=== PATIENT | male | born 1935 | race Caucasian/White ===

== ENCOUNTER 2018-07-30 22:55 | Emergency (ER) | payer MEDICARE, OTHER ==
[~2018-07-30] VITALS: Ht 180.3 cm; Wt 81.6 kg
[~2018-07-30 22:55] MED LIST: ACET325T21 PO; ALBU2.5V5 IH; AMLO5TAB7 PO; BISA10SU2 RC; CA C1TAB28 PO; CALC-98 PO; COLL30OI TP; DOCU-109 PO; FERR325T14 PO; FINA5TAB4 PO; GLIM2TAB PO; INSU100C SQ; INSU100I18 SQ; INSU100V31 SQ; LEVO125T5 PO; MULT-208 PO; POLY17PO29 PO; SITA50TA PO; TAMS0.4C2 PO; WARF-78 PO
[2018-07-31 00:12] LABS: BASO # 0.1 x10^3/uL (0.0-0.2); BASO % 1 % (0-3); EOS # 0.3 x10^3/uL (0.0-0.7); EOS % 4 % (0-3); HEMATOCRIT 29.1 % (39.0-53.0); HEMOGLOBIN 10.1 g/dL (13.0-17.5); LYMPH # 1.8 x10^3/uL (1.0-4.8); LYMPH % 26 % (24-48); MEAN CORPUSCULAR HEMOGLOBIN 31 pg (25-35); MEAN CORPUSCULAR HGB CONC 35 g/dL (31-37); MEAN CORPUSCULAR VOLUME 90 fL (79-100); MONO # 0.6 x10^3/uL (0.0-1.1); MONO % 8 % (0-9); NEUT # 4.1 x10^3uL (1.8-7.7); NEUT % 61 % (31-73); PLATELET COUNT 199 x10^3/uL (140-400); RED BLOOD COUNT 3.23 x10^6/uL (4.30-5.70); RED CELL DISTRIBUTION WIDTH 13.6 % (11.5-14.5); WHITE BLOOD COUNT 6.7 x10^3/uL (4.0-11.0)
--- NOTE | 2018-07-31 00:31 | PHYS DOC ---
Past Medical History Past Medical History: CAD, Diabetes-Type I, Hypothyroid, Prostatitis Additional Past Medical Histor: phabdomyolysis, anemia, fall, ulcer left foot, hypertrophy prostate Past Surgical History: Hip Replacement, Other Additional Past Surgical Histo: PARTIAL LEFT FOOT AMPUTATION Alcohol Use: None Drug Use: None Adult General Chief Complaint Chief Complaint: MECHANICAL FALL HPI HPI Patient is a 83 year old [f__sex] who presents with [] Review of Systems Review of Systems Constitutional: Denies fever or chills [] Eyes: Denies change in visual acuity, redness, or eye pain [] HENT: Denies nasal congestion or sore throat [] Respiratory: Denies cough or shortness of breath [] Cardiovascular: No additional information not addressed in HPI [] GI: Denies abdominal pain, nausea, vomiting, bloody stools or diarrhea [] : Denies dysuria or hematuria [] Musculoskeletal: Denies back pain or joint pain [] Integument: Denies rash or skin lesions [] Neurologic: Denies headache, focal weakness or sensory changes [] Endocrine: Denies polyuria or polydipsia [] All other systems were reviewed and found to be within normal limits, except as documented in this note. Allergies Allergies Allergies Coded Allergies Type Severity Reaction Last Updated Verified No Known Drug Allergies 10/14/15 No Physical Exam Physical Exam Constitutional: Well developed, well nourished, no acute distress, non-toxic appearance. [] HENT: Normocephalic, atraumatic, bilateral external ears normal, oropharynx moist, no oral exudates, nose normal. [] Eyes: PERRLA, EOMI, conjunctiva normal, no discharge. [] Neck: Normal range of motion, no tenderness, supple, no stridor. [] Cardiovascular:Heart rate regular rhythm, no murmur [] Lungs & Thorax: Bilateral breath sounds clear to auscultation [] Abdomen: Bowel sounds normal, soft, no tenderness, no masses, no pulsatile masses. [] Skin: Warm, dry, no erythema, no rash. [] Back: No tenderness, no CVA tenderness. [] Extremities: No tenderness, no cyanosis, no clubbing, ROM intact, no edema. [] Neurologic: Alert and oriented X 3, normal motor function, normal sensory function, no focal deficits noted. [] Psychologic: Affect normal, judgement normal, mood normal. [] Current Patient Data Vital Signs Vital Signs Date Time Temp Pulse Resp B/P (MAP) Pulse Ox O2 Delivery O2 Flow Rate FiO2 07/31/18 01:37 84 99 07/30/18 23:09 97.6 16 185/76 (112) Room Air 97.6 Lab Values Laboratory Tests Test 07/30/18 23:05 07/31/18 01:35 White Blood Count 6.7 x10^3/uL (4.0-11.0) Red Blood Count 3.23 x10^6/uL (4.30-5.70) L Hemoglobin 10.1 g/dL (13.0-17.5) L Hematocrit 29.1 % (39.0-53.0) L Mean Corpuscular Volume 90 fL (79-100) Mean Corpuscular Hemoglobin 31 pg (25-35) Mean Corpuscular Hemoglobin Concent 35 g/dL (31-37) Red Cell Distribution Width 13.6 % (11.5-14.5) Platelet Count 199 x10^3/uL (140-400) Neutrophils (%) (Auto) 61 % (31-73) Lymphocytes (%) (Auto) 26 % (24-48) Monocytes (%) (Auto) 8 % (0-9) Eosinophils (%) (Auto) 4 % (0-3) H Basophils (%) (Auto) 1 % (0-3) Neutrophils # (Auto) 4.1 x10^3uL (1.8-7.7) Lymphocytes # (Auto) 1.8 x10^3/uL (1.0-4.8) Monocytes # (Auto) 0.6 x10^3/uL (0.0-1.1) Eosinophils # (Auto) 0.3 x10^3/uL (0.0-0.7) Basophils # (Auto) 0.1 x10^3/uL (0.0-0.2) Prothrombin Time 15.0 SEC (11.7-14.0) H Prothrombin Time INR 1.2 (0.8-1.1) H PTT 36 SEC (24-38) Sodium Level 140 mmol/L (136-145) Potassium Level 4.6 mmol/L (3.5-5.1) Chloride Level 107 mmol/L (98-107) Carbon Dioxide Level 24 mmol/L (21-32) Anion Gap 9 (6-14) Blood Urea Nitrogen 29 mg/dL (8-26) H Creatinine 1.9 mg/dL (0.7-1.3) H Estimated GFR (Cockcroft-Gault) 33.9 BUN/Creatinine Ratio 15 (6-20) Glucose Level 263 mg/dL (70-99) H Calcium Level 8.4 mg/dL (8.5-10.1) L Magnesium Level 1.6 mg/dL (1.8-2.4) L Total Bilirubin 0.2 mg/dL (0.2-1.0) Aspartate Amino Transferase (AST) 17 U/L (15-37) Alanine Aminotransferase (ALT) 25 U/L (16-63) Alkaline Phosphatase 108 U/L (46-116) Creatine Kinase 107 U/L (39-308) Creatine Kinase MB (Mass) 1.4 ng/mL (0.0-3.6) Creatine Kinase MB Relative Index 1.3 % (0-4) Troponin I Quantitative < 0.017 ng/mL (0.000-0.055) Total Protein 6.6 g/dL (6.4-8.2) Albumin 2.8 g/dL (3.4-5.0) L Albumin/Globulin Ratio 0.7 (1.0-1.7) L Urine Collection Type Unknown Urine Color Yellow Urine Clarity Clear Urine pH 6.0 Urine Specific [place] 1.010 Urine Protein Negative mg/dL (NEG-TRACE) Urine Glucose (UA) 100 mg/dL (NEG) Urine Ketones (Stick) Negative mg/dL (NEG) Urine Blood Negative (NEG) Urine Nitrite Negative (NEG) Urine Bilirubin Negative (NEG) Urine Urobilinogen Dipstick 0.2 mg/dL (0.2 mg/dL) Urine Leukocyte Esterase Negative (NEG) Urine RBC Occ /HPF (0-2) Urine WBC Occ /HPF (0-4) Urine Squamous Epithelial Cells Few /LPF Urine Bacteria Few /HPF (0-FEW) Laboratory Tests 07/30/18 23:05 Laboratory Tests 07/30/18 23:05 EKG EKG @0018 NSR at 83bpm, NO ST elevation, Radiology/Procedures Radiology/Procedures [] Course & Med Decision Making Course & Med Decision Making Pertinent Labs and Imaging studies reviewed. (See chart for details) [] Dragon Disclaimer Dragon Disclaimer This electronic medical record was generated, in whole or in part, using a voice recognition dictation system. Departure Departure Impression: Primary Impression: Fall Additional Impressions: Contusion of hip, left Knee pain Disposition: 01 HOME, SELF-CARE Condition: STABLE Referrals: SHELLIE WILLIS MD (PCP) ALVAREZ GARCIA MD Patient Instructions: Arthritis, Nonspecific, [id number], Contusion, Easy-to- Read, Fall Prevention and Home Safety, [id number] Problem Qualifiers Primary Impression: Fall Encounter type: initial encounter Qualified Codes: W19.XXXA - Unspecified fall, initial encounter Additional Impressions: Contusion of hip, left Encounter type: initial encounter Qualified Codes: S70.02XA - Contusion of left hip, initial encounter Knee pain Chronicity: acute Laterality: left Qualified Codes: M25.562 - Pain in left knee SHANTHI WHITE DO Jul 31, 2018 00:31
[2018-07-31 00:32] LABS: CALCIUM 8.4 mg/dL (8.5-10.1); CREATININE 1.9 mg/dL (0.7-1.3); GFR 33.9; POTASSIUM 4.6 mmol/L (3.5-5.1)
[2018-07-31 00:37] LABS: ALBUMIN 2.8 g/dL (3.4-5.0); ALBUMIN/GLOBULIN RATIO 0.7 (1.0-1.7); MAGNESIUM 1.6 mg/dL (1.8-2.4); TOTAL BILIRUBIN 0.2 mg/dL (0.2-1.0); TOTAL PROTEIN 6.6 g/dL (6.4-8.2)
--- NOTE | 2018-07-31 01:42 | RAD ---
CT Head W/O Contrast: History: HEAD/NECK PAIN AFTER FALL X TONIGHT Comparison: none Axial images were obtained without contrast. There is moderate diffuse atrophy. There is no mass effect, extraaxial fluid collections or hydrocephalus. There is no gross bleed. Moderate diffuse periventricular and subcortical white matter hypoattenuation is seen. There is no focal loss of craig-white matter distinction to suggest acute ischemia, i.e. stroke. Impression: No acute findings. End impression CT C-Spine without contrast: Clinical History: HEAD/NECK PAIN AFTER FALL X TONIGHT Technique: Axial helical images of the cervical spine were obtained without contrast, axial coronal and sagittal reconstruction was performed. Findings: There is no loss of vertebral body stature. There is no prevertebral soft tissue swelling. The vertebral bodies are well aligned. The C1-C2 relationship is normal. The visualized osseous structures appear normal. Evaluation of the central canal is limited without contrast. There is multiple posterior disc bulges resulting in flattening of the thecal sac. There does not appear to be gross flattening of the cervical cord. There is marked narrowing of multiple neuroforamen. Impression: No acute findings. Clinical correlation suggested. PQRS Compliance Statement: One or more of the following individualized dose reduction techniques were utilized for this examination: 1. Automated exposure control 2. Adjustment of the mA and/or kV according to patient size 3. Use of iterative reconstruction technique Electronically signed by: Marcell Alfred III, MD (07/31/2018 1:39 AM) [facility]
[2018-07-31 01:45] LABS: BILIRUBIN,URINE NEGATIVE (NEG); CLARITY,URINE CLEAR; COLOR,URINE YELLOW; NITRITE,URINE NEGATIVE (NEG); PROTEIN,URINE NEGATIVE (NEG-TRACE); UROBILINOGEN,URINE 0.2 mg/dL (0.2 mg/dL)
--- NOTE | 2018-07-31 01:46 | RAD ---
Pelvis and two-view left hip HISTORY: Pain after fall AP view pelvis AP and frog-leg view left hip There is a left hip total arthroplasty. The visualized osseous structures appear normal. The femoral and acetabular components are aligned and well seated. There is ossification medial to the left hip. IMPRESSION: No acute findings. End impression 3 views left knee: AP lateral and oblique views of the left knee were obtained There is mild degenerative changes of all 3 compartments with marginal spurring. There is no interruption of cortex to suggest a fracture. IMPRESSION: No acute findings. Electronically signed by: Marcell Alfred III, MD (07/31/2018 1:42 AM) [facility]
--- NOTE | 2018-07-31 01:56 | EKG ---
[facility] [address] [place] [address] Test Date: 2018-07-31 Test Time: 00:18:49 Pat Name: SATINDER DELACRUZ Department: Room: Gender: M [employer] Administrator: : 1935 Requested By: SHANTHI WHITE Order Number: [id number] Reading MD: Bernardo Cuenca MD Measurements Intervals [place] Rate: 83 P: 0 CA: 242 QRS: -16 QRSD: 74 T: 30 QT: 348 QTc: 414 Interpretive Statements SINUS RHYTHM PROLONGED CA INTERVAL Electronically Signed On 08-01-2018 11:43:28 CDT by Bernardo Cuenca MD
[2018-07-31 01:57] LABS: BACTERIA,URINE FEW /HPF (0-FEW); RBC,URINE OCC /HPF (0-2); SQUAMOUS EPITHELIAL CELL,UR FEW /LPF; WBC,URINE OCC /HPF (0-4)
[2018-07-31 02:37] VITALS: BP 172/75
== END 2018-07-31 03:01 | disposition home or self-care (01) ==
LOC: ER 22:55
DX: S70.02XA Contusion of left hip, initial encounter (principal); M25.562 Pain in left knee; E10.9 Type 1 diabetes mellitus without complications; E03.9 Hypothyroidism, unspecified; I25.10 Atherosclerotic heart disease of native coronary artery without angina pectoris; Z96.642 Presence of left artificial hip joint; W01.0XXA Fall on same level from slipping, tripping and stumbling without subsequent striking against object, initial encounter; Y93.01 Activity, walking, marching and hiking; Y92.098 Other place in other non-institutional residence as the place of occurrence of the external cause; Y99.8 Other external cause status
CPT/HCPCS: 36415; 70450; 72125; 73502; 73562; 80053; 81001; 82553; 83735; 84484; 85025; 85610; 85730; 93005; 99285; P9612

== ENCOUNTER 2018-12-19 16:28 | Inpatient (IN) | payer MEDICARE, OTHER ==
[~2018-12-19] VITALS: Ht 182.9 cm; Wt 81.6 kg
[~2018-12-19 16:28] MED LIST changes: +AMLO5TAB10 PO; -AMLO5TAB7 PO
--- NOTE | 2018-12-19 16:58 | PHYS DOC ---
Past Medical History Past Medical History: CAD, Diabetes-Type I, Hypothyroid, Prostatitis Additional Past Medical Histor: phabdomyolysis, anemia, fall, ulcer left foot, hypertrophy prostate Past Surgical History: Hip Replacement, Other Additional Past Surgical Histo: PARTIAL LEFT FOOT AMPUTATION Alcohol Use: None Drug Use: None Adult General Chief Complaint Chief Complaint: ABNORMAL LABS HPI HPI Patient is an 83-year-old male who presents to the emergency department for evaluation. He arrives from his nursing facility for reportedly abnormal labs, and his potassium was reportedly 5.4. He has no complaints at this time. Denies any pain, or shortness of breath. He is oriented to person and time, but not to place. He denies any nausea, vomiting, abdominal pain, or urinary symptoms. There are no alleviating or exacerbating factors to his symptoms otherwise. Review of Systems Review of Systems Constitutional: Denies fever or chills [] Eyes: Denies change in visual acuity, redness, or eye pain [] HENT: Denies nasal congestion or sore throat [] Respiratory: Denies cough or shortness of breath [] Cardiovascular:The patient denies any shortness of breath, chest pain, palpitations, or orthopnea [] GI: Denies abdominal pain, nausea, vomiting, bloody stools or diarrhea [] : Denies dysuria or hematuria [] Musculoskeletal: Denies back pain or joint pain [] Integument: Denies rash or skin lesions [] Neurologic: Denies headache, focal weakness or sensory changes [] Endocrine: Denies polyuria or polydipsia [] All other systems were reviewed and found to be within normal limits, except as documented in this note. Current Medications Current Medications Current Medications Medications (Trade) Dose Ordered Sig/Karol Start Time Stop Time Status Last Admin Dose Admin Sodium Chloride 1,000 ml @ 125 mls/hr 1X ONCE 12/19/18 20:00 12/20/18 03:59 Allergies Allergies Allergies Coded Allergies Type Severity Reaction Last Updated Verified No Known Drug Allergies 10/14/15 No Physical Exam Physical Exam PHYSICAL EXAM: CONSTITUTIONAL: Well developed, well nourished HEAD: normocephalic, atraumatic EENT: PERRL, EOMI. Conjunctivae normal color, sclerae non-icteric; moist mucous membranes. NECK: Supple, non-tender; no meningismus. LUNGS: Lungs CTA, breathing even and unlabored. Normal air movement. HEART: Regular rate and rhythm, no murmur CHEST: No deformity; non-tender ABDOMEN: The abdomen is soft, there is mild diffuse tenderness to palpation of the abdomen, without focal tenderness, rebound, or guarding, normal bowel sounds are present. EXTREM: Normal ROM; no deformity, no calf tenderness. Normal pulses palpable in all extremities. There is no pedal edema. SKIN: No rash; no diaphoresis NEURO: Alert; normal speech and cognition; CN's grossly intact; strength grossly intact without focal deficit. BACK: No CVA TTP. Current Patient Data Vital Signs Vital Signs Date Time Temp Pulse Resp B/P (MAP) Pulse Ox O2 Delivery O2 Flow Rate FiO2 12/19/18 19:02 90 17 117/57 (77) 98 Room Air 12/19/18 16:28 97.8 97.8 Lab Values Laboratory Tests Test 12/19/18 18:10 White Blood Count 7.0 x10^3/uL (4.0-11.0) Red Blood Count 3.45 x10^6/uL (4.30-5.70) L Hemoglobin 10.1 g/dL (13.0-17.5) L Hematocrit 31.5 % (39.0-53.0) L Mean Corpuscular Volume 91 fL (79-100) Mean Corpuscular Hemoglobin 29 pg (25-35) Mean Corpuscular Hemoglobin Concent 32 g/dL (31-37) Red Cell Distribution Width 13.3 % (11.5-14.5) Platelet Count 234 x10^3/uL (140-400) Neutrophils (%) (Auto) 63 % (31-73) Lymphocytes (%) (Auto) 25 % (24-48) Monocytes (%) (Auto) 9 % (0-9) Eosinophils (%) (Auto) 2 % (0-3) Basophils (%) (Auto) 1 % (0-3) Neutrophils # (Auto) 4.4 x10^3uL (1.8-7.7) Lymphocytes # (Auto) 1.8 x10^3/uL (1.0-4.8) Monocytes # (Auto) 0.6 x10^3/uL (0.0-1.1) Eosinophils # (Auto) 0.1 x10^3/uL (0.0-0.7) Basophils # (Auto) 0.0 x10^3/uL (0.0-0.2) Prothrombin Time 18.0 SEC (11.7-14.0) H Prothrombin Time INR 1.5 (0.8-1.1) H Sodium Level 139 mmol/L (136-145) Potassium Level 5.9 mmol/L (3.5-5.1) H Chloride Level 109 mmol/L (98-107) H Carbon Dioxide Level 19 mmol/L (21-32) L Anion Gap 11 (6-14) Blood Urea Nitrogen 46 mg/dL (8-26) H Creatinine 2.3 mg/dL (0.7-1.3) H Estimated GFR (Cockcroft-Gault) 27.2 BUN/Creatinine Ratio 20 (6-20) Glucose Level 199 mg/dL (70-99) H Calcium Level 8.9 mg/dL (8.5-10.1) Total Bilirubin 0.2 mg/dL (0.2-1.0) Aspartate Amino Transferase (AST) 14 U/L (15-37) L Alanine Aminotransferase (ALT) 18 U/L (16-63) Alkaline Phosphatase 100 U/L (46-116) Troponin I Quantitative < 0.017 ng/mL (0.000-0.055) NQ-Dxv-Q-Type Natriuretic Peptide 248 pg/mL (0-449) Total Protein 7.1 g/dL (6.4-8.2) Albumin 2.9 g/dL (3.4-5.0) L Albumin/Globulin Ratio 0.7 (1.0-1.7) L Laboratory Tests 12/19/18 18:10 Laboratory Tests 12/19/18 18:10 EKG EKG [Normal sinus rhythm at a rate of 94 beats for minute, left axis deviation, normal intervals. No acute ischemic ST/T changes.] Radiology/Procedures Radiology/Procedures [] Course & Med Decision Making Course & Med Decision Making Pertinent Labs and Imaging studies reviewed. (See chart for details) [8:05 PM: The patient's condition remains stable. I spoke with the patient's PCP, who accepted the patient to the hospital for further evaluation and treatment.] Dragon Disclaimer Dragon Disclaimer This electronic medical record was generated, in whole or in part, using a voice recognition dictation system. Departure Departure Impression: Primary Impression: Acute renal failure Additional Impressions: Dehydration Hyperkalemia Disposition: 09 ADMITTED INPATIENT Admitting Physician: Shellie Willis Condition: STABLE Referrals: SHELLIE WILLIS MD (PCP) Problem Qualifiers SATINDER WEST MD Dec 19, 2018 16:58
[2018-12-19 18:24] LABS: BASO % 1 % (0-3); EOS # 0.1 x10^3/uL (0.0-0.7); EOS % 2 % (0-3); HEMATOCRIT 31.5 % (39.0-53.0); HEMOGLOBIN 10.1 g/dL (13.0-17.5); LYMPH # 1.8 x10^3/uL (1.0-4.8); LYMPH % 25 % (24-48); MEAN CORPUSCULAR HEMOGLOBIN 29 pg (25-35); MEAN CORPUSCULAR HGB CONC 32 g/dL (31-37); MEAN CORPUSCULAR VOLUME 91 fL (79-100); MONO # 0.6 x10^3/uL (0.0-1.1); MONO % 9 % (0-9); NEUT # 4.4 x10^3uL (1.8-7.7); NEUT % 63 % (31-73); PLATELET COUNT 234 x10^3/uL (140-400); RED BLOOD COUNT 3.45 x10^6/uL (4.30-5.70); RED CELL DISTRIBUTION WIDTH 13.3 % (11.5-14.5)
[2018-12-19 18:31] LABS: CALCIUM 8.9 mg/dL (8.5-10.1); CREATININE 2.3 mg/dL (0.7-1.3); GFR 27.2; POTASSIUM 5.9 mmol/L (3.5-5.1)
[2018-12-19 18:37] LABS: ALBUMIN 2.9 g/dL (3.4-5.0); ALBUMIN/GLOBULIN RATIO 0.7 (1.0-1.7); TOTAL BILIRUBIN 0.2 mg/dL (0.2-1.0); TOTAL PROTEIN 7.1 g/dL (6.4-8.2)
[2018-12-19] MEDS ORDERED: IV NORMAL SALINE 1000ML BAG 1,000 ML IV ONE (20:00)
[2018-12-19] MEDS ORDERED: IV NORMAL SALINE 500ML BAG 500 ML IV ONE (20:00)
--- NOTE | 2018-12-19 21:52 | NUR ---
The patient, SATINDER DELACRUZ, 83 y/o, M admitted by SHELLIE WILLIS MD, was given written information regarding hospital policies, unit procedures and contact persons. Valuables were checked and left with him.
[2018-12-19 22:00] VITALS: BP 137/67
[2018-12-20] MEDS ORDERED: INSU100I27 SQ (00:43)
[2018-12-20] MEDS ORDERED: LEVO137T3 PO (00:52)
[2018-12-20] MEDS ORDERED: MENT118G TP (01:03)
[2018-12-20] MEDS ORDERED: GABA-585 PO (01:03)
[2018-12-20] MEDS ORDERED: FLUT9.9S NS (01:03)
[2018-12-20] MEDS ORDERED: LINA5TAB PO (01:03)
[2018-12-20] MEDS ORDERED: CETI10TA22 PO (01:03)
[2018-12-20] MEDS ORDERED: RIVA15TA PO (01:03)
[2018-12-20] MEDS ORDERED: LISI10TA2 PO (01:03)
[2018-12-20] MEDS ORDERED: CHOL10003 PO (01:03)
[2018-12-20] MEDS ORDERED: DEXTROSE 50% 25 GM / 50ML DISP.SYRIN. IV PRN (01:15)
[2018-12-20] MEDS ORDERED: NYSTATIN TOPICAL POWDER 15GM BOTTLE. TP ONE (02:00)
[2018-12-20 03:00] VITALS: BP 150/60
[2018-12-20 06:05] LABS: BASO % 1 % (0-3); EOS # 0.1 x10^3/uL (0.0-0.7); EOS % 2 % (0-3); HEMATOCRIT 30.4 % (39.0-53.0); HEMOGLOBIN 9.6 g/dL (13.0-17.5); LYMPH # 1.2 x10^3/uL (1.0-4.8); LYMPH % 18 % (24-48); MEAN CORPUSCULAR HEMOGLOBIN 29 pg (25-35); MEAN CORPUSCULAR HGB CONC 32 g/dL (31-37); MEAN CORPUSCULAR VOLUME 92 fL (79-100); MONO # 0.6 x10^3/uL (0.0-1.1); MONO % 9 % (0-9); NEUT # 4.7 x10^3uL (1.8-7.7); NEUT % 70 % (31-73); PLATELET COUNT 211 x10^3/uL (140-400); RED BLOOD COUNT 3.32 x10^6/uL (4.30-5.70); RED CELL DISTRIBUTION WIDTH 13.3 % (11.5-14.5); WHITE BLOOD COUNT 6.6 x10^3/uL (4.0-11.0)
[2018-12-20 07:00] VITALS: BP 148/50
--- NOTE | 2018-12-20 07:34 | EKG ---
[facility] [address] [place] [address] Test Date: 2018-12-19 Test Time: 17:09:59 Pat Name: SATINDER DELACRUZ Department: Room: 516 1 Gender: M [employer] Tender: : 1935 Requested By: SATINDER WEST Order Number: [id number] Reading MD: Bernardo Cuenca MD Measurements Intervals [place] Rate: 94 P: -6 VA: 218 QRS: -18 QRSD: 70 T: 5 QT: 318 QTc: 398 Interpretive Statements SINUS RHYTHM PROLONGED VA INTERVAL LEFTWARD AXIS QRS(T) CONTOUR ABNORMALITY CONSISTENT WITH INFERIOR INFARCT PROBABLY OLD ABNORMAL ECG Electronically Signed On 12-23-2018 16:01:38 CDT by Bernardo Cuenca MD
[2018-12-20 07:50] LABS: CALCIUM 8.7 mg/dL (8.5-10.1); CREATININE 1.6 mg/dL (0.7-1.3); GFR 41.4; POTASSIUM 4.9 mmol/L (3.5-5.1)
--- NOTE | 2018-12-20 07:57 | NUR ---
Chart review done and spoke w/ RN. Pt from [place]. RN indicated pt was normally up w/ RW and weak at this time. Would benefit from PT/OT Eval and Treat. Addendum: 12/20/18 at 0758 by JOSE BONILLA OT Amended: Links added.
[2018-12-20] MEDS ORDERED: ALBUTEROL SULFATE 2.5 MG/3 ML NEBU. NEB PRN (09:00)
[2018-12-20] MEDS ORDERED: ACETAMINOPHEN 325 MG TABLET. PO PRN (09:00)
[2018-12-20] MEDS ORDERED: NON FORMULARY ITEM (Menthol (Biofreeze) 118 ML) TP PRN (09:00)
--- NOTE | 2018-12-20 09:04 | HP ---
ADMIT DATE: 12/19/2018 CHIEF COMPLAINT AND HISTORY OF PRESENT ILLNESS: This 83-year-old, [facility] resident, is sent to the Emergency Department for evaluation because of abnormal labs. The patient had not been acting or eating quite right for a while, necessitating the labs. He had acute renal failure as well as hyperkalemia, was sent to the Emergency Room where this was confirmed and the patient was admitted. PAST MEDICAL HISTORY: Remarkable for coronary artery disease, diabetes, hypothyroidism, prostatitis, BPH, history of rhabdomyolysis, anemia, prior ulcer of the left foot. PAST SURGICAL HISTORY: He has had a prior hip replacement and partial left foot amputation. MEDICATIONS: Brought with the patient, listed on the computer and have been addressed. ALLERGIES: He has no known drug allergies. SOCIAL HISTORY: He is a long term resident, nonsmoker, nondrinker, does not use drugs. FAMILY HISTORY: Noncontributory. REVIEW OF SYSTEMS: Remarkable just for generally not feeling well and really does not like the hospital bed. PHYSICAL EXAMINATION: GENERAL: He is a well-developed, well-nourished white male, in no acute distress. VITAL SIGNS: Stable. He is afebrile. HEAD, EYES, EARS, NOSE AND THROAT: Unremarkable. NECK: Supple without adenopathy or thyromegaly. CHEST: Clear to auscultation and percussion. HEART: Regular rate and rhythm without S3, S4, or murmur. ABDOMEN: Soft, nontender, without hepatosplenomegaly or masses. EXTREMITIES: Without cyanosis or clubbing, significant edema. NEUROLOGIC: He is intact without focal deficits. LABORATORY DATA: On admission revealed a hemoglobin of 10.1. Initial BUN and creatinine are 46 and 2.3, with a potassium of 5.9. By the following morning of my dictation, his potassium is down to 4.9, BUN and creatinine have decreased at 37 and 1.6. IMPRESSION: 1. Acute renal failure with hyperkalemia, likely related to dehydration. 2. Other problems listed above. PLAN: The patient has been admitted. Renal will be asked for any suggestions and the patient will be monitored, managed and treated appropriately. SHELLIE WILLIS MD DR: NILDA/radha JOB#: [id number] / [id number]
[2018-12-20] MEDS: GABAPENTIN 100 MG CAPSULE. PO SCH ×3 (09:32→21:15)
[2018-12-20] MEDS: CHOLECALCIFEROL (VITAMIN D3) 1,000 UNIT TABLET PO SCH (09:32)
[2018-12-20] MEDS: MULTIVITAMIN with MINERAL TABLET. PO SCH (09:32)
[2018-12-20] MEDS: NYSTATIN TOPICAL POWDER 15GM BOTTLE. TP SCH ×2 (09:32→21:15)
[2018-12-20] MEDS: FLUTICASONE 50MCG/NASAL SPRAY 16GM BOTTLE. NS SCH (09:32)
[2018-12-20] MEDS: LEVOTHYROXINE 137 MCG TABLET PO SCH (09:32)
[2018-12-20] MEDS: FERROUS SULFATE 325 MG TABLET. PO SCH (09:32)
[2018-12-20] MEDS: VITAMIN B COMPLEX TABLET. PO SCH (09:32)
[2018-12-20] MEDS: CALCIUM CARB/VIT D3 500/200 TABLET. PO SCH ×2 (09:33→17:14)
[2018-12-20] MEDS: POLYETHYLENE GLYCOL 3350 17 GM PACKET. PO SCH (09:33)
[2018-12-20] MEDS: amLODIPine BESYLATE 5 MG TABLET PO SCH (09:33)
[2018-12-20] MEDS: LINAGLIPTIN 5 MG TABLET PO SCH (09:33)
[2018-12-20] MEDS: CETIRIZINE HCL 10 MG TABLET. PO SCH (09:33)
[2018-12-20] MEDS: INSULIN GLARGINE 300 UNITS/3 ML INSULN.PEN. SQ SCH ×2 (09:40→21:23)
[2018-12-20] MEDS: DOCUSATE SODIUM 100 MG CAPSULE. PO SCH ×2 (09:45→21:15)
--- NOTE | 2018-12-20 09:52 | NUR ---
Pt refused 1000 docusate sodium, did not want to take anymore pills. Admin Miralax for.
--- NOTE | 2018-12-20 10:09 | PDOC2 ---
CONSULT Date of Consult Date of Consult DATE: 12/20/18 TIME: 09:56 Reason for Consult Reason for Consult: GOVIND, Hyperkalemia Source Source: Chart review, Patient History of Present Illness Reason for Visit: Pt is 83-year-old, [facility] resident, is sent to the Emergency Department for evaluation because of abnormal labs. The patient had not been acting or eating quite right for a while, necessitating the labs. He had acute renal failure as well as hyperkalemia, was sent to the Emergency Room where this was confirmed and the patient was admitted. Currently denies any CP, SOB. No N/V/D. No Urinary complaints . Just feeling weak Current Problem List Problem List Problems Medical Problems: (1) Acute renal failure Status: Acute (2) Dehydration Status: Acute (3) Hyperkalemia Status: Acute Current Medications Current Medications Current Medications Sodium Chloride 500 ml @ 500 mls/hr 1X ONCE IV Last administered on at 20:33; Start 12/19/18 at 20:00; Stop 12/19/18 at 20:59; Status DC Sodium Chloride 1,000 ml @ 125 mls/hr 1X ONCE IV Last administered on at 20:34; Start 12/19/18 at 20:00; Stop 12/20/18 at 03:59; Status DC Dextrose (Dextrose 50%-Water Syringe) 12.5 gm PRN Q15MIN PRN IV SEE COMMENTS; Start 12/20/18 at 01:15 Nystatin (Nystop) 1 cameron BID TP Last administered on 12/20/18at 09:32; Start at 09:00 Nystatin (Nystop) 1 cameron 1X ONCE TP Last administered on 12/20/18at 01:57; Start 12/20/18 at 02:00; Stop 12/20/18 at 02:01; Status DC Acetaminophen (Tylenol) 325 mg PRN Q4HRS PRN PO MODERATE PAIN; Start 12/20/18 at 09:00 Albuterol Sulfate (Ventolin Neb Soln) 2.5 mg PRN Q6HRS PRN NEB SHORTNESS OF BREATH; Start 12/20/18 at 09:00 Amlodipine Besylate (Norvasc) 5 mg DAILY PO Last administered on 12/20/18at 09: 33; Start 12/20/18 at 10:00 Cetirizine HCl (ZyrTEC) 10 mg DAILY PO Last administered on 12/20/18 09:33; Start 12/20/18 at 10:00 Vitamin D (Vitamin D3) 1,000 unit DAILY PO Last administered on 12/20/18 09:32 ; Start 12/20/18 at 10:00 Docusate Sodium (Colace) 100 mg BID PO ; Start 12/20/18 at 10:00 Ferrous Sulfate (Feosol) 325 mg DAILY PO Last administered on 12/20/18 09:32; Start 12/20/18 at 10:00 Finasteride (Proscar) 5 mg HS PO ; Start 12/20/18 at 21:00 Gabapentin (Neurontin) 100 mg TID PO Last administered on 12/20/18 09:32; Start 12/20/18 at 10:00 Levothyroxine Sodium (Synthroid) 137 mcg DAILY07 PO Last administered on 09:32; Start 12/20/18 at 10:00 Linagliptin (Tradjenta) 5 mg DAILY PO Last administered on 12/20/18 09:33; Start 12/20/18 at 10:00 Rivaroxaban (Xarelto) 15 mg DAILYWSUP PO ; Start 12/20/18 at 17:00 Vitamin B Complex (Surinder B) 1 tab DAILY PO Last administered on 12/20/18 09:32 ; Start 12/20/18 at 10:00 Calcium/Vitamin D (Oscal D 500mg/ 200uts) 1 tab BIDWMEALS PO Last administered on 12/20/18 09:33; Start 12/20/18 at 10:00 Fluticasone Propionate (Flonase) 2 spray DAILY NS Last administered on 09:32; Start 12/20/18 at 10:00 Insulin Glargine (Lantus) 8 units QHS SQ ; Start 12/20/18 at 21:00 Insulin Glargine (Lantus) 25 units DAILY SQ Last administered on 12/20/18 09: 40; Start 12/20/18 at 10:00 Non-Formulary Medication (Menthol (Biofreeze)) 118 ml QIDPRN PRN TP PAIN; Start 12/20/18 at 09:00; Status UNV Multivitamins (Thera M Plus) 1 tab DAILY PO Last administered on 12/20/18at 09: 32; Start 12/20/18 at 10:00 Polyethylene Glycol (miraLAX PACKET) 17 gm DAILY PO Last administered on at 09:33; Start 12/20/18 at 10:00 Active Scripts Active Reported Gabapentin (Gabapentin) 100 Mg Capsule 100 Mg PO TID Flonase Allergy Relief (Fluticasone Propionate) 9.9 Ml [place].susp 2 Sprays NS DAILY Biofreeze (Menthol) 118 Ml Gel..ml. 118 Ml TP QIDPRN PRN Tradjenta (Linagliptin) 5 Mg Tablet 5 Mg PO DAILY Lisinopril 10 Mg Tablet 1 Tab PO DAILY Zyrtec (Cetirizine Hcl) 10 Mg Tablet 1 Tab PO DAILY Xarelto (Rivaroxaban) 15 Mg Tablet 15 Mg PO DAILY Vitamin D3 (Cholecalciferol (Vitamin D3)) 1,000 Unit Tablet 1 Tab PO DAILY Levothyroxine Sodium 137 Mcg Tablet 1 Tab PO DAILY Levemir Flextouch (Insulin Detemir) 100 Unit/1 Ml Insuln.pen 25 Unit SQ AM Multi-Day Vitamins (Multivitamin) 1 Each Tablet 1 Tab PO DAILY Miralax (Polyethylene Glycol 3350) 17 Gm Powd.pack 1 Packet PO DAILY Levemir Flexpen (Insulin Detemir) 100 Unit/1 Ml Insuln.pen 8 Unit SQ HS Albuterol Sulfate Neb Soln (Albuterol Sulfate) 2.5 Mg/3 Ml Vial.neb 2.5 Mg IH Q6HRS PRN Acetaminophen 325 Mg Tablet 325 Mg PO Q4HRS PRN Finasteride 5 Mg Tablet 5 Mg PO HS Colace (Docusate Sodium) 100 Mg Capsule 100 Mg PO BID Calcium + Vitamin D Tablet (Calcium Carbonate/Vitamin D3) 1 Each Tablet 500,200 Each PO BID Ferrous Sulfate 325 Mg Tablet 325 Mg PO DAILY Amlodipine Besylate 5 Mg Tablet 5 Mg PO DAILY Vitamin D3 1,000 Unit Tablet (Ca Cmb No.1/Vit D3/B-6/Fa/B12) 1 Each Tablet 1 Each PO DAILY Allergies Allergies: Coded Allergies: No Known Drug Allergies (Unverified , 10/14/15) ROS Review of System As per HPI Physical Exam Physical Exam GENERAL: NAD HEEN: Unremarkable, OM moist NECK: Supple CHEST: Clear to auscultation, Non labored breathing HEART: Regular rate and rhythm without S3, S4, or murmur. ABDOMEN: Soft, nontender, EXTREMITIES: Without cyanosis or clubbing, significant edema. NEUROLOGIC: Grossly Normal - No CVA or SP tenderness, No Hubbard Skin No Rash Vital Signs Vital Signs Date Time Temp Pulse Resp B/P (MAP) Pulse Ox O2 Delivery O2 Flow Rate FiO2 12/20/18 09:33 75 148/50 12/20/18 08:00 Room Air 12/20/18 07:00 98.0 16 100 98.0 Assessment & Plan GOVIND- Suspect Dehydration due to Poor PO intake Creat peaked at 2.3 , Improving down to 1.6 Recd IV NS, continue if Poor PO intake Monitor Strict I/O, daily weight (standing) repeat labs in am Hyperkalemia- K Normal this am Holding lisinopril Hypernatremia- Mild Sec to Dehydration CKD stage 3- Suspect Diab and HTN Nephrosclerosis Baseline Cr based on [facility] records 1.3-1.6 since 2012 DM- Primary managing HTN- On amlodipine and Lisinopril at Home 'Hold Lisinopril Labs Labs Laboratory Tests Test 12/19/18 18:10 12/19/18 22:16 12/20/18 05:50 12/20/18 08:18 White Blood Count 7.0 x10^3/uL (4.0-11.0) 6.6 x10^3/uL (4.0-11.0) Red Blood Count 3.45 x10^6/uL (4.30-5.70) 3.32 x10^6/uL (4.30-5.70) Hemoglobin 10.1 g/dL (13.0-17.5) 9.6 g/dL (13.0-17.5) Hematocrit 31.5 % (39.0-53.0) 30.4 % (39.0-53.0) Mean Corpuscular Volume 91 fL (79-100) 92 fL (79-100) Mean Corpuscular Hemoglobin 29 pg (25-35) 29 pg (25-35) Mean Corpuscular Hemoglobin Concent 32 g/dL (31-37) 32 g/dL (31-37) Red Cell Distribution Width 13.3 % (11.5-14.5) 13.3 % (11.5-14.5) Platelet Count 234 x10^3/uL (140-400) 211 x10^3/uL (140-400) Neutrophils (%) (Auto) 63 % (31-73) 70 % (31-73) Lymphocytes (%) (Auto) 25 % (24-48) 18 % (24-48) Monocytes (%) (Auto) 9 % (0-9) 9 % (0-9) Eosinophils (%) (Auto) 2 % (0-3) 2 % (0-3) Basophils (%) (Auto) 1 % (0-3) 1 % (0-3) Neutrophils # (Auto) 4.4 x10^3uL (1.8-7.7) 4.7 x10^3uL (1.8-7.7) Lymphocytes # (Auto) 1.8 x10^3/uL (1.0-4.8) 1.2 x10^3/uL (1.0-4.8) Monocytes # (Auto) 0.6 x10^3/uL (0.0-1.1) 0.6 x10^3/uL (0.0-1.1) Eosinophils # (Auto) 0.1 x10^3/uL (0.0-0.7) 0.1 x10^3/uL (0.0-0.7) Basophils # (Auto) 0.0 x10^3/uL (0.0-0.2) 0.0 x10^3/uL (0.0-0.2) Prothrombin Time 18.0 SEC (11.7-14.0) Prothromb Time International Ratio 1.5 (0.8-1.1) Sodium Level 139 mmol/L (136-145) 146 mmol/L (136-145) Potassium Level 5.9 mmol/L (3.5-5.1) 4.9 mmol/L (3.5-5.1) Chloride Level 109 mmol/L (98-107) 113 mmol/L (98-107) Carbon Dioxide Level 19 mmol/L (21-32) 21 mmol/L (21-32) Anion Gap 11 (6-14) 12 (6-14) Blood Urea Nitrogen 46 mg/dL (8-26) 37 mg/dL (8-26) Creatinine 2.3 mg/dL (0.7-1.3) 1.6 mg/dL (0.7-1.3) Estimated GFR (Cockcroft-Gault) 27.2 41.4 BUN/Creatinine Ratio 20 (6-20) Glucose Level 199 mg/dL (70-99) 72 mg/dL (70-99) Calcium Level 8.9 mg/dL (8.5-10.1) 8.7 mg/dL (8.5-10.1) Total Bilirubin 0.2 mg/dL (0.2-1.0) Aspartate Amino Transf (AST/SGOT) 14 U/L (15-37) Alanine Aminotransferase (ALT/SGPT) 18 U/L (16-63) Alkaline Phosphatase 100 U/L (46-116) Troponin I Quantitative < 0.017 ng/mL (0.000-0.055) EX-Mzm-W-Type Natriuretic Peptide 248 pg/mL (0-449) Total Protein 7.1 g/dL (6.4-8.2) Albumin 2.9 g/dL (3.4-5.0) Albumin/Globulin Ratio 0.7 (1.0-1.7) Glucose (Fingerstick) 87 mg/dL (70-99) 74 mg/dL (70-99) Laboratory Tests Test 12/19/18 18:10 12/19/18 22:16 12/20/18 05:50 12/20/18 08:18 White Blood Count 7.0 x10^3/uL (4.0-11.0) 6.6 x10^3/uL (4.0-11.0) Red Blood Count 3.45 x10^6/uL (4.30-5.70) 3.32 x10^6/uL (4.30-5.70) Hemoglobin 10.1 g/dL (13.0-17.5) 9.6 g/dL (13.0-17.5) Hematocrit 31.5 % (39.0-53.0) 30.4 % (39.0-53.0) Mean Corpuscular Volume 91 fL (79-100) 92 fL (79-100) Mean Corpuscular Hemoglobin 29 pg (25-35) 29 pg (25-35) Mean Corpuscular Hemoglobin Concent 32 g/dL (31-37) 32 g/dL (31-37) Red Cell Distribution Width 13.3 % (11.5-14.5) 13.3 % (11.5-14.5) Platelet Count 234 x10^3/uL (140-400) 211 x10^3/uL (140-400) Neutrophils (%) (Auto) 63 % (31-73) 70 % (31-73) Lymphocytes (%) (Auto) 25 % (24-48) 18 % (24-48) Monocytes (%) (Auto) 9 % (0-9) 9 % (0-9) Eosinophils (%) (Auto) 2 % (0-3) 2 % (0-3) Basophils (%) (Auto) 1 % (0-3) 1 % (0-3) Neutrophils # (Auto) 4.4 x10^3uL (1.8-7.7) 4.7 x10^3uL (1.8-7.7) Lymphocytes # (Auto) 1.8 x10^3/uL (1.0-4.8) 1.2 x10^3/uL (1.0-4.8) Monocytes # (Auto) 0.6 x10^3/uL (0.0-1.1) 0.6 x10^3/uL (0.0-1.1) Eosinophils # (Auto) 0.1 x10^3/uL (0.0-0.7) 0.1 x10^3/uL (0.0-0.7) Basophils # (Auto) 0.0 x10^3/uL (0.0-0.2) 0.0 x10^3/uL (0.0-0.2) Prothrombin Time 18.0 SEC (11.7-14.0) Prothromb Time International Ratio 1.5 (0.8-1.1) Sodium Level 139 mmol/L (136-145) 146 mmol/L (136-145) Potassium Level 5.9 mmol/L (3.5-5.1) 4.9 mmol/L (3.5-5.1) Chloride Level 109 mmol/L (98-107) 113 mmol/L (98-107) Carbon Dioxide Level 19 mmol/L (21-32) 21 mmol/L (21-32) Anion Gap 11 (6-14) 12 (6-14) Blood Urea Nitrogen 46 mg/dL (8-26) 37 mg/dL (8-26) Creatinine 2.3 mg/dL (0.7-1.3) 1.6 mg/dL (0.7-1.3) Estimated GFR (Cockcroft-Gault) 27.2 41.4 BUN/Creatinine Ratio 20 (6-20) Glucose Level 199 mg/dL (70-99) 72 mg/dL (70-99) Calcium Level 8.9 mg/dL (8.5-10.1) 8.7 mg/dL (8.5-10.1) Total Bilirubin 0.2 mg/dL (0.2-1.0) Aspartate Amino Transf (AST/SGOT) 14 U/L (15-37) Alanine Aminotransferase (ALT/SGPT) 18 U/L (16-63) Alkaline Phosphatase 100 U/L (46-116) Troponin I Quantitative < 0.017 ng/mL (0.000-0.055) MT-Yve-D-Type Natriuretic Peptide 248 pg/mL (0-449) Total Protein 7.1 g/dL (6.4-8.2) Albumin 2.9 g/dL (3.4-5.0) Albumin/Globulin Ratio 0.7 (1.0-1.7) Glucose (Fingerstick) 87 mg/dL (70-99) 74 mg/dL (70-99) Review All relevant outside records, renal labs, imaging studies, telemetry/EKG's were reviewed. RUMA BADILLO MD Dec 20, 2018 10:09
[2018-12-20 11:14] VITALS: BP 154/71
[2018-12-20 14:36] VITALS: BP 113/46
--- NOTE | 2018-12-20 15:43 | NUR ---
SW responding to a referral regarding pt is resident from [facility]. SW confirmed with Aimme at [facility] pt is LTC resident at facility and plan of return upon dc. Will continue to follow.
[2018-12-20] MEDS: RIVAROXABAN 15 MG TABLET. PO SCH (17:14)
[2018-12-20 19:00] VITALS: BP 116/43
[2018-12-20] MEDS: FINASTERIDE 5 MG TABLET. PO SCH (21:15)
[2018-12-20 23:00] VITALS: BP 152/65
[2018-12-21 03:00] VITALS: BP 127/77
[2018-12-21] MEDS: LEVOTHYROXINE 137 MCG TABLET PO SCH (05:20)
[2018-12-21 07:00] VITALS: BP 139/64
[2018-12-21 08:14] LABS: CALCIUM 8.7 mg/dL (8.5-10.1); CREATININE 1.5 mg/dL (0.7-1.3); GFR 44.6; POTASSIUM 4.7 mmol/L (3.5-5.1)
[2018-12-21] MEDS: CALCIUM CARB/VIT D3 500/200 TABLET. PO SCH ×2 (09:19→17:17)
[2018-12-21] MEDS: DOCUSATE SODIUM 100 MG CAPSULE. PO SCH ×2 (09:19→22:46)
[2018-12-21] MEDS: FLUTICASONE 50MCG/NASAL SPRAY 16GM BOTTLE. NS SCH (09:19)
[2018-12-21] MEDS: CHOLECALCIFEROL (VITAMIN D3) 1,000 UNIT TABLET PO SCH (09:20)
[2018-12-21] MEDS: FERROUS SULFATE 325 MG TABLET. PO SCH (09:20)
[2018-12-21] MEDS: CETIRIZINE HCL 10 MG TABLET. PO SCH (09:20)
[2018-12-21] MEDS: NYSTATIN TOPICAL POWDER 15GM BOTTLE. TP SCH ×2 (09:21→22:47)
[2018-12-21] MEDS: INSULIN GLARGINE 300 UNITS/3 ML INSULN.PEN. SQ SCH ×2 (09:21→22:57)
[2018-12-21] MEDS: GABAPENTIN 100 MG CAPSULE. PO SCH ×3 (09:22→22:46)
[2018-12-21] MEDS: POLYETHYLENE GLYCOL 3350 17 GM PACKET. PO SCH (09:22)
[2018-12-21] MEDS: VITAMIN B COMPLEX TABLET. PO SCH (09:22)
[2018-12-21] MEDS: amLODIPine BESYLATE 5 MG TABLET PO SCH (09:23)
[2018-12-21] MEDS: MULTIVITAMIN with MINERAL TABLET. PO SCH (09:23)
[2018-12-21] MEDS: LINAGLIPTIN 5 MG TABLET PO SCH (09:23)
--- NOTE | 2018-12-21 10:55 | PN ---
DATE: 12/21/2018 PATIENT LOCATION: Room 506. SUBJECTIVE: The patient is awake, alert. Denies any complaints. OBJECTIVE: VITAL SIGNS: Stable. He is afebrile. He is awake and alert. CHEST: Clear. HEART: Regular. ABDOMEN: Benign. LABORATORY DATA: Sugars have been decent. Creatinine has decreased down to 1.5 this morning. Sodium is still elevated at 146 and potassium is 4.7. Renal input is appreciated. IMPRESSION: 1. Acute renal failure, improving. 2. Hyperkalemia, resolved. 3. Dehydration with elevated sodium, suggesting still a little bit dry. 4. Diabetes. PLAN: Continue present care. I expect discharge as early as tomorrow depending on Renal final plans and thoughts. SHELLIE WILLIS MD DR: NILDA/radha JOB#: [id number] / [id number]
[2018-12-21 11:00] VITALS: BP 139/45
--- NOTE | 2018-12-21 11:45 | PDOC ---
SUBJECTIVE ROS Stable, No complaints OBJECTIVE Vital Signs Vital Signs Date Time Temp Pulse Resp B/P (MAP) Pulse Ox O2 Delivery O2 Flow Rate FiO2 12/21/18 09:23 82 139/64 12/21/18 07:00 98.3 18 96 Room Air 98.3 I & 0 Intake and Output 12/21/18 07:00 Intake Total 120 ml Balance 120 ml Intake Oral 120 ml # Voids 9 # Bowel Movements 2 PHYSICAL EXAM Physical Exam GENERAL: NAD HEEN: Unremarkable, OM moist NECK: Supple CHEST: Clear to auscultation, Non labored breathing HEART: Regular rate and rhythm without S3, S4, or murmur. ABDOMEN: Soft, nontender, EXTREMITIES: Without cyanosis or clubbing, significant edema. NEUROLOGIC: Grossly Normal - No CVA or SP tenderness, No Hubbard Skin No Rash DIAGNOSIS/ASSESSMENT Assessment & Plan GOVIND- Dehydration due to Poor PO intake Creat peaked at 2.3 , Improved with IVF down to 1.5 Monitor , labs in am Hyperkalemia- K Normal this am Holding lisinopril Hypernatremia- Mild Sec to Dehydration, Encourage water intake CKD stage 3- Suspect Diab and HTN Nephrosclerosis Baseline Cr based on [facility] records 1.3-1.6 since 2012 DM- Primary managing HTN- On amlodipine and Lisinopril at Home 'Hold Lisinopril COMMENT/RELEVANT DATA Meds Current Medications Medications (Trade) Dose Ordered Sig/Karol Start Time Stop Time Status Last Admin Dose Admin Acetaminophen (Tylenol) 325 mg PRN Q4HRS PRN 12/20/18 09:00 Albuterol Sulfate (Ventolin Neb Soln) 2.5 mg PRN Q6HRS PRN 12/20/18 09:00 Amlodipine Besylate (Norvasc) 5 mg DAILY 12/20/18 10:00 12/21/18 09:23 5 MG Calcium/Vitamin D (Oscal D 500mg/ 200uts) 1 tab BIDWMEALS 12/20/18 10:00 12/21/18 09:19 1 TAB Cetirizine HCl (ZyrTEC) 10 mg DAILY 12/20/18 10:00 12/21/18 09:20 10 MG Dextrose (Dextrose 50%-Water Syringe) 12.5 gm PRN Q15MIN PRN 12/20/18 01:15 Docusate Sodium (Colace) 100 mg BID 12/20/18 10:00 12/20/18 21:15 100 MG Ferrous Sulfate (Feosol) 325 mg DAILY 12/20/18 10:00 12/21/18 09:20 325 MG Finasteride (Proscar) 5 mg HS 12/20/18 21:00 12/20/18 21:15 5 MG Fluticasone Propionate (Flonase) 2 spray DAILY 12/20/18 10:00 12/21/18 09:19 2 SPRAY Gabapentin (Neurontin) 100 mg TID 12/20/18 10:00 12/21/18 09:22 100 MG Insulin Glargine (Lantus) 25 units DAILY 12/20/18 10:00 12/20/18 09:40 25 UNITS Levothyroxine Sodium (Synthroid) 137 mcg DAILY07 12/20/18 10:00 12/21/18 05:20 137 MCG Linagliptin (Tradjenta) 5 mg DAILY 12/20/18 10:00 12/21/18 09:23 5 MG Multivitamins (Thera M Plus) 1 tab DAILY 12/20/18 10:00 12/21/18 09:23 1 TAB Non-Formulary Medication (Menthol (Biofreeze)) 118 ml QIDPRN PRN 12/20/18 09:00 UNV Nystatin (Nystop) 1 cameron 1X ONCE 12/20/18 02:00 12/20/18 02:01 DC 12/20/18 01:57 1 CAMERON Polyethylene Glycol (miraLAX PACKET) 17 gm DAILY 12/20/18 10:00 12/20/18 09:33 17 GM Rivaroxaban (Xarelto) 15 mg DAILYWSUP 12/20/18 17:00 12/20/18 17:14 15 MG Sodium Chloride 1,000 ml @ 125 mls/hr 1X ONCE 12/19/18 20:00 12/20/18 03:59 DC 12/19/18 20:34 125 MLS/HR Vitamin B Complex (Surinder B) 1 tab DAILY 12/20/18 10:00 12/21/18 09:22 1 TAB Vitamin D (Vitamin D3) 1,000 unit DAILY 12/20/18 10:00 12/21/18 09:20 1,000 UNIT Lab Laboratory Tests Test 12/20/18 16:45 12/20/18 20:08 12/21/18 06:20 12/21/18 07:24 Glucose (Fingerstick) 110 mg/dL (70-99) 144 mg/dL (70-99) 70 mg/dL (70-99) Sodium Level 146 mmol/L (136-145) Potassium Level 4.7 mmol/L (3.5-5.1) Chloride Level 111 mmol/L (98-107) Carbon Dioxide Level 23 mmol/L (21-32) Anion Gap 12 (6-14) Blood Urea Nitrogen 29 mg/dL (8-26) Creatinine 1.5 mg/dL (0.7-1.3) Estimated GFR (Cockcroft-Gault) 44.6 Glucose Level 70 mg/dL (70-99) Calcium Level 8.7 mg/dL (8.5-10.1) Results All relevant outside records, renal labs, imaging studies, telemetry/EKG's were reviewed. RUMA BADILLO MD Dec 21, 2018 11:45
[2018-12-21 15:00] VITALS: BP 130/95
--- NOTE | 2018-12-21 15:56 | NUR ---
Wound care: Patient seen per wound care consult. See wound assessment. Dressing removed and wound cleansed and assessed. Patient has DFU to right great toe. Recommendations for honey-alginate (left in room for next dressing change) to wound bed covered with Aquacel foam dressing. Dressing applied. Complete head to toe assessment completed and no other wounds noted. Patient has reddness/yeast/moisture to bilateral groin areas. Recommendations for Nystatin powder. Nystatin applied. Patient repositioned in bed and using wedge turned to left side. Dressing change instructions left in room. Call light in reach and bed lowered. Will follow patient regarding wound care.
[2018-12-21] MEDS: ANTI-COAG MONITOR BY PHARMACY. MC PRN (16:14)
[2018-12-21] MEDS: RIVAROXABAN 15 MG TABLET. PO SCH (17:17)
[2018-12-21 19:00] VITALS: BP 131/54
[2018-12-21] MEDS: FINASTERIDE 5 MG TABLET. PO SCH (22:46)
[2018-12-21 23:00] VITALS: BP 125/40
[2018-12-22 02:59] VITALS: BP 138/42
[2018-12-22] MEDS: LEVOTHYROXINE 137 MCG TABLET PO SCH (06:46)
[2018-12-22 07:15] VITALS: BP 153/59
[2018-12-22] MEDS: CALCIUM CARB/VIT D3 500/200 TABLET. PO SCH ×2 (08:21→16:29)
[2018-12-22] MEDS: FLUTICASONE 50MCG/NASAL SPRAY 16GM BOTTLE. NS SCH (08:22)
[2018-12-22] MEDS: DOCUSATE SODIUM 100 MG CAPSULE. PO SCH (08:23)
[2018-12-22] MEDS: VITAMIN B COMPLEX TABLET. PO SCH (08:24)
[2018-12-22] MEDS: FERROUS SULFATE 325 MG TABLET. PO SCH (08:24)
[2018-12-22] MEDS: POLYETHYLENE GLYCOL 3350 17 GM PACKET. PO SCH (08:25)
[2018-12-22] MEDS: GABAPENTIN 100 MG CAPSULE. PO SCH ×2 (08:25→13:42)
[2018-12-22] MEDS: amLODIPine BESYLATE 5 MG TABLET PO SCH (08:27)
[2018-12-22] MEDS: MULTIVITAMIN with MINERAL TABLET. PO SCH (08:28)
[2018-12-22] MEDS: LINAGLIPTIN 5 MG TABLET PO SCH (08:29)
[2018-12-22] MEDS: CHOLECALCIFEROL (VITAMIN D3) 1,000 UNIT TABLET PO SCH (08:30)
[2018-12-22] MEDS: CETIRIZINE HCL 10 MG TABLET. PO SCH (08:30)
[2018-12-22] MEDS: INSULIN GLARGINE 300 UNITS/3 ML INSULN.PEN. SQ SCH (08:32)
[2018-12-22] MEDS: NYSTATIN TOPICAL POWDER 15GM BOTTLE. TP SCH (08:34)
--- NOTE | 2018-12-22 08:56 | RAD ---
Indication: Great toe ulcer. Redness and warmth. TECHNIQUE: 3 views of the right foot COMPARISON: None FINDINGS: Hallux valgus deformity is seen. Diffuse osteopenia. No acute fractures. Focal osteopenia is seen in the distal phalanx of the great toe. Overlying soft tissue ulcer is seen. Vascular calcifications suggesting peripheral arterial disease. No soft tissue gas. IMPRESSION: Ulcer in the medial aspect of the distal great toe with focal osteopenia in the distal phalanx of the great toe. While this may be secondary to diffuse demineralization of the bones underlying osteomyelitis is not ruled out. No apparent cortical erosions are seen to suggest radiographic signs of advanced osteomyelitis. Further evaluation with MRI of the foot with IV contrast or triple phase bone scan may be of additional benefit. Electronically signed by: Toro Oakley DO (12/22/2018 8:53 AM) [facility]
--- NOTE | 2018-12-22 09:01 | PDOC ---
PROGRESS NOTES Subjective Subjective SEEN IN FOLLOW UP OF DEHYDRATION AND HYPERNATREMIA Objective Objective Vital Signs Date Time Temp Pulse Resp B/P (MAP) Pulse Ox O2 Delivery O2 Flow Rate FiO2 12/22/18 08:27 71 153/59 12/22/18 07:15 97.3 18 98 Room Air 97.3 Intake and Output 12/22/18 06:59 Intake Total 685 ml Balance 685 ml Intake Oral 685 ml # Voids 3 Physical Exam Abdomen: Normal bowel sounds, Soft, No tenderness, No hepatosplenomegaly, No masses Extremities: No clubbing, No cyanosis, No edema, Normal pulses, No tenderness/ swelling General: Cooperative Lungs: Clear to auscultation, Normal air movement Diagnosis RENAL FAILURE: Acute, Other (DEHYDRATION WITH HYPERNATREMIA) Assessment Assessment Problems Medical Problems: (1) Acute renal failure Status: Acute (2) Dehydration Status: Acute (3) Hyperkalemia Status: Acute Plan Plan of Care RENAL FUNCTION IS IMPROVING. NEED TO CONT TO ENCOURAGE INCREASED FREE WATER. Comment Review of Relevant I have reviewed the following items nesha (where applicable) has been applied. Labs Laboratory Tests Test 12/20/18 10:28 12/20/18 16:45 12/20/18 20:08 12/21/18 06:20 Glucose (Fingerstick) 137 mg/dL (70-99) 110 mg/dL (70-99) 144 mg/dL (70-99) Sodium Level 146 mmol/L (136-145) Potassium Level 4.7 mmol/L (3.5-5.1) Chloride Level 111 mmol/L (98-107) Carbon Dioxide Level 23 mmol/L (21-32) Anion Gap 12 (6-14) Blood Urea Nitrogen 29 mg/dL (8-26) Creatinine 1.5 mg/dL (0.7-1.3) Estimated GFR (Cockcroft-Gault) 44.6 Glucose Level 70 mg/dL (70-99) Calcium Level 8.7 mg/dL (8.5-10.1) Test 12/21/18 07:24 12/21/18 11:56 12/21/18 16:41 12/21/18 20:38 Glucose (Fingerstick) 70 mg/dL (70-99) 143 mg/dL (70-99) 203 mg/dL (70-99) 236 mg/dL (70-99) Test 12/22/18 07:06 Glucose (Fingerstick) 172 mg/dL (70-99) Laboratory Tests Test 12/21/18 11:56 12/21/18 16:41 12/21/18 20:38 12/22/18 07:06 Glucose (Fingerstick) 143 mg/dL (70-99) 203 mg/dL (70-99) 236 mg/dL (70-99) 172 mg/dL (70-99) Medications Current Medications Sodium Chloride 500 ml @ 500 mls/hr 1X ONCE IV Last administered on 20:33; Start 12/19/18 at 20:00; Stop 12/19/18 at 20:59; Status DC Sodium Chloride 1,000 ml @ 125 mls/hr 1X ONCE IV Last administered on 20:34; Start 12/19/18 at 20:00; Stop 12/20/18 at 03:59; Status DC Dextrose (Dextrose 50%-Water Syringe) 12.5 gm PRN Q15MIN PRN IV SEE COMMENTS; Start 12/20/18 at 01:15 Nystatin (Nystop) 1 cameron BID TP Last administered on 12/22/18 08:34; Start at 09:00 Nystatin (Nystop) 1 cameron 1X ONCE TP Last administered on 12/20/18 01:57; Start 12/20/18 at 02:00; Stop 12/20/18 at 02:01; Status DC Acetaminophen (Tylenol) 325 mg PRN Q4HRS PRN PO MODERATE PAIN; Start 12/20/18 at 09:00 Albuterol Sulfate (Ventolin Neb Soln) 2.5 mg PRN Q6HRS PRN NEB SHORTNESS OF BREATH; Start 12/20/18 at 09:00 Amlodipine Besylate (Norvasc) 5 mg DAILY PO Last administered on 12/22/18 08: 27; Start 12/20/18 at 10:00 Cetirizine HCl (ZyrTEC) 10 mg DAILY PO Last administered on 12/22/18 08:30; Start 12/20/18 at 10:00 Vitamin D (Vitamin D3) 1,000 unit DAILY PO Last administered on 12/22/18 08:30 ; Start 12/20/18 at 10:00 Docusate Sodium (Colace) 100 mg BID PO Last administered on 12/22/18 08:23; Start 12/20/18 at 10:00 Ferrous Sulfate (Feosol) 325 mg DAILY PO Last administered on 12/22/18 08:24; Start 12/20/18 at 10:00 Finasteride (Proscar) 5 mg HS PO Last administered on 12/21/18 22:46; Start at 21:00 Gabapentin (Neurontin) 100 mg TID PO Last administered on 12/22/18 08:25; Start 12/20/18 at 10:00 Levothyroxine Sodium (Synthroid) 137 mcg DAILY07 PO Last administered on 06:46; Start 12/20/18 at 10:00 Linagliptin (Tradjenta) 5 mg DAILY PO Last administered on 12/22/18 08:29; Start 12/20/18 at 10:00 Rivaroxaban (Xarelto) 15 mg DAILYWSUP PO Last administered on 12/21/18 17:17; Start 12/20/18 at 17:00 Vitamin B Complex (Surinder B) 1 tab DAILY PO Last administered on 12/22/18 08:24 ; Start 12/20/18 at 10:00 Calcium/Vitamin D (Oscal D 500mg/ 200uts) 1 tab BIDWMEALS PO Last administered on 12/22/18 08:21; Start 12/20/18 at 10:00 Fluticasone Propionate (Flonase) 2 spray DAILY NS Last administered on 08:22; Start 12/20/18 at 10:00 Insulin Glargine (Lantus) 8 units QHS SQ Last administered on 12/21/18 22:57; Start 12/20/18 at 21:00 Insulin Glargine (Lantus) 25 units DAILY SQ Last administered on 12/22/18 08: 32; Start 12/20/18 at 10:00 Non-Formulary Medication (Menthol (Biofreeze)) 118 ml QIDPRN PRN TP PAIN; Start 12/20/18 at 09:00; Status UNV Multivitamins (Thera M Plus) 1 tab DAILY PO Last administered on 3/21/19at 08: 28; Start 12/20/18 at 10:00 Polyethylene Glycol (miraLAX PACKET) 17 gm DAILY PO Last administered on at 08:25; Start 12/20/18 at 10:00 Info (Anti-Coagulation Monitoring By Pharmacy) 1 each PRN DAILY PRN MC SEE COMMENTS Last administered on 12/21/18at 16:14; Start 12/21/18 at 12:15 Active Scripts Active Reported Gabapentin (Gabapentin) 100 Mg Capsule 100 Mg PO TID Flonase Allergy Relief (Fluticasone Propionate) 9.9 Ml [place].susp 2 Sprays NS DAILY Biofreeze (Menthol) 118 Ml Gel..ml. 118 Ml TP QIDPRN PRN Tradjenta (Linagliptin) 5 Mg Tablet 5 Mg PO DAILY Lisinopril 10 Mg Tablet 1 Tab PO DAILY Zyrtec (Cetirizine Hcl) 10 Mg Tablet 1 Tab PO DAILY Xarelto (Rivaroxaban) 15 Mg Tablet 15 Mg PO DAILY Vitamin D3 (Cholecalciferol (Vitamin D3)) 1,000 Unit Tablet 1 Tab PO DAILY Levothyroxine Sodium 137 Mcg Tablet 1 Tab PO DAILY Levemir Flextouch (Insulin Detemir) 100 Unit/1 Ml Insuln.pen 25 Unit SQ AM Multi-Day Vitamins (Multivitamin) 1 Each Tablet 1 Tab PO DAILY Miralax (Polyethylene Glycol 3350) 17 Gm Powd.pack 1 Packet PO DAILY Levemir Flexpen (Insulin Detemir) 100 Unit/1 Ml Insuln.pen 8 Unit SQ HS Albuterol Sulfate Neb Soln (Albuterol Sulfate) 2.5 Mg/3 Ml Vial.neb 2.5 Mg IH Q6HRS PRN Acetaminophen 325 Mg Tablet 325 Mg PO Q4HRS PRN Finasteride 5 Mg Tablet 5 Mg PO HS Colace (Docusate Sodium) 100 Mg Capsule 100 Mg PO BID Calcium + Vitamin D Tablet (Calcium Carbonate/Vitamin D3) 1 Each Tablet 500,200 Each PO BID Ferrous Sulfate 325 Mg Tablet 325 Mg PO DAILY Amlodipine Besylate 5 Mg Tablet 5 Mg PO DAILY Vitamin D3 1,000 Unit Tablet (Ca Cmb No.1/Vit D3/B-6/Fa/B12) 1 Each Tablet 1 Each PO DAILY Vitals/I & O Vital Sign - Last 24 Hours 3/20/19 12/21/18 12/21/18 12/21/18 09:23 11:00 15:00 19:00 Temp 98.4 99.1 99.1 98.4 99.1 99.1 Pulse 82 83 79 84 Resp 18 18 20 B/P (MAP) 139/64 139/45 (76) 130/95 (107) 131/54 (79) Pulse Ox 99 97 95 O2 Delivery Room Air Room Air Room Air 12/21/18 12/21/18 12/22/18 12/22/18 20:00 23:00 02:59 07:15 Temp 97.9 98.3 97.3 97.9 98.3 97.3 Pulse 70 68 71 Resp 16 16 18 B/P (MAP) 125/40 (68) 138/42 (74) 153/59 (90) Pulse Ox 97 98 98 O2 Delivery Room Air Room Air Room Air Room Air 12/22/18 08:27 Pulse 71 B/P (MAP) 153/59 Intake and Output 12/21/18 12/21/18 12/22/18 14:59 22:59 06:59 Intake Total 325 ml 120 ml 240 ml Balance 325 ml 120 ml 240 ml SHANTHI SOTELO MD Dec 22, 2018 09:01
[2018-12-22 11:21] VITALS: BP 142/56
--- NOTE | 2018-12-22 13:40 | NUR ---
JHONATAN following. [facility] faxed updated clinicals to [facility]. Will continue to follow.
[2018-12-22] MEDS ORDERED: CEPH-264 PO (14:55)
[2018-12-22 14:58] VITALS: BP 139/60
--- NOTE | 2018-12-22 15:44 | NUR ---
JHONATAN following pt. JHONATAN phoned and faxed orders to [facility]. Pt will transport via facility arranged w/c van between [id number]. JHONATAN left a voice mail to pt's DPOA about plan. Packet on chart. MARIO DOUGLAS.
[2018-12-22] MEDS: RIVAROXABAN 15 MG TABLET. PO SCH (16:29)
[2018-12-22] MEDS: ANTI-COAG MONITOR BY PHARMACY. MC PRN (16:49)
--- NOTE | 2018-12-22 17:47 | PN ---
DATE: 12/22/2018 ROOM: 506. SUBJECTIVE: The patient is awake, alert, getting ready to eat breakfast. Denies any major complaints. OBJECTIVE: VITAL SIGNS: Stable. He is afebrile. Sugars have been decent. CHEST: Clear. HEART: Regular. ABDOMEN: Benign. EXTREMITIES: Right great toe has denuded skin medially and is red, consistent with some possible infection. We will get culture of the same. An x-ray has been obtained and is pending results at this point in time. IMPRESSION: 1. Acute renal failure, improving. 2. Hyperkalemia, resolved. 3. Dehydration, improved. 4. Diabetes. 5. Foot ulcer. PLAN: Culture and sensitivity. Plain films. Wound care help appreciated. Likely discharge in the morning if remains stable and can await cultures as an outpatient. SHELLIE WILLIS MD DR: NILDA/radha JOB#: [id number] / [id number]
--- NOTE | 2018-12-22 18:16 | NUR ---
Report called to receiving nurse Ny. Pt dismissed to [facility] per w/c van at 1615 with all belongings.Transfer orders sent with salesperson driver.
--- NOTE | 2018-12-22 23:22 | DS ---
DATE OF DISCHARGE: 12/22/2018 PRIMARY DIAGNOSIS: Dehydration. ADDITIONAL DIAGNOSES: Acute renal failure, hyperkalemia, diabetes, coronary artery disease, hypothyroidism, anemia of chronic disease, right toe ulcer and redness. CHIEF COMPLAINT AND HISTORY OF PRESENT ILLNESS: This 83-year-old [facility] patient was not acting quite right and eating and drinking very poorly for a couple of days, necessitating labs, where he was found to be dehydrated with acute renal failure and hyperkalemia, sent to the Emergency Room where he was admitted with the same. SUMMARY OF STAY: The patient was admitted, initially hydrated. There were no obvious signs of infection. He seemed to improve with IV fluids. After that point, he seemed to eat and drink well. His BUN and creatinine, which on admission were elevated at 46 and 2.3, decreased to 29 and 1.5, hyperkalemia at 5.9, corrected and came down the rest of the stay. His sodium did remain when the last couple times checked a little bit high in the 146 range, consistent with the dehydration. He was noted to have what appeared to be a slight abrasion on the medial side of his right great toe. The toe was somewhat reddened. He had plain films done of the toe showing an ulcer in the medial aspect of the distal great toe with focal osteopenia on the distal phalanx of the great toe while it was felt possibly to be secondary to decreased mineralization. Osteomyelitis was not ruled and an MRI was suggested. It was not able to be done in the hospital, will have to be rescheduled as an outpatient. The Wound Care saw him in consultation and recommended antibiotics at the time of discharge and will bring him back for MRI to rule out osteomyelitis as an outpatient, which will need to be scheduled. He was otherwise stable, felt he could be dismissed on the day of discharge and was accomplished. DISPOSITION: The patient is discharged back to the [facility]pc on ADA diet. ACTIVITY: As tolerated. Resume his regular [facility] meds plus Keflex 500 t.i.d. for the next 10 days. SHELLIE WILLIS MD DR: NILDA/radha JOB#: [id number] / [id number]
== END 2018-12-22 18:15 | disposition home or self-care (01) | DRG 682 ==
LOC: ER 16:28 → 5 NORTH 20:10
PROVIDERS: ADMIT Family Medicine; ATTEND Family Medicine
DX: N17.1 Acute kidney failure with acute cortical necrosis (principal); R65.11 Systemic inflammatory response syndrome (SIRS) of non-infectious origin with acute organ dysfunction; E87.0 Hyperosmolality and hypernatremia; E44.0 Moderate protein-calorie malnutrition; E86.0 Dehydration; E87.5 Hyperkalemia; N18.3 Chronic kidney disease, stage 3 (moderate); E10.22 Type 1 diabetes mellitus with diabetic chronic kidney disease; E10.621 Type 1 diabetes mellitus with foot ulcer; L97.509 Non-pressure chronic ulcer of other part of unspecified foot with unspecified severity; D63.8 Anemia in other chronic diseases classified elsewhere; I25.10 Atherosclerotic heart disease of native coronary artery without angina pectoris; E03.9 Hypothyroidism, unspecified; N40.0 Benign prostatic hyperplasia without lower urinary tract symptoms; Z96.649 Presence of unspecified artificial hip joint; Z89.432 Acquired absence of left foot; Z79.4 Long term (current) use of insulin; I12.9 Hypertensive chronic kidney disease with stage 1 through stage 4 chronic kidney disease, or unspecified chronic kidney disease
CPT/HCPCS: 36415; 73630; 80048; 80053; 82962; 83880; 84484; 85025; 85610; 87071; 87075; 87186; 87641; 93005; 96360; J1815; J7030; J7040; 99285-25

== ENCOUNTER 2019-06-21 11:17 | Emergency (ER) | payer MEDICARE, OTHER ==
[~2019-06-21] VITALS: Ht 190.5 cm; Wt 81.6 kg
[~2019-06-21 11:17] MED LIST changes: -BISA10SU2 RC; +BISA10SU4 RC; +CEPH-264 PO; +CETI10TA22 PO; +CHOL10003 PO; +FLUT9.9S NS; +GABA-585 PO; +INSU100I27 SQ; +LEVO137T3 PO; +LINA5TAB PO; +LISI10TA2 PO; +MENT118G TP; +RIVA15TA PO
--- NOTE | 2019-06-21 11:32 | PHYS DOC ---
Past Medical History Past Medical History: Anemia, CAD, Diabetes-Type II, GERD, Hypothyroid, Prostatitis, Renal Disease Additional Past Medical Histor: phabdomyolysis, anemia, fall, ulcer left foot, hypertrophy prostate, PVD Past Surgical History: Hip Replacement, Other Additional Past Surgical Histo: PARTIAL LEFT FOOT AMPUTATION Alcohol Use: None Drug Use: None Adult General Chief Complaint Chief Complaint: MECHANICAL FALL HPI HPI Patient is a 84 year old male resident of detention with history of frequent falls brought in by EMS because of a fall and laceration of the scalp. Patient had an unwitnessed fall in the bathroom of his room and was put on wheelchair by detention staff. Patient had laceration of his head and did not remember his fall. Patient is alert and oriented �2 and denies any pain. Patient had blood sugar of 401 reported by EMS. Review of Systems Review of Systems Constitutional: Denies fever or chills [] Eyes: Denies change in visual acuity, redness, or eye pain [] HENT: Denies nasal congestion or sore throat [] Respiratory: Denies cough or shortness of breath [] Cardiovascular: No additional information not addressed in HPI [] GI: Denies abdominal pain, nausea, vomiting, bloody stools or diarrhea [] : Denies dysuria or hematuria [] Musculoskeletal: Denies back pain or joint pain [] Integument: Denies rash or skin lesions [] Neurologic: Denies headache, focal weakness or sensory changes [] Endocrine: Denies polyuria or polydipsia [] All other systems were reviewed and found to be within normal limits, except as documented in this note. Current Medications Current Medications Current Medications Medications (Trade) Dose Ordered Sig/Karol Start Time Stop Time Status Last Admin Dose Admin Diphtheria/ Tetanus/Acell Pertussis (Boostrix) 0.5 ml ONCE ONCE 06/21/19 13:00 06/21/19 13:01 DC 06/21/19 13:23 0.5 ML Insulin Human Regular (HumuLIN R VIAL) 6 unit 1X ONCE 06/21/19 12:30 06/21/19 12:31 DC 06/21/19 13:23 6 UNIT Allergies Allergies Allergies Coded Allergies Type Severity Reaction Last Updated Verified No Known Drug Allergies 10/14/15 No Physical Exam Physical Exam Constitutional: Well nourished, mild distress, non-toxic appearance. [] HENT: Normocephalic, 2 cm laceration of occipital scalp Eyes: PERRLA, EOMI, conjunctiva normal, no discharge. [] Neck: Normal range of motion, no tenderness, supple, no stridor. [] Cardiovascular:Heart rate regular rhythm, no murmur [] Lungs & Thorax: Bilateral breath sounds clear to auscultation [] Abdomen: Bowel sounds normal, soft, no tenderness, no masses, no pulsatile masses. [] Skin: Warm, dry, no erythema, no rash. [] Back: No tenderness, no CVA tenderness. [] Extremities: No tenderness, no cyanosis, no clubbing, ROM intact, no edema. [] Neurologic: Alert and oriented X 2, no focal deficits noted. [] Psychologic: Affect normal, unable to obtain Current Patient Data Vital Signs Vital Signs Date Time Temp Pulse Resp B/P (MAP) Pulse Ox O2 Delivery O2 Flow Rate FiO2 06/21/19 11:17 98.2 71 16 188/83 (118) 96 Room Air 98.2 Lab Values Laboratory Tests Test 06/21/19 11:33 06/21/19 12:15 Glucose (Fingerstick) 312 mg/dL (70-99) H White Blood Count 7.0 x10^3/uL (4.0-11.0) Red Blood Count 3.33 x10^6/uL (4.30-5.70) L Hemoglobin 9.3 g/dL (13.0-17.5) L Hematocrit 28.7 % (39.0-53.0) L Mean Corpuscular Volume 86 fL (79-100) Mean Corpuscular Hemoglobin 28 pg (25-35) Mean Corpuscular Hemoglobin Concent 32 g/dL (31-37) Red Cell Distribution Width 14.8 % (11.5-14.5) H Platelet Count 202 x10^3/uL (140-400) Neutrophils (%) (Auto) 72 % (31-73) Lymphocytes (%) (Auto) 15 % (24-48) L Monocytes (%) (Auto) 11 % (0-9) H Eosinophils (%) (Auto) 1 % (0-3) Basophils (%) (Auto) 1 % (0-3) Neutrophils # (Auto) 5.0 x10^3/uL (1.8-7.7) Lymphocytes # (Auto) 1.1 x10^3/uL (1.0-4.8) Monocytes # (Auto) 0.8 x10^3/uL (0.0-1.1) Eosinophils # (Auto) 0.1 x10^3/uL (0.0-0.7) Basophils # (Auto) 0.0 x10^3/uL (0.0-0.2) Sodium Level 140 mmol/L (136-145) Potassium Level 5.2 mmol/L (3.5-5.1) H Chloride Level 106 mmol/L (98-107) Carbon Dioxide Level 28 mmol/L (21-32) Anion Gap 6 (6-14) Blood Urea Nitrogen 41 mg/dL (8-26) H Creatinine 1.9 mg/dL (0.7-1.3) H Estimated GFR (Cockcroft-Gault) 33.9 BUN/Creatinine Ratio 22 (6-20) H Glucose Level 340 mg/dL (70-99) H Calcium Level 8.5 mg/dL (8.5-10.1) Magnesium Level 1.8 mg/dL (1.8-2.4) Total Bilirubin 0.2 mg/dL (0.2-1.0) Aspartate Amino Transferase (AST) 12 U/L (15-37) L Alanine Aminotransferase (ALT) 9 U/L (16-63) L Alkaline Phosphatase 80 U/L (46-116) Creatine Kinase 71 U/L (39-308) Troponin I Quantitative < 0.017 ng/mL (0.000-0.055) TC-Wpf-W-Type Natriuretic Peptide 448 pg/mL (0-449) Total Protein 6.8 g/dL (6.4-8.2) Albumin 2.3 g/dL (3.4-5.0) L Albumin/Globulin Ratio 0.5 (1.0-1.7) L Laboratory Tests 06/21/19 12:15 Laboratory Tests 06/21/19 12:15 Radiology/Procedures Radiology/Procedures [][facility] [address] [place], [place] [id number] IMAGING REPORT Signed PATIENT: SATINDER DELACRUZ Nida ACCOUNT: [id number] : 1935 LOCATION: ER AGE: 84 SEX: M EXAM STATUS: PRE ER ORD. PHYSICIAN: RAIMUNDO AYALA MD REASON: fall - PROCEDURE: PORTABLE CHEST 1V PORTABLE CHEST 1V History: Fall. Pain. Comparison: October 13, 2013 Findings: No consolidation or pleural effusion. Normal heart size. No pneumothorax. Peripherally calcified lesions within the left upper quadrant, unchanged compared to prior. Bilateral glenohumeral DJD. Impression: 1. No acute cardiopulmonary process. Electronically signed by: Neeraj Handley DO (06/21/2019 12:34 PM) [id number] DICTATED and SIGNED BY: NEERAJ HANDLEY DO DATE: 06/21/19 1234 [facility] [address] [place] [address] IMAGING REPORT Signed PATIENT: SATINDER DELACRUZ ACCOUNT: [id number] : 1935 LOCATION: ER AGE: 84 SEX: M EXAM STATUS: PRE ER ORD. PHYSICIAN: RAIMUNDO AYALA MD REASON: fall PROCEDURE: CT HEAD AND CERVICAL SPINE WO CT head and cervical spine without contrast History: Fall Technique: Noncontrast CT imaging was performed of the head and cervical spine. Multiplanar reconstruction images are submitted. Exposure: One or more of the following individualized dose reduction techniques were utilized for this examination: 1. Automated exposure control 2. Adjustment of the mA and/or kV according to patient size 3. Use of iterative reconstruction technique. Head CT Comparison: 07/31/2018 Findings: There is no evidence of acute intracranial hemorrhage. There is [id number] generalized supratentorial atrophy, ventricular size proportionate to the sulcal spaces. There is again fairly severe ill-defined low-density of the supratentorial parenchyma bilaterally. There is no new intra-axial mass effect or midline shift. No acute calvarial abnormality is identified. Visualized paranasal sinuses and mastoid air cells are aerated. Impression: 1. There is no evidence of acute intracranial hemorrhage. 2. There is generalized supratentorial atrophy. Multifocal low-density of the supratentorial parenchyma is probably due to to chronic microvascular ischemic disease. Cervical spine CT Comparison: July 31, 2018 Findings: No acute cervical spine fracture is identified. 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 Vertebral body stature and AP alignment are within normal limits. Atlanto-axial distance is within normal limits. There is appropriate alignment of lateral masses of C1 relative to C2. Occipital condylar-C1 relationship is maintained. There is again advanced degenerative disc disease C4-5 through C6-7. There are large anterolateral osteophytes greatest C2-C5 6 with variable fusion. There is multilevel cervical spondylosis greatest C4-5 to C6-7 and to lesser degree at C3-C4. Central canal is likely narrowed to about 8 to 9 mm at C6-7 and C5-6 and to lesser degree at C4-C5. There is multilevel facet and uncovertebral degenerative change contributing to multilevel cervical neural foramina compromise, more significant narrowing bilaterally at C5-6 and C6-7, to lesser degree at C4-C5. There is some fusion of the left C2-3 facet articulation. There is atherosclerotic calcification of the carotid arteries in the neck bilaterally. There is mild cervical dextroscoliosis. Impression: 1. 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 2. There is multilevel cervical degenerative disc disease and spondylosis, likely mild spinal stenosis greatest C5-6 and C6-7. 3. There is multilevel facet and uncovertebral degenerative change contributing to multilevel cervical neural foramina compromise. Electronically signed by: Shellie Aguirre MD (06/21/2019 12:27 PM) [facility] DICTATED and SIGNED BY: SHELLIE AGUIRRE MD DATE: 06/21/19 1227 [facility] [address] [place] [address] IMAGING REPORT Signed PATIENT: SATINDER DELACRUZ ACCOUNT: [id number] : 1935 LOCATION: ER AGE: 84 SEX: M EXAM STATUS: PRE ER ORD. PHYSICIAN: RAIMUNDO AYALA MD REASON: fall PROCEDURE: PELVIS PELVIS History: Trauma. Pain. Technique: AP view the pelvis. Comparison: July 23, 2018. Findings: Left hip arthroplasty. Unchanged alignment. Unchanged heterotopic ossification projecting medial to the left hip. Normal AP alignment of the hips. No fracture. Extensive vascular calcifications. Mild right hip degenerative changes. Lower lumbar spondylosis. Impression: 1. No acute osseous abnormality. 2. Left hip arthroplasty. 3. Mild right hip DJD. Electronically signed by: Neeraj Handley DO (06/21/2019 12:37 PM) [id number] DICTATED and SIGNED BY: NEERAJ HANDLEY DO DATE: 06/21/19 1237 Course & Med Decision Making Course & Med Decision Making Pertinent Labs and Imaging studies reviewed. (See chart for details) Evaluation of patient in ER showed 84-year-old male patient with a fall at detention brought in because of a fall and scalp laceration. Laceration was repaired with Dermabond because it was in hairless part of head. Patient had blood sugar of 340 and treated with insulin with improvement of blood sugar to 226. Plan discharge patient home to detention with instruction for prevention of fall. Dragon Disclaimer Dragon Disclaimer This electronic medical record was generated, in whole or in part, using a voice recognition dictation system. Departure Departure Impression: Primary Impression: Fall at detention Additional Impressions: Scalp laceration Hyperglycemia Chronic renal insufficiency Dementia Disposition: 01 HOME, SELF-CARE (to detention at 1400) Condition: IMPROVED Referrals: SHELLIE WILLIS MD (PCP) Patient Instructions: Fall Prevention and Home Safety, Hyperglycemia, Tissue Adhesive Wound Care Additional Instructions: keep wound clean and dry Follow-up with your primary care physician in 3-5 days Return to ER if not getting better Laceration Repair Lac Repair Indication: Scalp laceration Procedure: The patient was placed in the appropriate position and 2 cm linear laceration of occipital scalp was repaired with Dermabond. Total repaired wound length: 2 cm Other Items: None The patient tolerated the procedure well . Complications: None. Problem Qualifiers Primary Impression: Fall at detention Encounter type: initial encounter Qualified Codes: W19.XXXA - Unspecified fall, initial encounter; Y92.129 - Unspecified place in detention as the place of occurrence of the external cause Additional Impressions: Scalp laceration Encounter type: subsequent encounter Qualified Codes: S01.01XD - Laceration without foreign body of scalp, subsequent encounter Chronic renal insufficiency Chronic kidney disease stage: unspecified stage Qualified Codes: N18.9 - Chronic kidney disease, unspecified Dementia Dementia type: associated with other underlying disease Dementia behavioral disturbance: without behavioral disturbance Qualified Codes: F02.80 - Dementia in other diseases classified elsewhere without behavioral disturbance RAIMUNDO AYALA MD Jun 21, 2019 11:32
[2019-06-21 12:29] LABS: BASO % 1 % (0-3); EOS # 0.1 x10^3/uL (0.0-0.7); EOS % 1 % (0-3); HEMATOCRIT 28.7 % (39.0-53.0); HEMOGLOBIN 9.3 g/dL (13.0-17.5); LYMPH # 1.1 x10^3/uL (1.0-4.8); LYMPH % 15 % (24-48); MEAN CORPUSCULAR HEMOGLOBIN 28 pg (25-35); MEAN CORPUSCULAR HGB CONC 32 g/dL (31-37); MEAN CORPUSCULAR VOLUME 86 fL (79-100); MONO # 0.8 x10^3/uL (0.0-1.1); MONO % 11 % (0-9); NEUT % 72 % (31-73); PLATELET COUNT 202 x10^3/uL (140-400); RED BLOOD COUNT 3.33 x10^6/uL (4.30-5.70); RED CELL DISTRIBUTION WIDTH 14.8 % (11.5-14.5)
[2019-06-21] MEDS ORDERED: INSULIN REGULAR 100 UNIT/ML 3ML VIAL. IV ONE (12:30)
--- NOTE | 2019-06-21 12:30 | RAD ---
CT head and cervical spine without contrast History: Fall Technique: Noncontrast CT imaging was performed of the head and cervical spine. Multiplanar reconstruction images are submitted. Exposure: One or more of the following individualized dose reduction techniques were utilized for this examination: 1. Automated exposure control 2. Adjustment of the mA and/or kV according to patient size 3. Use of iterative reconstruction technique. Head CT Comparison: 07/31/2018 Findings: There is no evidence of acute intracranial hemorrhage. There is [id number] generalized supratentorial atrophy, ventricular size proportionate to the sulcal spaces. There is again fairly severe ill-defined low-density of the supratentorial parenchyma bilaterally. There is no new intra-axial mass effect or midline shift. No acute calvarial abnormality is identified. Visualized paranasal sinuses and mastoid air cells are aerated. Impression: 1. There is no evidence of acute intracranial hemorrhage. 2. There is generalized supratentorial atrophy. Multifocal low-density of the supratentorial parenchyma is probably due to to chronic microvascular ischemic disease. Cervical spine CT Comparison: July 31, 2018 Findings: No acute cervical spine fracture is identified. 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 Vertebral body stature and AP alignment are within normal limits. Atlanto-axial distance is within normal limits. There is appropriate alignment of lateral masses of C1 relative to C2. Occipital condylar-C1 relationship is maintained. There is again advanced degenerative disc disease C4-5 through C6-7. There are large anterolateral osteophytes greatest C2-C5 6 with variable fusion. There is multilevel cervical spondylosis greatest C4-5 to C6-7 and to lesser degree at C3-C4. Central canal is likely narrowed to about 8 to 9 mm at C6-7 and C5-6 and to lesser degree at C4-C5. There is multilevel facet and uncovertebral degenerative change contributing to multilevel cervical neural foramina compromise, more significant narrowing bilaterally at C5-6 and C6-7, to lesser degree at C4-C5. There is some fusion of the left C2-3 facet articulation. There is atherosclerotic calcification of the carotid arteries in the neck bilaterally. There is mild cervical dextroscoliosis. Impression: 1. 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 2. There is multilevel cervical degenerative disc disease and spondylosis, likely mild spinal stenosis greatest C5-6 and C6-7. 3. There is multilevel facet and uncovertebral degenerative change contributing to multilevel cervical neural foramina compromise. Electronically signed by: Robert Aguirre MD (06/21/2019 12:27 PM) [id number]
--- NOTE | 2019-06-21 12:37 | RAD ---
PORTABLE CHEST 1V History: Fall. Pain. Comparison: October 13, 2013 Findings: No consolidation or pleural effusion. Normal heart size. No pneumothorax. Peripherally calcified lesions within the left upper quadrant, unchanged compared to prior. Bilateral glenohumeral DJD. Impression: 1. No acute cardiopulmonary process. Electronically signed by: Neeraj Handley DO (06/21/2019 12:34 PM) [id number]
--- NOTE | 2019-06-21 12:40 | RAD ---
PELVIS History: Trauma. Pain. Technique: AP view the pelvis. Comparison: July 23, 2018. Findings: Left hip arthroplasty. Unchanged alignment. Unchanged heterotopic ossification projecting medial to the left hip. Normal AP alignment of the hips. No fracture. Extensive vascular calcifications. Mild right hip degenerative changes. Lower lumbar spondylosis. Impression: 1. No acute osseous abnormality. 2. Left hip arthroplasty. 3. Mild right hip DJD. Electronically signed by: Neeraj Handley DO (06/21/2019 12:37 PM) [id number]
[2019-06-21 12:42] LABS: CALCIUM 8.5 mg/dL (8.5-10.1); CREATININE 1.9 mg/dL (0.7-1.3); GFR 33.9; POTASSIUM 5.2 mmol/L (3.5-5.1)
[2019-06-21 12:49] LABS: ALBUMIN 2.3 g/dL (3.4-5.0); ALBUMIN/GLOBULIN RATIO 0.5 (1.0-1.7); MAGNESIUM 1.8 mg/dL (1.8-2.4); TOTAL BILIRUBIN 0.2 mg/dL (0.2-1.0); TOTAL PROTEIN 6.8 g/dL (6.4-8.2)
[2019-06-21] MEDS ORDERED: DIPHTH,PERTUSS(ACELL),TET TOX 0.5 ML DISP.SYRIN. VAX IM ONE (13:00)
[2019-06-21 14:24] VITALS: BP 141/65
== END 2019-06-21 14:49 | disposition home or self-care (01) ==
LOC: ER 11:17
DX: S01.01XA Laceration without foreign body of scalp, initial encounter (principal); I25.10 Atherosclerotic heart disease of native coronary artery without angina pectoris; K21.9 Gastro-esophageal reflux disease without esophagitis; E03.9 Hypothyroidism, unspecified; E11.65 Type 2 diabetes mellitus with hyperglycemia; E11.22 Type 2 diabetes mellitus with diabetic chronic kidney disease; N18.9 Chronic kidney disease, unspecified; Z96.649 Presence of unspecified artificial hip joint; Z89.432 Acquired absence of left foot; W18.39XA Other fall on same level, initial encounter; Y93.89 Activity, other specified; Y92.121 Bathroom in nursing home as the place of occurrence of the external cause; Y99.8 Other external cause status
CPT/HCPCS: 12001; 36415; 70450; 71045; 72125; 72170; 80053; 82550; 82962; 83735; 83880; 84484; 85025; 90471; 90715; 96374; 99285; J1815

== ENCOUNTER 2019-07-05 19:04 | Inpatient (IN) | payer MEDICARE, OTHER ==
[~2019-07-05] VITALS: Ht 182.9 cm; Wt 87.1 kg
--- NOTE | 2019-07-05 19:46 | PHYS DOC ---
Past Medical History Past Medical History: Anemia, CAD, Diabetes-Type II, GERD, Hypothyroid, Prostatitis, Renal Disease Additional Past Medical Histor: phabdomyolysis, anemia, fall, ulcer left foot, hypertrophy prostate, PVD Past Surgical History: Hip Replacement, Other Additional Past Surgical Histo: PARTIAL LEFT FOOT AMPUTATION Alcohol Use: None Drug Use: None Adult General Chief Complaint Chief Complaint: BEDSORES HPI HPI 84-year-old male from nursing facility presents to the emergency department for ulcer evaluation. Patient apparently lives at [facility], wound care call today with concerns for left heel ulceration with cellulitis, as well as right foot ulcerations. Patient is supposed to be admitted to Dr. Brooks. He has a status post left transmetatarsal amputation, left heel ulceration 5 x 5 cm with necrotic tissue, left groin with yeast and ulceration, right foot with lateral aspect 2 x 2 centimeter ulceration and a 1 x 1 cm ulceration to the lateral m alleolus. Patient points of pain to his feet. Patient denies any chest pain, shortness breath, nausea, vomiting, headache, visual change, abdominal pain. Nothing makes his pain worse or better. Review of Systems Review of Systems Constitutional: Denies fever or chills [] Respiratory: Denies cough or shortness of breath [] Cardiovascular: No additional information not addressed in HPI [] GI: Denies abdominal pain, nausea, vomiting, bloody stools or diarrhea [] Musculoskeletal: pain to bilateral lower ext Neurologic: Denies headache, focal weakness or sensory changes [] All other systems were reviewed and found to be within normal limits, except as documented in this note. Current Medications Current Medications Current Medications Medications (Trade) Dose Ordered Sig/[facility] Start Time Stop Time Status Last Admin Dose Admin Cefepime HCl (Maxipime) 2 gm 1X ONCE 07/05/19 20:00 07/05/19 20:01 DC 07/05/19 20:01 2 GM Vancomycin HCl (Vanco Per Pharmacy) 1 each 1X ONCE 07/05/19 20:00 07/05/19 20:15 DC Vancomycin HCl 1.5 gm/Sodium Chloride 500 ml @ 250 mls/hr 1X ONCE 07/05/19 20:30 07/05/19 22:29 07/05/19 20:31 250 MLS/HR Allergies Allergies Allergies Coded Allergies Type Severity Reaction Last Updated Verified No Known Drug Allergies 1/11/16 No Physical Exam Physical Exam Constitutional: Well developed, well nourished, no acute distress, non-toxic appearance. [] HENT: Normocephalic, atraumatic, bilateral external ears normal, oropharynx moist, no oral exudates, nose normal. [] Eyes: PERRLA, EOMI, conjunctiva normal, no discharge. [] Cardiovascular:Heart rate regular rhythm, no murmur [] Lungs & Thorax: Bilateral breath sounds clear to auscultation [] Abdomen: Bowel sounds normal, soft, no tenderness, no masses, no pulsatile masses. [] Skin: Warm, dry, no erythema, no rash. [] Extremities: Ulceration left heel 5cm by 5 cm, left groin with yeast and ulcer, right foot with 1 x 1 cm lateral malleolus ulcer as well as right lateral 5th metatarsal 2 x 2 cm ulceration. cellulitic changes to left foot [] Neurologic: Alert and oriented X 3, no focal deficits noted. [] Psychologic: Affect normal, judgement normal, mood normal. [] Current Patient Data Vital Signs Vital Signs Date Time Temp Pulse Resp B/P (MAP) Pulse Ox O2 Delivery O2 Flow Rate FiO2 07/05/19 19:36 98.8 88 18 172/75 (107) 97 Room Air 98.8 Lab Values Laboratory Tests Test 07/05/19 19:22 White Blood Count 8.0 x10^3/uL (4.0-11.0) Red Blood Count 3.30 x10^6/uL (4.30-5.70) L Hemoglobin 9.3 g/dL (13.0-17.5) L Hematocrit 28.3 % (39.0-53.0) L Mean Corpuscular Volume 86 fL (79-100) Mean Corpuscular Hemoglobin 28 pg (25-35) Mean Corpuscular Hemoglobin Concent 33 g/dL (31-37) Red Cell Distribution Width 14.3 % (11.5-14.5) Platelet Count 339 x10^3/uL (140-400) Neutrophils (%) (Auto) 66 % (31-73) Lymphocytes (%) (Auto) 19 % (24-48) L Monocytes (%) (Auto) 11 % (0-9) H Eosinophils (%) (Auto) 4 % (0-3) H Basophils (%) (Auto) 1 % (0-3) Neutrophils # (Auto) 5.3 x10^3/uL (1.8-7.7) Lymphocytes # (Auto) 1.5 x10^3/uL (1.0-4.8) Monocytes # (Auto) 0.9 x10^3/uL (0.0-1.1) Eosinophils # (Auto) 0.3 x10^3/uL (0.0-0.7) Basophils # (Auto) 0.0 x10^3/uL (0.0-0.2) Urine Collection Type U cath Urine Color Yellow Urine Clarity Cloudy Urine pH 5.5 Urine Specific [place] 1.015 Urine Protein 100 mg/dL (NEG-TRACE) Urine Glucose (UA) Negative mg/dL (NEG) Urine Ketones (Stick) Negative mg/dL (NEG) Urine Blood Small (NEG) Urine Nitrite Negative (NEG) Urine Bilirubin Negative (NEG) Urine Urobilinogen Dipstick 0.2 mg/dL (0.2 mg/dL) Urine Leukocyte Esterase Large (NEG) Urine RBC 20-40 /HPF (0-2) Urine WBC Tntc /HPF (0-4) Urine Squamous Epithelial Cells Occ /LPF Urine Bacteria Many /HPF (0-FEW) Sodium Level 140 mmol/L (136-145) Potassium Level 4.8 mmol/L (3.5-5.1) Chloride Level 104 mmol/L (98-107) Carbon Dioxide Level 27 mmol/L (21-32) Anion Gap 9 (6-14) Blood Urea Nitrogen 37 mg/dL (8-26) H Creatinine 2.0 mg/dL (0.7-1.3) H Estimated GFR (Cockcroft-Gault) 31.9 BUN/Creatinine Ratio 19 (6-20) Glucose Level 215 mg/dL (70-99) H Lactic Acid Level 1.8 mmol/L (0.4-2.0) Calcium Level 8.7 mg/dL (8.5-10.1) Total Bilirubin 0.2 mg/dL (0.2-1.0) Aspartate Amino Transferase (AST) 45 U/L (15-37) H Alanine Aminotransferase (ALT) 19 U/L (16-63) Alkaline Phosphatase 78 U/L (46-116) Total Protein 7.1 g/dL (6.4-8.2) Albumin 2.0 g/dL (3.4-5.0) L Albumin/Globulin Ratio 0.4 (1.0-1.7) L Procalcitonin < 0.10 ng/mL (0.00-0.10) Laboratory Tests 07/05/19 19:22 Laboratory Tests 07/05/19 19:22 EKG EKG [] Radiology/Procedures Radiology/Procedures [] Course & Med Decision Making Course & Med Decision Making Pertinent Labs and Imaging studies reviewed. (See chart for details) []84-year-old male from nursing facility presents to the emergency department for ulcer evaluation. Patient apparently lives at [facility], wound care call today with concerns for left heel ulceration with cellulitis, as well as right foot ulcerations. Patient is supposed to be admitted to Dr. Brooks. He has a status post left transmetatarsal amputation, left heel ulceration 5 x 5 cm with necrotic tissue, left groin with yeast and ulceration, right foot with lateral aspect 2 x 2 centimeter ulceration and a 1 x 1 cm ulceration to the lateral malleolus. Patient points of pain to his feet. Patient denies any chest pain, shortness breath, nausea, vomiting, headache, visual change, abdominal pain. Nothing makes his pain worse or better. Labs and imaging reviewed. Creat 2.0, chronic kidney disease noted. Lactic acid 1.8, pro-calcitonin less than 0.10. 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 We'll plan doses of vancomycin, meropenem 1 g IV every 12 hours with cultures of left heel. MRI for tomorrow as well as vascular consultation. Case discussed with Dr. Brooks. Deven Disclaimer Deven Disclaimer This electronic medical record was generated, in whole or in part, using a voice recognition dictation system. Departure Departure Impression: Primary Impression: Diabetic foot ulcer Additional Impression: Cellulitis in diabetic foot Disposition: ADMITTED INPATIENT Admitting Physician: Rome Brooks Condition: STABLE Referrals: SHELLIE WILLIS MD (PCP) Problem Qualifiers Primary Impression: Diabetic foot ulcer Diabetic foot ulcer location: heel Diabetes mellitus type: type 2 Laterality: left Non-pressure ulcer stage: with fat layer exposed Qualified Codes: E11.621 - Type 2 diabetes mellitus with foot ulcer; L97.422 - Non-pressure chronic ulcer of left heel and midfoot with fat layer exposed MONIQUE RIVERA MD Jul 05, 2019 19:46
[2019-07-05 19:59] LABS: BASO % 1 % (0-3); EOS # 0.3 x10^3/uL (0.0-0.7); EOS % 4 % (0-3); HEMATOCRIT 28.3 % (39.0-53.0); HEMOGLOBIN 9.3 g/dL (13.0-17.5); LYMPH # 1.5 x10^3/uL (1.0-4.8); LYMPH % 19 % (24-48); MEAN CORPUSCULAR HEMOGLOBIN 28 pg (25-35); MEAN CORPUSCULAR HGB CONC 33 g/dL (31-37); MEAN CORPUSCULAR VOLUME 86 fL (79-100); MONO # 0.9 x10^3/uL (0.0-1.1); MONO % 11 % (0-9); NEUT # 5.3 x10^3/uL (1.8-7.7); NEUT % 66 % (31-73); PLATELET COUNT 339 x10^3/uL (140-400); RED CELL DISTRIBUTION WIDTH 14.3 % (11.5-14.5)
[2019-07-05 20:00] LABS: BILIRUBIN,URINE NEGATIVE (NEG); CLARITY,URINE CLOUDY; COLOR,URINE YELLOW; NITRITE,URINE NEGATIVE (NEG); PH,URINE 5.5; PROTEIN,URINE 100 mg/dL (NEG-TRACE); UROBILINOGEN,URINE 0.2 mg/dL (0.2 mg/dL)
[2019-07-05] MEDS ORDERED: CEFEPIME HCL IV Push 2 GM VIAL. IVP ONE ×2 (20:00)
[2019-07-05] MEDS ORDERED: VANCOMYCIN PER PHARMACY MC ONE (20:00)
[2019-07-05 20:09] LABS: CALCIUM 8.7 mg/dL (8.5-10.1); GFR 31.9; POTASSIUM 4.8 mmol/L (3.5-5.1)
[2019-07-05 20:10] LABS: BACTERIA,URINE MANY /HPF (0-FEW); RBC,URINE 20-40 /HPF (0-2); SQUAMOUS EPITHELIAL CELL,UR OCC /LPF; WBC,URINE TNTC /HPF (0-4)
[2019-07-05 20:15] LABS: ALBUMIN/GLOBULIN RATIO 0.4 (1.0-1.7); TOTAL BILIRUBIN 0.2 mg/dL (0.2-1.0); TOTAL PROTEIN 7.1 g/dL (6.4-8.2)
--- NOTE | 2019-07-05 20:22 | RAD ---
PORTABLE CHEST 1V Clinical History: Sepsis Technique: AP view of the chest was obtained at 07/05/2019 7:46 PM. Comparison: June 21, 2019. Findings: The cardiomediastinal silhouette is normal. The pulmonary vasculature is normal. A few linear opacities in left lung base are likely discoid atelectasis. Impression: No evidence of an acute cardiopulmonary process. Electronically signed by: Marcell Alfred III, MD (07/05/2019 8:19 PM) [id number]
[2019-07-05] MEDS ORDERED: VANCOMYCIN 1.5 GM in IV NORMAL SALINE 500ML BAG 500 ML IV ONE (20:30)
[2019-07-05] MEDS ORDERED: ONDANSETRON PF 4 MG/2 ML VIAL. IV PRN (21:15)
[2019-07-05] MEDS: VANCOMYCIN PER PHARMACY MC PRN ×2 (22:19→22:26)
--- NOTE | 2019-07-05 22:23 | NUR ---
Pharmacy Vancomycin Dosing Note S:Consulted to monitor and dose vancomycin started 07/05/19. O:SATINDER DELACRUZ is a 84 year old M with Cellulitis DIABETIC FOOT ULCER . Height: 6 feet, 0 inches Weight: 81.069323 kg [place] Body Weight: 77.60 Adjusted Body Weight: 79.20 Dosing Weight: Actual Other Antibiotics: MEROPENEM 1GM IV Q12H LABS: Last BUN: 37 Last Creatinine: 2.0 Creatinine Clearance: 30 mL/min Last WBC: 8.0 Last Procalcitonin: <0.10 Tmax (past 24 hours): Microbiology: I/O: Drug Levels: Last level: on at Last dose given at Vancomycin Dosing: Loading Dose: 1500 mg x1 07/05/192030 Dosing Weight: Actual Target Trough: 10-20 A: Based on: Actual Wt and CrCl P: 1. 07/06/192029 Vancomycin 1250 mg IV q24h 2. Follow up level on 07/07/19 at 2000 3. Pharmacy will continue to monitor, follow and adjust therapy as needed. SUMA SONG RPH, 07/05/192222 Signed: 07/05/19 at 2225 by SUMA SONG RPH PHA
[2019-07-05 23:00] VITALS: BP 168/76
[2019-07-06] MEDS ORDERED: NON FORMULARY ITEM (Menthol (Biofreeze) 118 ML) TP PRN (00:15)
[2019-07-06] MEDS ORDERED: ALBUTEROL SULFATE 2.5 MG/3 ML NEBU. NEB PRN (00:15)
--- NOTE | 2019-07-06 00:30 | NUR ---
ADMIT NOTE The patient, SATINDER DELACRUZ, 84 y/o, M admitted by SATINDER KAT MD, was given written information regarding hospital policies, unit procedures and contact persons. Report received from MISAEL Lugo and patient arrived via gurney. Patient is A&O to self, afebrile, and VSS upon admission. Patient orientated to room, admit packet reviewed, plan of care discussed, and admission assessment complete. Patient's wounds photographed, CHG bath done, and NOZIN swab complete. Patient in bed and call light within reach, will continue to monitor.
[2019-07-06] MEDS ORDERED: DIVA125C2 PO (00:43)
[2019-07-06] MEDS ORDERED: CITA20TA6 PO (00:43)
[2019-07-06] MEDS ORDERED: NYST15PO9 TP (00:43)
[2019-07-06] MEDS ORDERED: LACT1CAP21 PO (00:43)
[2019-07-06] MEDS ORDERED: MIRT15TA3 PO (00:43)
[2019-07-06] MEDS ORDERED: RISP0.5T24 PO (00:43)
[2019-07-06] MEDS ORDERED: NITR0.4T22 SL (00:43)
[2019-07-06] MEDS ORDERED: CYAN10002 IM (00:43)
[2019-07-06] MEDS ORDERED: INSU100V13 SQ (00:43)
[2019-07-06] MEDS ORDERED: ACET325T9 PO ×2 (00:43)
[2019-07-06] MEDS ORDERED: ACETAMINOPHEN 325 MG TABLET. PO PRN ×2 (01:15→04:00)
[2019-07-06] MEDS ORDERED: NITROGLYCERIN SUBLINGUAL 0.4 MG BOTTLE OF 25. SL PRN (01:15)
[2019-07-06] MEDS ORDERED: GABA-585 PO (01:29)
[2019-07-06] MEDS ORDERED: MENT118G TP (01:29)
[2019-07-06] MEDS ORDERED: FLUT16SP NS (01:29)
[2019-07-06] MEDS ORDERED: CHOL10003 PO (01:29)
[2019-07-06] MEDS ORDERED: CETI10TA16 PO (01:29)
[2019-07-06] MEDS ORDERED: ALBU2.5V5 NEB (01:29)
[2019-07-06] MEDS ORDERED: LEVO137T3 PO (01:29)
[2019-07-06] MEDS ORDERED: DOCU100C28 PO (01:29)
[2019-07-06] MEDS ORDERED: FINA5TAB4 PO (01:29)
[2019-07-06] MEDS ORDERED: FERR325T14 PO (01:29)
[2019-07-06] MEDS ORDERED: CALC-98 PO (01:29)
[2019-07-06] MEDS ORDERED: LINA5TAB PO (01:29)
[2019-07-06] MEDS ORDERED: MULT1TAB52 PO (01:29)
[2019-07-06 03:39] VITALS: BP 150/58
[2019-07-06] MEDS ORDERED: GABAPENTIN 100 MG CAPSULE. PO PRN (04:00)
[2019-07-06] MEDS: ALBUTEROL SULFATE 2.5 MG/3 ML NEBU. NEB SCH ×3 (06:00→18:00)
[2019-07-06] MEDS ORDERED: NON FORMULARY ITEM (Menthol (Biofreeze) 118 ML) TP SCH (06:00)
[2019-07-06] MEDS: LEVOTHYROXINE 137 MCG TABLET PO SCH (06:22)
[2019-07-06 07:00] VITALS: BP 135/50
[2019-07-06 07:10] LABS: BASO % 1 % (0-3); EOS # 0.2 x10^3/uL (0.0-0.7); EOS % 3 % (0-3); HEMATOCRIT 25.1 % (39.0-53.0); HEMOGLOBIN 8.3 g/dL (13.0-17.5); LYMPH % 16 % (24-48); MEAN CORPUSCULAR HEMOGLOBIN 28 pg (25-35); MEAN CORPUSCULAR HGB CONC 33 g/dL (31-37); MEAN CORPUSCULAR VOLUME 85 fL (79-100); MONO # 0.8 x10^3/uL (0.0-1.1); MONO % 13 % (0-9); NEUT # 4.5 x10^3/uL (1.8-7.7); NEUT % 68 % (31-73); PLATELET COUNT 277 x10^3/uL (140-400); RED BLOOD COUNT 2.95 x10^6/uL (4.30-5.70); RED CELL DISTRIBUTION WIDTH 14.4 % (11.5-14.5); WHITE BLOOD COUNT 6.6 x10^3/uL (4.0-11.0)
[2019-07-06] MEDS: CALCIUM CARB/VIT D3 500/200 TABLET. PO SCH ×3 (08:00→16:50)
[2019-07-06] MEDS ORDERED: INSULIN DETEMIR 22 UNIT SQ SCH (08:00)
[2019-07-06] MEDS ORDERED: INSULIN GLARGINE SYRINGE. SQ SCH (08:00)
[2019-07-06] MEDS ORDERED: C.DIFF MED SCREEN BY RX. MC ONE (08:15)
[2019-07-06] MEDS ORDERED: INFLUENZA VAX SCREEN BY RX. MC ONE (08:15)
[2019-07-06 08:19] LABS: ALBUMIN 1.7 g/dL (3.4-5.0); ALBUMIN/GLOBULIN RATIO 0.4 (1.0-1.7); CALCIUM 8.3 mg/dL (8.5-10.1); CREATININE 1.7 mg/dL (0.7-1.3); GFR 38.5; POTASSIUM 4.8 mmol/L (3.5-5.1); TOTAL BILIRUBIN 0.2 mg/dL (0.2-1.0); TOTAL PROTEIN 6.1 g/dL (6.4-8.2)
[2019-07-06] MEDS: MEROPENEM 1 GM in IV NORMAL SALINE 100ML 100 ML IV SCH ×2 (08:44→21:11)
--- NOTE | 2019-07-06 08:46 | PDOC ---
Provider Note Provider Note [id number] SATINDER KAT MD Jul 06, 2019 08:46
[2019-07-06] MEDS: DOCUSATE SODIUM 100 MG CAPSULE. PO SCH ×3 (08:58→21:10)
[2019-07-06] MEDS: MULTIVITAMIN with MINERAL TABLET. PO SCH (08:59)
[2019-07-06] MEDS: DIVALPROEX SPRINKLES 125 MG CAPSULE. PO SCH ×3 (08:59→21:09)
[2019-07-06] MEDS: FERROUS SULFATE 325 MG TABLET. PO SCH (08:59)
[2019-07-06] MEDS: LACTOBACILLUS RHAMNOSUS GG 1 CAPSULE. PO SCH ×3 (08:59→21:10)
[2019-07-06] MEDS ORDERED: FERROUS SULFATE 325 MG TABLET. PO SCH (09:00)
[2019-07-06] MEDS ORDERED: LEVOTHYROXINE 137 MCG TABLET PO SCH (09:00)
[2019-07-06] MEDS ORDERED: CHOLECALCIFEROL (VITAMIN D3) 1,000 UNIT TABLET PO SCH ×2 (09:00)
[2019-07-06] MEDS ORDERED: NON FORMULARY ITEM (Multivitamin (Multi-Day Vitamins) 1 TAB) PO SCH (09:00)
[2019-07-06] MEDS ORDERED: LINAGLIPTIN 5 MG TABLET PO SCH (09:00)
[2019-07-06] MEDS ORDERED: DOCUSATE SODIUM 100 MG CAPSULE. PO SCH (09:00)
[2019-07-06] MEDS ORDERED: NON FORMULARY ITEM (Fluticasone Propionate (Flonase Allergy Relief) 2 SPRAYS) NS SCH (09:00)
[2019-07-06] MEDS ORDERED: CETIRIZINE HCL 10 MG TABLET. PO SCH ×2 (09:00)
[2019-07-06] MEDS: LINAGLIPTIN 5 MG TABLET PO SCH (09:00)
[2019-07-06] MEDS ORDERED: GABAPENTIN 100 MG CAPSULE. PO SCH (09:00)
[2019-07-06] MEDS: IV DEXTROSE 5 %-0.45 % NACL 1,000 ML IV SCH ×2 (09:00→21:11)
[2019-07-06] MEDS ORDERED: FLU VAX QS 2019-20 (36MOS+)/PF 0.5 ML SYRINGE. VAX IM ONE (09:00)
--- NOTE | 2019-07-06 09:00 | HP ---
ADMIT DATE: 07/05/2019 CHIEF COMPLAINT AND HISTORY OF PRESENT ILLNESS: An 84-year-old patient of Dr. Currie who lives at [place] has been seen in Wound Care at [place] for some period of time for ongoing wounds in both feet. He is not able to provide good history at this time as he is sleepy and does not hear well. No old records are available for review. Apparently, the wounds have been progressively worsening with evidence of cellulitis despite oral Keflex and he is admitted with IV meds, pending cultures and appropriate consultations. He denies pain in his feet as he is a diabetic likely with longstanding neuropathy. PAST MEDICAL HISTORY: Unknown at this time. MEDICATIONS: Listed per the chart. ALLERGIES: No allergies are known. PAST SURGICAL HISTORY: He has had an obvious left transmetatarsal amputation of the foot, otherwise no other known surgeries. SOCIAL HISTORY: He states he is single and has no family. He lives in [place]. Nondrinker, nonsmoker. FAMILY HISTORY: Unremarkable. REVIEW OF SYSTEMS: No other complaints. OBJECTIVE: ENT: Moderate pallor, otherwise all within normal limits. NECK: No masses, nodes or bruits. LUNGS: Clear. CARDIOVASCULAR: Regular rate. Grade 2 systolic murmur is heard. ABDOMEN: Soft, obese, benign and nontender. EXTREMITIES: He has a large red infected ulcer of the left heel with partial foot amputation is healed as well. He has large ulcers in the lateral right foot with necrotic tissue exposed and decreased pedal pulses bilaterally. Knees are flexed and nearly immobile. Upper extremities unremarkable. NEUROLOGIC: He has poor feeling below the knees bilaterally. He is very hard of hearing. No other focal neurologic findings were noted. Mental status is unclear at this time. ASSESSMENT: Advanced open wounds of both lower extremities with cellulitis likely secondary to diabetes and secondary to diabetic neuropathy. Level of diabetic control unknown and his very low albumin is consistent with very poor underlying health as well. PLAN: All labs were ordered. We will use Zyvox and meropenem, pending culture and ID input. SATINDER KAT MD DR: SIL/radha JOB#: [id number] / [id number]
[2019-07-06] MEDS: LINEZOLID 600 MG TABLET PO SCH ×2 (09:02→21:10)
[2019-07-06] MEDS: NYSTATIN TOPICAL POWDER 15GM BOTTLE. TP SCH ×2 (09:04→21:08)
[2019-07-06 11:00] VITALS: BP 200/86
--- NOTE | 2019-07-06 11:05 | PDOC2 ---
CONSULT Date of Consult Date of Consult DATE: 07/06/19 TIME: 10:46 Reason for Consult Reason for Consult: Bilateral heel wounds Identification/Chief Complaint Chief Complaint BL foot wounds Source Source: Patient History of Present Illness Reason for Visit: Pleasant 84 year old male with history of diabetes who presents with bilateral foot wounds and cellulitis. Pt is poor historian, difficult to obtain history. he is unsure how long he has had his wounds. He has a previously done and well healed left TMA. Left heel wound. Right foot and ankle wounds. Pt denies fever, chills, nausea, vomiting or diarrhea. He denies history of peripheral or cardiac stents. He reports he does ambulate some times. He is unsure who makes medical decisions for him. Denies smoking history. Cr1.7 - unsure baseline WBC 6.6 Past Medical History Past Medical History Unable to obtain from patient, poor historian - other than diabetic Past Surgical History Past Surgical History Unable to obtain from patient Family History Family History Unable to obtain from patient Current Problem List Problem List Problems Medical Problems: (1) Cellulitis in diabetic foot Status: Acute (2) Diabetic foot ulcer Status: Acute Current Medications Current Medications Current Medications Cefepime HCl (Maxipime) 2 gm 1X ONCE IVP ; Start 07/05/19 at 20:00; Stop 07/05/19 at 20:01; Status Cancel Vancomycin HCl (Vanco Per Pharmacy) 1 each 1X ONCE MC ; Start 07/05/19 at 20:00; Stop 07/06/19 at 08:43; Status DC Cefepime HCl (Maxipime) 2 gm 1X ONCE IVP Last administered on 07/05/19at 20:01; Start 07/05/19 at 20:00; Stop 07/05/19 at 20:01; Status DC Vancomycin HCl 1.5 gm/Sodium Chloride 500 ml @ 250 mls/hr 1X ONCE IV Last administered on 07/05/19at 20:31; Start 07/05/19 at 20:30; Stop 07/05/19 at 22:29; Status DC Vancomycin HCl (Vanco Per Pharmacy) 1 each PRN DAILY PRN MC SEE COMMENTS Last administered on 07/05/19at 22:26; Start 07/05/19 at 20:30; Stop 07/06/19 at 0 8:43; Status DC Meropenem 1 gm/ Sodium Chloride 100 ml @ 200 mls/hr Q12HR IV Last administered on 07/06/19at 08:44; Start 07/06/19 at 09:00 Ondansetron HCl (Zofran) 4 mg PRN Q8HRS PRN IV NAUSEA/VOMITING; Start 07/05/19 at 21:15; Stop 07/06/19 at 21:14 Vancomycin HCl 1.25 gm/Sodium Chloride 250 ml @ 167 mls/hr Q24H IV ; Start 07/06/19 at 20:30; Stop 07/06/19 at 08:38; Status DC Vancomycin HCl (Vancomycin Trough Level) 1 each 1X ONCE MC ; Start 07/07/19 at 20:00; Stop 07/06/19 at 08:43; Status DC Albuterol Sulfate (Ventolin Neb Soln) 2.5 mg Q6HRS PRN NEB SHORTNESS OF BREATH; Start 07/06/19 at 00:15; Status UNV Cetirizine HCl (ZyrTEC) 10 mg DAILY PO ; Start 07/06/19 at 09:00; Status UNV Vitamin D (Vitamin D3) 1,000 unit DAILY PO ; Start 07/06/19 at 09:00; Status UNV Docusate Sodium (Colace) 100 mg BID PO ; Start 07/06/19 at 09:00; Status UNV Ferrous Sulfate (Feosol) 325 mg DAILY PO ; Start 07/06/19 at 09:00; Status UNV Finasteride (Proscar) 5 mg HS PO ; Start 07/06/19 at 21:00; Status UNV Gabapentin (Neurontin) 100 mg TID PO ; Start 07/06/19 at 09:00; Status UNV Levothyroxine Sodium (Synthroid) 137 mcg DAILY PO ; Start 07/06/19 at 09:00; Status UNV Linagliptin (Tradjenta) 5 mg DAILY PO ; Start 07/06/19 at 09:00; Status UNV Non-Formulary Medication (Fluticasone Propionate (Flonase Allergy Relief)) 2 sprays DAILY NS ; Start 07/06/19 at 09:00; Status UNV Non-Formulary Medication (Menthol (Biofreeze)) 118 ml QIDPRN PRN TP PAIN; Start 07/06/19 at 00:15; Status UNV Non-Formulary Medication (Multivitamin (Multi-Day Vitamins)) 1 tab DAILY PO ; Start 07/06/19 at 09:00; Status UNV Acetaminophen (Tylenol) 325 mg PRN Q4HRS PRN PO FEVER; Start 07/06/19 at 01:15 Acetaminophen (Tylenol) 650 mg PRN Q4HRS PRN PO MILD PAIN 1-3; Start 07/06/19 at 04:00 Citalopram Hydrobromide (CeleXA) 20 mg HS PO ; Start 07/06/19 at 21:00 Cyanocobalamin (Vitamin B-12) 1,000 mcg QFR IM ; Start 07/07/19 at 16:00 Divalproex Sodium (Depakote Sprinkles) 375 mg BID PO Last administered on 07/06/19at 08:59; Start 07/06/19 at 09:00 Mirtazapine (Remeron) 15 mg QHS PO ; Start 07/06/19 at 21:00 Nitroglycerin (Nitrostat) 0.4 mg PRN Q5MIN PRN SL CHEST PAIN; Start 07/06/19 at 01:15 Nystatin (Nystop) 1 geoff BID TP Last administered on 07/06/19at 09:04; Start 07/06/19 at 09:00 Non-Formulary Medication (Insulin Detemir (Levemir)) 22 unit DAILYWBKFT SQ ; Start 07/06/19 at 08:00; Status UNV Lactobacillus Rhamnosus (Culturelle) 1 cap BID PO Last administered on 07/06/19at 08:59; Start 07/06/19 at 09:00 Risperidone (RisperDAL) 0.5 mg QHS PO ; Start 07/06/19 at 21:00 Insulin Glargine (Lantus Syringe) 22 unit DAILYWBKFT SQ Last administered on 07/06/19at 09:14; Start 07/06/19 at 08:00 Albuterol Sulfate (Ventolin Neb Soln) 2.5 mg Q6HRS NEB ; Start 07/06/19 at 06:00 Cetirizine HCl (ZyrTEC) 10 mg DAILY PO ; Start 07/06/19 at 09:00; Stop 07/06/19 at 08:43; Status DC Vitamin D (Vitamin D3) 1,000 unit DAILY PO Last administered on 07/06/19 08:59; Start 07/06/19 at 09:00 Docusate Sodium (Colace) 100 mg BID PO Last administered on 07/06/19at 08:58; Start 07/06/19 at 09:00 Ferrous Sulfate (Feosol) 325 mg DAILY PO Last administered on 07/06/19at 08:59; Start 07/06/19 at 09:00 Finasteride (Proscar) 5 mg QHS PO ; Start 07/06/19 at 21:00 Fluticasone Propionate (Flonase) 2 spray QHS NS ; Start 07/06/19 at 21:00; Stop 07/06/19 at 08:43; Status DC Gabapentin (Neurontin) 100 mg PRN TID PRN PO neurogenic pain management; Start 07/06/19 at 04:00; Stop 07/06/19 at 08:44; Status DC Levothyroxine Sodium (Synthroid) 137 mcg DAILY06 PO Last administered on 07/06/19at 06:22; Start 07/06/19 at 06:00 Linagliptin (Tradjenta) 5 mg DAILY PO Last administered on 07/06/19at 09:00; Start 07/06/19 at 09:00 Calcium/Vitamin D (Oscal D 500mg/ 200uts) 1 tab BIDWMEALS PO Last administered on 07/06/19at 08:59; Start 07/06/19 at 08:00 Non-Formulary Medication (Menthol (Biofreeze)) 118 ml Q6HRS TP ; Start 07/06/19 at 06:00; Stop 07/06/19 at 06:41; Status DC Multivitamins (Thera M Plus) 1 tab DAILY PO Last administered on 07/06/19at 08:59; Start 07/06/19 at 09:00 Info (FLU VACCINE SCREEN per RX) 1 each 1X ONCE MC ; Start 07/06/19 at 08:15; Stop 07/06/19 at 08:16; Status UNV Pharmacy Consult (C.diff Med Screen By Rx) 1 each 1X ONCE MC ; Start 07/06/19 at 08:15; Stop 07/06/19 at 08:16; Status UNV Influenza Virus Vaccine Quadrival (Afluria Quad 2019-20 (3yr Up) Syringe) 0.5 ml ONCE ONCE VAX IM Last administered on 07/06/19at 09:03; Start 07/06/19 at 09:00; Stop 07/06/19 at 09:01; Status DC Linezolid (Zyvox) 600 mg BID PO Last administered on 07/06/19at 09:02; Start 07/06/19 at 09:00 Dextrose/Sodium Chloride 1,000 ml @ 100 mls/hr Q10H IV Last administered on 07/06/19at 09:00; Start 07/06/19 at 09:00 Active Scripts Active Keflex (Cephalexin) 500 Mg Capsule 1 Cap PO TID Reported Multivitamins (Multivitamin) 1 Each Tablet 1 Tab PO DAILY Tradjenta (Linagliptin) 5 Mg Tablet 5 Mg PO DAILY Levothyroxine Sodium 137 Mcg Tablet 1 Tab PO DAILY Gabapentin (Gabapentin) 100 Mg Capsule 100 Mg PO TID PRN Fluticasone Propionate Nasal [place] (Fluticasone Propionate) 16 Gm [place].susp 2 [place] NS QHS Finasteride 5 Mg Tablet 5 Mg PO QHS Ferrous Sulfate 325 Mg Tablet 1 Tab PO DAILY Docusate Sodium 100 Mg Capsule 1 Cap PO BID Vitamin D3 (Cholecalciferol (Vitamin D3)) 1,000 Unit Tablet 1 Tab PO DAILY Cetirizine Hcl 10 Mg Tablet 1 Tab PO DAILY Calcium + Vitamin D Tablet (Calcium Carbonate/Vitamin D3) 1 Each Tablet 1 Each PO BID Biofreeze (Menthol) 118 Ml Gel..ml. 118 Ml TP Q6HRS Albuterol Sulfate Neb Soln (Albuterol Sulfate) 2.5 Mg/3 Ml Vial.neb 1 Vial NEB Q6HRS Tylenol (Acetaminophen) 325 Mg Tablet 650 Mg PO Q4HRS Tylenol (Acetaminophen) 325 Mg Tablet 1 Tab PO PRN Q4HRS Risperdal (Risperidone) 0.5 Mg Tablet 0.5 Mg PO QHS Nystatin 15 Gm Powder 1 Geoff TP BID NITROGLYCERIN SubLingual (Nitroglycerin) 0.4 Mg Tab.subl 0.4 Mg SL PRN Q5MIN PRN Mirtazapine 15 Mg Tablet 1 Tab PO QHS Culturelle (Lactobacillus Rhamnosus Gg) 1 Each Capsule 1 Each PO BID Levemir (Insulin Detemir) 100 Unit/1 Ml Vial 22 Unit SQ DAILYWBKFT Depakote Sprinkle (Divalproex Sodium) 125 Mg Cap.sprink 375 Mg PO BID Cyanocobalamin Injection (Cyanocobalamin (Vitamin B-12)) 1,000 Mcg/1 Ml Vial 1 Ml IM QFR Citalopram Hbr (Citalopram Hydrobromide) 20 Mg Tablet 1 Tab PO HS Gabapentin (Gabapentin) 100 Mg Capsule 100 Mg PO TID Flonase Allergy Relief (Fluticasone Propionate) 9.9 Ml [place].susp 2 Sprays NS DAILY Biofreeze (Menthol) 118 Ml Gel..ml. 118 Ml TP QIDPRN PRN Tradjenta (Linagliptin) 5 Mg Tablet 5 Mg PO DAILY Lisinopril 10 Mg Tablet 1 Tab PO DAILY Zyrtec (Cetirizine Hcl) 10 Mg Tablet 1 Tab PO DAILY Xarelto (Rivaroxaban) 15 Mg Tablet 15 Mg PO DAILY Vitamin D3 (Cholecalciferol (Vitamin D3)) 1,000 Unit Tablet 1 Tab PO DAILY Levothyroxine Sodium 137 Mcg Tablet 1 Tab PO DAILY Levemir Flextouch (Insulin Detemir) 100 Unit/1 Ml Insuln.pen 25 Unit SQ AM Multi-Day Vitamins (Multivitamin) 1 Each Tablet 1 Tab PO DAILY Miralax (Polyethylene Glycol 3350) 17 Gm Powd.pack 1 Packet PO DAILY Levemir Flexpen (Insulin Detemir) 100 Unit/1 Ml Insuln.pen 8 Unit SQ HS Albuterol Sulfate Neb Soln (Albuterol Sulfate) 2.5 Mg/3 Ml Vial.neb 2.5 Mg IH Q6HRS PRN Acetaminophen 325 Mg Tablet 325 Mg PO Q4HRS PRN Finasteride 5 Mg Tablet 5 Mg PO HS Colace (Docusate Sodium) 100 Mg Capsule 100 Mg PO BID Calcium + Vitamin D Tablet (Calcium Carbonate/Vitamin D3) 1 Each Tablet 500,200 Each PO BID Ferrous Sulfate 325 Mg Tablet 325 Mg PO DAILY Amlodipine Besylate 5 Mg Tablet 5 Mg PO DAILY Vitamin D3 1,000 Unit Tablet (Ca Cmb No.1/Vit D3/B-6/Fa/B12) 1 Each Tablet 1 Each PO DAILY Allergies Allergies: Coded Allergies: No Known Drug Allergies (Unverified , 10/14/15) ROS General: No: Chills, Other (fever) Respiratory: No: Cough Cardiovascular: yes Edema; No Chest Pain Gastrointestinal: No Nausea, No Vomiting, No Abdominal Pain, No Diarrhea Genitourinary: YES Other (has pacheco catheter) Musculoskeletal: Yes Gait Disturbance Skin: Yes Dry Skin, Yes Rash, Yes Skin Lesion Changes, Yes Other (cellulitis) Physical Exam General: Alert, Cooperative, No acute distress HEENT: Atraumatic Lungs: Normal air movement Heart: Regular rate Abdomen: Soft, No tenderness Extremities: Other (Mild pedal edema. Bilaterally doppler signals are monophasic to DP and PT. Femoral pulses present, L stronger than R. Left groin with yeast infection. Pt has pacheco catheter in place. ) Skin: Other (Left leg cellulitis, left heel wound that is malodorous, full thickness eschar, minimally fluctuant although unable to extract any fluid or pus. There is no drainage. Wound edges soft, slightly macerated. Right foot with lateral necrotic wounds, mid foot and just below ankle. These are dry without surrounding erythema or fluctuance or drainage. L groin with yeast infection) Vitals VITALS Vital Signs Date Time Temp Pulse Resp B/P (MAP) Pulse Ox O2 Delivery O2 Flow Rate FiO2 07/06/19 07:00 99.0 67 16 135/50 (78) 99 Room Air 99.0 Labs Labs Laboratory Tests Test 07/05/19 19:22 07/05/19 23:38 07/06/19 06:50 07/06/19 07:09 White Blood Count 8.0 x10^3/uL (4.0-11.0) 6.6 x10^3/uL (4.0-11.0) Red Blood Count 3.30 x10^6/uL (4.30-5.70) 2.95 x10^6/uL (4.30-5.70) Hemoglobin 9.3 g/dL (13.0-17.5) 8.3 g/dL (13.0-17.5) Hematocrit 28.3 % (39.0-53.0) 25.1 % (39.0-53.0) Mean Corpuscular Volume 86 fL (79-100) 85 fL (79-100) Mean Corpuscular Hemoglobin 28 pg (25-35) 28 pg (25-35) Mean Corpuscular Hemoglobin Concent 33 g/dL (31-37) 33 g/dL (31-37) Red Cell Distribution Width 14.3 % (11.5-14.5) 14.4 % (11.5-14.5) Platelet Count 339 x10^3/uL (140-400) 277 x10^3/uL (140-400) Neutrophils (%) (Auto) 66 % (31-73) 68 % (31-73) Lymphocytes (%) (Auto) 19 % (24-48) 16 % (24-48) Monocytes (%) (Auto) 11 % (0-9) 13 % (0-9) Eosinophils (%) (Auto) 4 % (0-3) 3 % (0-3) Basophils (%) (Auto) 1 % (0-3) 1 % (0-3) Neutrophils # (Auto) 5.3 x10^3/uL (1.8-7.7) 4.5 x10^3/uL (1.8-7.7) Lymphocytes # (Auto) 1.5 x10^3/uL (1.0-4.8) 1.0 x10^3/uL (1.0-4.8) Monocytes # (Auto) 0.9 x10^3/uL (0.0-1.1) 0.8 x10^3/uL (0.0-1.1) Eosinophils # (Auto) 0.3 x10^3/uL (0.0-0.7) 0.2 x10^3/uL (0.0-0.7) Basophils # (Auto) 0.0 x10^3/uL (0.0-0.2) 0.0 x10^3/uL (0.0-0.2) Urine Collection Type U cath Urine Color Yellow Urine Clarity Cloudy Urine pH 5.5 Urine Specific [place] 1.015 Urine Protein 100 mg/dL (NEG-TRACE) Urine Glucose (UA) Negative mg/dL (NEG) Urine Ketones (Stick) Negative mg/dL (NEG) Urine Blood Small (NEG) Urine Nitrite Negative (NEG) Urine Bilirubin Negative (NEG) Urine Urobilinogen Dipstick 0.2 mg/dL (0.2 mg/dL) Urine Leukocyte Esterase Large (NEG) Urine RBC 20-40 /HPF (0-2) Urine WBC Tntc /HPF (0-4) Urine Squamous Epithelial Cells Occ /LPF Urine Bacteria Many /HPF (0-FEW) Sodium Level 140 mmol/L (136-145) 139 mmol/L (136-145) Potassium Level 4.8 mmol/L (3.5-5.1) 4.8 mmol/L (3.5-5.1) Chloride Level 104 mmol/L (98-107) 106 mmol/L (98-107) Carbon Dioxide Level 27 mmol/L (21-32) 26 mmol/L (21-32) Anion Gap 9 (6-14) 7 (6-14) Blood Urea Nitrogen 37 mg/dL (8-26) 36 mg/dL (8-26) Creatinine 2.0 mg/dL (0.7-1.3) 1.7 mg/dL (0.7-1.3) Estimated GFR (Cockcroft-Gault) 31.9 38.5 BUN/Creatinine Ratio 19 (6-20) 21 (6-20) Glucose Level 215 mg/dL (70-99) 264 mg/dL (70-99) Lactic Acid Level 1.8 mmol/L (0.4-2.0) Calcium Level 8.7 mg/dL (8.5-10.1) 8.3 mg/dL (8.5-10.1) Total Bilirubin 0.2 mg/dL (0.2-1.0) 0.2 mg/dL (0.2-1.0) Aspartate Amino Transf (AST/SGOT) 45 U/L (15-37) 29 U/L (15-37) Alanine Aminotransferase (ALT/SGPT) 19 U/L (16-63) 15 U/L (16-63) Alkaline Phosphatase 78 U/L (46-116) 61 U/L (46-116) Total Protein 7.1 g/dL (6.4-8.2) 6.1 g/dL (6.4-8.2) Albumin 2.0 g/dL (3.4-5.0) 1.7 g/dL (3.4-5.0) Albumin/Globulin Ratio 0.4 (1.0-1.7) 0.4 (1.0-1.7) Procalcitonin < 0.10 ng/mL (0.00-0.10) Glucose (Fingerstick) 244 mg/dL (70-99) 243 mg/dL (70-99) Iron Level 21 ug/dL (65-175) Total Iron Binding Capacity 127 ug/dL (250-450) Iron Saturation 17 % (15-34) Ferritin 394 ng/mL (26-388) Laboratory Tests Test 07/05/19 19:22 07/05/19 23:38 07/06/19 06:50 07/06/19 07:09 White Blood Count 8.0 x10^3/uL (4.0-11.0) 6.6 x10^3/uL (4.0-11.0) Red Blood Count 3.30 x10^6/uL (4.30-5.70) 2.95 x10^6/uL (4.30-5.70) Hemoglobin 9.3 g/dL (13.0-17.5) 8.3 g/dL (13.0-17.5) Hematocrit 28.3 % (39.0-53.0) 25.1 % (39.0-53.0) Mean Corpuscular Volume 86 fL (79-100) 85 fL (79-100) Mean Corpuscular Hemoglobin 28 pg (25-35) 28 pg (25-35) Mean Corpuscular Hemoglobin Concent 33 g/dL (31-37) 33 g/dL (31-37) Red Cell Distribution Width 14.3 % (11.5-14.5) 14.4 % (11.5-14.5) Platelet Count 339 x10^3/uL (140-400) 277 x10^3/uL (140-400) Neutrophils (%) (Auto) 66 % (31-73) 68 % (31-73) Lymphocytes (%) (Auto) 19 % (24-48) 16 % (24-48) Monocytes (%) (Auto) 11 % (0-9) 13 % (0-9) Eosinophils (%) (Auto) 4 % (0-3) 3 % (0-3) Basophils (%) (Auto) 1 % (0-3) 1 % (0-3) Neutrophils # (Auto) 5.3 x10^3/uL (1.8-7.7) 4.5 x10^3/uL (1.8-7.7) Lymphocytes # (Auto) 1.5 x10^3/uL (1.0-4.8) 1.0 x10^3/uL (1.0-4.8) Monocytes # (Auto) 0.9 x10^3/uL (0.0-1.1) 0.8 x10^3/uL (0.0-1.1) Eosinophils # (Auto) 0.3 x10^3/uL (0.0-0.7) 0.2 x10^3/uL (0.0-0.7) Basophils # (Auto) 0.0 x10^3/uL (0.0-0.2) 0.0 x10^3/uL (0.0-0.2) Urine Collection Type U cath Urine Color Yellow Urine Clarity Cloudy Urine pH 5.5 Urine Specific [place] 1.015 Urine Protein 100 mg/dL (NEG-TRACE) Urine Glucose (UA) Negative mg/dL (NEG) Urine Ketones (Stick) Negative mg/dL (NEG) Urine Blood Small (NEG) Urine Nitrite Negative (NEG) Urine Bilirubin Negative (NEG) Urine Urobilinogen Dipstick 0.2 mg/dL (0.2 mg/dL) Urine Leukocyte Esterase Large (NEG) Urine RBC 20-40 /HPF (0-2) Urine WBC Tntc /HPF (0-4) Urine Squamous Epithelial Cells Occ /LPF Urine Bacteria Many /HPF (0-FEW) Sodium Level 140 mmol/L (136-145) 139 mmol/L (136-145) Potassium Level 4.8 mmol/L (3.5-5.1) 4.8 mmol/L (3.5-5.1) Chloride Level 104 mmol/L (98-107) 106 mmol/L (98-107) Carbon Dioxide Level 27 mmol/L (21-32) 26 mmol/L (21-32) Anion Gap 9 (6-14) 7 (6-14) Blood Urea Nitrogen 37 mg/dL (8-26) 36 mg/dL (8-26) Creatinine 2.0 mg/dL (0.7-1.3) 1.7 mg/dL (0.7-1.3) Estimated GFR (Cockcroft-Gault) 31.9 38.5 BUN/Creatinine Ratio 19 (6-20) 21 (6-20) Glucose Level 215 mg/dL (70-99) 264 mg/dL (70-99) Lactic Acid Level 1.8 mmol/L (0.4-2.0) Calcium Level 8.7 mg/dL (8.5-10.1) 8.3 mg/dL (8.5-10.1) Total Bilirubin 0.2 mg/dL (0.2-1.0) 0.2 mg/dL (0.2-1.0) Aspartate Amino Transf (AST/SGOT) 45 U/L (15-37) 29 U/L (15-37) Alanine Aminotransferase (ALT/SGPT) 19 U/L (16-63) 15 U/L (16-63) Alkaline Phosphatase 78 U/L (46-116) 61 U/L (46-116) Total Protein 7.1 g/dL (6.4-8.2) 6.1 g/dL (6.4-8.2) Albumin 2.0 g/dL (3.4-5.0) 1.7 g/dL (3.4-5.0) Albumin/Globulin Ratio 0.4 (1.0-1.7) 0.4 (1.0-1.7) Procalcitonin < 0.10 ng/mL (0.00-0.10) Glucose (Fingerstick) 244 mg/dL (70-99) 243 mg/dL (70-99) Iron Level 21 ug/dL (65-175) Total Iron Binding Capacity 127 ug/dL (250-450) Iron Saturation 17 % (15-34) Ferritin 394 ng/mL (26-388) Assessment/Plan Assessment/Plan Pt seen and examined with Dr. Almazan Right foot diabetic wounds with eschar Left heel wound with eschar with left leg cellulitis Peripheral arterial disease based on exam Pt going for MRI today, we will get arterial duplex to assess circulation, on exam he has monophasic flow distally bilaterally. The left heel wound is most concerning, it is deep and infected, he will need debridement at the least possible amputation depending on circulation and MRI results. His right foot wounds would also benefit from debridement. Will await results of duplex and MRI with anticipated surgery in the near future. His creatinine is 1.7, I am unsure his baseline, may need to work on hydration with possible angiogram in the near future. Will ask RN to assess DPoA status. Thank you for consult, we will continue to follow. FRANCISCA BENJAMIN Jul 06, 2019 11:05
--- NOTE | 2019-07-06 12:43 | RAD ---
Examination: MRI left hindfoot without contrast HISTORY: History of diabetic wound, necrotic ulcer COMPARISON: None available TECHNIQUE: Multiplanar, multisequence MR imaging of the left foot were performed without contrast. FINDINGS: Very limited examination due to significant motion. The attachment of the Achilles tendon to the calcaneus, attachment of the plantar fascia to the inferior aspect of the calcaneus grossly appears intact. There is a soft tissue ulcer identified in the medial aspect of the posterior hindfoot just medial to the calcaneus. No evidence of cortical disruption of the calcaneus identified. There is minimal increased T2 signal identified in the medial aspect of the calcaneus inferiorly. Mild increased T2 signal identified in the posterior medial aspect of the heel. The anterior extensor compartment tendons, flexor tendons, peroneal tendons grossly appears unremarkable. Amputation changes identified at the level of the metatarsals. IMPRESSION: 1. Large soft tissue ulcer posterior medial heel without underlying osteomyelitis. Electronically signed by: Troy Calixto MD (07/06/2019 12:40 PM) [id number]
[2019-07-06 15:00] VITALS: BP 137/65
--- NOTE | 2019-07-06 15:07 | NUR ---
Wound care: Patient seen per wound care consult. See wound assessment. Patient has DFU to right ankle and right foot and right heel. Wounds cleansed and assessed. Recommendations to paint with Betadine and apply foam dressing to the right foot and right ankle and then Aquacel Ag and foam dressing to left heel. Dressings applied and patient tolerated but was irritated. Patient has what appears to be yeast to left groin. Area cleansed and Nystatin applied. Patient wound benefit from Nystatin order. Skin tear to right hand is approximated, foam for protection. Dressing change instructions left in room. No other wounds noted. Patient repositioned in bed. Bed lowered and call light in reach. Bed alarm set. Will follow patient regarding wound care.
--- NOTE | 2019-07-06 15:32 | NUR ---
SS following for discharge planning. SS reviewed pt chart and received notification that pt is a LTC resident from [facility], ; fax [phone]. SS contacted [facility] and verified that pt is a LTC resident from there facility and is able to return when medically stable for discharge. SS will continue to follow for discharge planning.
--- NOTE | 2019-07-06 17:04 | RAD ---
DUPLEX LOWER EXTREMITY BILAT Indication: Bilateral foot wounds Comparison: None. Procedure: Real-time grayscale, color flow Doppler, and Doppler spectral waveform analysis of the arterial system of the lower extremity is performed. Findings: Difficult examination due to patient's inability to follow commands of proper positioning. Right lower extremity: Triphasic waveform within the right common femoral, superficial femoral and popliteal arteries with normal velocity. Monophasic waveform within the right posterior tibial, anterior tibial and dorsalis pedis artery. Right peroneal artery not identified. Difficult evaluation of the right deep femoral artery due to patient's inability to follow commands. Left lower extremity: Left common femoral, deep femoral, superficial femoral, popliteal, posterior tibial and peroneal arteries not evaluated due to patient's inability to cooperate. Monophasic waveform within the left dorsalis pedis artery. Biphasic waveform within the left anterior tibial artery. IMPRESSION: 1. Difficult examination due to patient's inability to cooperate. Majority of the left lower extremity arterial system not evaluated. 2. Monophasic waveform within the right posterior tibial, anterior tibial and dorsalis pedis arteries, may indicate proximal stenosis. 3. Right peroneal artery not visualized, may relate to technique, slow flow or occlusion. Electronically signed by: Neeraj Handley DO (07/06/2019 5:01 PM) [id number]
--- NOTE | 2019-07-06 18:32 | NUR ---
Patient refused to take PO medications today. Dr. Brooks was notified of blood pressure 200/80. Continue to monitor.
[2019-07-06 19:20] VITALS: BP 143/53
[2019-07-06] MEDS ORDERED: VANCOMYCIN 1.25 GM in IV NORMAL SALINE 250ML 250 ML IV SCH (20:30)
[2019-07-06] MEDS ORDERED: FINASTERIDE 5 MG TABLET. PO SCH (21:00)
[2019-07-06] MEDS ORDERED: FLUTICASONE 50MCG/NASAL SPRAY 16GM BOTTLE. NS SCH (21:00)
[2019-07-06] MEDS: risperiDONE 0.25 MG TABLET. PO SCH (21:09)
[2019-07-06] MEDS: FINASTERIDE 5 MG TABLET. PO SCH (21:09)
[2019-07-06] MEDS: MIRTAZAPINE 15 MG TABLET PO SCH (21:10)
[2019-07-06] MEDS: CITALOPRAM 20 MG TABLET. PO SCH (21:10)
[2019-07-06 23:08] LABS: HEMOGLOBIN A1C 8.2 % (4.8-5.6)
[2019-07-06 23:13] VITALS: BP 133/45
[2019-07-07 03:23] VITALS: BP 133/45
[2019-07-07 04:53] LABS: CALCIUM 8.1 mg/dL (8.5-10.1); CREATININE 1.6 mg/dL (0.7-1.3); GFR 41.3; POTASSIUM 4.2 mmol/L (3.5-5.1)
[2019-07-07] MEDS: LEVOTHYROXINE 137 MCG TABLET PO SCH (05:41)
[2019-07-07] MEDS: IV DEXTROSE 5 %-0.45 % NACL 1,000 ML IV SCH (05:41)
[2019-07-07 07:00] VITALS: BP 111/39
[2019-07-07] MEDS: ALBUTEROL SULFATE 2.5 MG/3 ML NEBU. NEB SCH ×4 (07:38→20:23)
--- NOTE | 2019-07-07 09:00 | PDOC ---
Provider Note Provider Note vss, good output- mri shows no clear osteo- a1c 8.8, will inc lantus, cont zyvox/merrem pending cults- will need debridement at least , poss vacular intervention, SATINDER KAT MD Jul 07, 2019 09:00
[2019-07-07] MEDS ORDERED: INSULIN GLARGINE SYRINGE. SQ ONE (09:15)
--- NOTE | 2019-07-07 09:35 | PDOC ---
PROGRESS NOTES Subjective Subjective Patient seen and examined in room. Patient very somnolent and not cooperative with examination. Objective Objective Vital Signs Date Time Temp Pulse Resp B/P (MAP) Pulse Ox O2 Delivery O2 Flow Rate FiO2 07/07/19 07:41 98 Room Air 07/07/19 07:00 98.8 67 19 111/39 (63) 98.8 Intake and Output 07/07/19 07:00 Intake Total 385 ml Output Total 1200 ml Balance -815 ml Intake Oral 385 ml Output Urine Total 1200 ml Physical Exam Physical Exam Somnolent HRR Non-labored respirations Dressings removed bilateral feet. Mild pedal edema. Left leg cellulitis with left heel wound that is malodorous, full-thickness eschar, minimal fluctuance. Periwound with erythema. Right foot with lateral necrotic wounds, midfoot in just below ankle. These areas are dry with mild surrounding erythema, no fluctuance noted. Assessment Assessment Problems Medical Problems: (1) Cellulitis in diabetic foot Status: Acute (2) Diabetic foot ulcer Status: Acute Plan Plan of Care Arterial US reviewed, suggestive of distal monophasic wafeforms bilaterally. MRI reviewed, no osteomyelitis noted left heel. Discussed plan of care with Dr. Betito ordonez, recommend contacting patient's family or DPOA to discuss how they want to proceed and his true ambulatory status. If they want limb salvage the patient will need nephrology consult, Cr 1.6 and angiogram to evaluate his arterial circulation and surgical debridement versus left leg amputation. Even with amputation the patient will need aggressive rehabilitation post procedure. Recommend continued local wound care with protective measures and antibiotics. Discussed plan of care with RN, she will contact patient's DPOA. Comment Review of Relevant I have reviewed the following items nesha (where applicable) has been applied. Labs Laboratory Tests Test 07/05/19 19:22 07/05/19 23:38 07/06/19 06:50 07/06/19 07:09 White Blood Count 8.0 x10^3/uL (4.0-11.0) 6.6 x10^3/uL (4.0-11.0) Red Blood Count 3.30 x10^6/uL (4.30-5.70) 2.95 x10^6/uL (4.30-5.70) Hemoglobin 9.3 g/dL (13.0-17.5) 8.3 g/dL (13.0-17.5) Hematocrit 28.3 % (39.0-53.0) 25.1 % (39.0-53.0) Mean Corpuscular Volume 86 fL (79-100) 85 fL (79-100) Mean Corpuscular Hemoglobin 28 pg (25-35) 28 pg (25-35) Mean Corpuscular Hemoglobin Concent 33 g/dL (31-37) 33 g/dL (31-37) Red Cell Distribution Width 14.3 % (11.5-14.5) 14.4 % (11.5-14.5) Platelet Count 339 x10^3/uL (140-400) 277 x10^3/uL (140-400) Neutrophils (%) (Auto) 66 % (31-73) 68 % (31-73) Lymphocytes (%) (Auto) 19 % (24-48) 16 % (24-48) Monocytes (%) (Auto) 11 % (0-9) 13 % (0-9) Eosinophils (%) (Auto) 4 % (0-3) 3 % (0-3) Basophils (%) (Auto) 1 % (0-3) 1 % (0-3) Neutrophils # (Auto) 5.3 x10^3/uL (1.8-7.7) 4.5 x10^3/uL (1.8-7.7) Lymphocytes # (Auto) 1.5 x10^3/uL (1.0-4.8) 1.0 x10^3/uL (1.0-4.8) Monocytes # (Auto) 0.9 x10^3/uL (0.0-1.1) 0.8 x10^3/uL (0.0-1.1) Eosinophils # (Auto) 0.3 x10^3/uL (0.0-0.7) 0.2 x10^3/uL (0.0-0.7) Basophils # (Auto) 0.0 x10^3/uL (0.0-0.2) 0.0 x10^3/uL (0.0-0.2) Urine Collection Type U cath Urine Color Yellow Urine Clarity Cloudy Urine pH 5.5 Urine Specific [place] 1.015 Urine Protein 100 mg/dL (NEG-TRACE) Urine Glucose (UA) Negative mg/dL (NEG) Urine Ketones (Stick) Negative mg/dL (NEG) Urine Blood Small (NEG) Urine Nitrite Negative (NEG) Urine Bilirubin Negative (NEG) Urine Urobilinogen Dipstick 0.2 mg/dL (0.2 mg/dL) Urine Leukocyte Esterase Large (NEG) Urine RBC 20-40 /HPF (0-2) Urine WBC Tntc /HPF (0-4) Urine Squamous Epithelial Cells Occ /LPF Urine Bacteria Many /HPF (0-FEW) Sodium Level 140 mmol/L (136-145) 139 mmol/L (136-145) Potassium Level 4.8 mmol/L (3.5-5.1) 4.8 mmol/L (3.5-5.1) Chloride Level 104 mmol/L (98-107) 106 mmol/L (98-107) Carbon Dioxide Level 27 mmol/L (21-32) 26 mmol/L (21-32) Anion Gap 9 (6-14) 7 (6-14) Blood Urea Nitrogen 37 mg/dL (8-26) 36 mg/dL (8-26) Creatinine 2.0 mg/dL (0.7-1.3) 1.7 mg/dL (0.7-1.3) Estimated GFR (Cockcroft-Gault) 31.9 38.5 BUN/Creatinine Ratio 19 (6-20) 21 (6-20) Glucose Level 215 mg/dL (70-99) 264 mg/dL (70-99) Lactic Acid Level 1.8 mmol/L (0.4-2.0) Calcium Level 8.7 mg/dL (8.5-10.1) 8.3 mg/dL (8.5-10.1) Total Bilirubin 0.2 mg/dL (0.2-1.0) 0.2 mg/dL (0.2-1.0) Aspartate Amino Transf (AST/SGOT) 45 U/L (15-37) 29 U/L (15-37) Alanine Aminotransferase (ALT/SGPT) 19 U/L (16-63) 15 U/L (16-63) Alkaline Phosphatase 78 U/L (46-116) 61 U/L (46-116) Total Protein 7.1 g/dL (6.4-8.2) 6.1 g/dL (6.4-8.2) Albumin 2.0 g/dL (3.4-5.0) 1.7 g/dL (3.4-5.0) Albumin/Globulin Ratio 0.4 (1.0-1.7) 0.4 (1.0-1.7) Procalcitonin < 0.10 ng/mL (0.00-0.10) Glucose (Fingerstick) 244 mg/dL (70-99) 243 mg/dL (70-99) Hemoglobin A1c 8.2 % (4.8-5.6) Iron Level 21 ug/dL (65-175) Total Iron Binding Capacity 127 ug/dL (250-450) Iron Saturation 17 % (15-34) Ferritin 394 ng/mL (26-388) Test 07/06/19 11:51 07/06/19 16:50 07/06/19 21:00 07/07/19 04:15 Glucose (Fingerstick) 279 mg/dL (70-99) 276 mg/dL (70-99) 260 mg/dL (70-99) Sodium Level 139 mmol/L (136-145) Potassium Level 4.2 mmol/L (3.5-5.1) Chloride Level 105 mmol/L (98-107) Carbon Dioxide Level 29 mmol/L (21-32) Anion Gap 5 (6-14) Blood Urea Nitrogen 27 mg/dL (8-26) Creatinine 1.6 mg/dL (0.7-1.3) Estimated GFR (Cockcroft-Gault) 41.3 Glucose Level 228 mg/dL (70-99) Calcium Level 8.1 mg/dL (8.5-10.1) Test 07/07/19 07:14 Glucose (Fingerstick) 214 mg/dL (70-99) Laboratory Tests Test 07/06/19 11:51 07/06/19 16:50 07/06/19 21:00 07/07/19 04:15 Glucose (Fingerstick) 279 mg/dL (70-99) 276 mg/dL (70-99) 260 mg/dL (70-99) Sodium Level 139 mmol/L (136-145) Potassium Level 4.2 mmol/L (3.5-5.1) Chloride Level 105 mmol/L (98-107) Carbon Dioxide Level 29 mmol/L (21-32) Anion Gap 5 (6-14) Blood Urea Nitrogen 27 mg/dL (8-26) Creatinine 1.6 mg/dL (0.7-1.3) Estimated GFR (Cockcroft-Gault) 41.3 Glucose Level 228 mg/dL (70-99) Calcium Level 8.1 mg/dL (8.5-10.1) Test 07/07/19 07:14 Glucose (Fingerstick) 214 mg/dL (70-99) Microbiology 07/05/19 Anaerobic/Aerobic Culture, Resulted Pending 07/05/19 Anaerobic Culture Result 1 (DENIS), Resulted Pending 07/05/19 Aerobic Culture, Resulted Pending 07/05/19 Aerobic Culture Result 1 (DENIS), Resulted Pending 07/05/19 Gram Stain - Final, Resulted 07/05/19 Gram Stain Result 1 (DENIS) - Final, Resulted 07/05/19 Gram Stain Result 2 (DENIS) - Final, Resulted 07/05/19 Blood Culture - Preliminary, Resulted NO GROWTH AFTER 1 DAY Images Arterial US: Right lower extremity: Triphasic waveform within the right common femoral, superficial femoral and popliteal arteries with normal velocity. Monophasic waveform within the right posterior tibial, anterior tibial and dorsalis pedis artery. Right peroneal artery not identified. Difficult evaluation of the right deep femoral artery due to patient's inability to follow commands. Left lower extremity: Left common femoral, deep femoral, superficial femoral, popliteal, posterior tibial and peroneal arteries not evaluated due to patient's inability to cooperate. Monophasic waveform within the left dorsalis pedis artery. Biphasic waveform within the left anterior tibial artery. MRI IMPRESSION: 1. Large soft tissue ulcer posterior medial heel without underlying osteomyelitis. LUIS NEAL APRN Jul 07, 2019 09:35
[2019-07-07] MEDS: MEROPENEM 1 GM in IV NORMAL SALINE 100ML 100 ML IV SCH ×2 (09:51→21:22)
[2019-07-07] MEDS: MULTIVITAMIN with MINERAL TABLET. PO SCH (09:52)
[2019-07-07] MEDS: LINAGLIPTIN 5 MG TABLET PO SCH (09:52)
[2019-07-07] MEDS: FERROUS SULFATE 325 MG TABLET. PO SCH (09:52)
[2019-07-07] MEDS: DOCUSATE SODIUM 100 MG CAPSULE. PO SCH ×2 (09:52→21:20)
[2019-07-07] MEDS: DIVALPROEX SPRINKLES 125 MG CAPSULE. PO SCH ×2 (09:53→21:21)
[2019-07-07] MEDS: LINEZOLID 600 MG TABLET PO SCH ×2 (09:53→21:21)
[2019-07-07] MEDS: LACTOBACILLUS RHAMNOSUS GG 1 CAPSULE. PO SCH ×2 (09:53→21:21)
[2019-07-07] MEDS: NYSTATIN TOPICAL POWDER 15GM BOTTLE. TP SCH ×2 (09:54→21:21)
--- NOTE | 2019-07-07 10:09 | NUR ---
I called and spoke to a nurse on the second floor at [facility]. Patient has not received a flu vaccine this season as they have not started administering the vaccine. Patient did receive vaccine last season. I called and left a message for Donna ([facility]) at [phone]. Asking that she call the unit and ask for his nurse.
[2019-07-07 11:00] VITALS: BP 115/35
--- NOTE | 2019-07-07 13:26 | PDOC ---
Infectious Disease Note Vital Sign Vital Signs Vital Signs Date Time Temp Pulse Resp B/P (MAP) Pulse Ox O2 Delivery O2 Flow Rate FiO2 07/07/19 11:16 Room Air 07/07/19 11:00 98.6 76 18 115/35 (61) 99 98.6 Labs Lab Laboratory Tests Test 07/06/19 16:50 07/06/19 21:00 07/07/19 04:15 07/07/19 07:14 Glucose (Fingerstick) 276 mg/dL (70-99) 260 mg/dL (70-99) 214 mg/dL (70-99) Sodium Level 139 mmol/L (136-145) Potassium Level 4.2 mmol/L (3.5-5.1) Chloride Level 105 mmol/L (98-107) Carbon Dioxide Level 29 mmol/L (21-32) Anion Gap 5 (6-14) Blood Urea Nitrogen 27 mg/dL (8-26) Creatinine 1.6 mg/dL (0.7-1.3) Estimated GFR (Cockcroft-Gault) 41.3 Glucose Level 228 mg/dL (70-99) Calcium Level 8.1 mg/dL (8.5-10.1) Micro left foot. GRAM STAIN RES 2 Final Comment Moderate gram negative rods. Objective Assessment Cellulitis left lower extremity - Necrotic wounds, bilateral feet GNR on gram stain. -MRI shows no evidence osteo left -h/o MSSA infection UTI, POA 07/05 Yeast in groin Diabetes with peripheral neuropathy PVD GOVIND Dementia, wheelchair bound Plan Plan of Care vascular following. angiogram & debridement vs BKA, left pending DPOA decision Continue antibiotics, renal dosing - Zyvox and Meroepenem Continue Nystatin powder f/u cultures Local wound care and offloading as directed D/w nursing Thank you [id number] XRAY right foot Attending Co-Sign Attending Co-Sign The patient was seen and interviewed as well as examined at the bedside. The chart was reviewed. The case was discussed. Agree with the plan of care. DEMARCUS VILLELA APRN Jul 07, 2019 13:26 RAUL EMMANUEL MD Jul 07, 2019 15:05
--- NOTE | 2019-07-07 13:46 | CONS ---
DATE OF CONSULTATION: 07/07/2019 REFERRING PHYSICIAN: Rome Brooks MD REASON FOR CONSULTATION: Cellulitis. HISTORY OF PRESENT ILLNESS: This patient is an 84-year-old male with past medical history of diabetes, peripheral vascular disease, and a previous left transmetatarsal amputation. He is a assisted resident, who was sent to the ER for evaluation of bilateral foot ulcerations and left lower extremity redness, swelling and pain. An MRI of left hindfoot without contrast revealed a large soft tissue ulcer posterior medial heel without underlying osteomyelitis. A swab culture was done and shows gram-negative rods on Gram stain. He is currently on Zyvox and meropenem. The patient has a history of dementia and is wheelchair bound. Reportedly, he is able to stand and pivot to the chair. He has a history of left DVT as well as a prior history of MSSA infection of left foot. He denies fevers, chills or body aches. He complains of his left leg hurting. Denies cough or upset stomach. PAST MEDICAL HISTORY: Diabetes, peripheral vascular disease, MSSA wound infection, history of DVT, Alzheimer's, peripheral neuropathy, heart attack, coronary artery disease, hyperlipidemia, hypertension, gastroesophageal reflux disease, BPH, hypothyroidism, depression, anxiety. PAST SURGICAL HISTORY: Left hip arthroplasty. Left TMA. FAMILY HISTORY: Unknown. SOCIAL HISTORY: custodial resident. Nonsmoker. ALLERGIES: No known drug allergies. MEDICATIONS: Zyvox, meropenem, and probiotics. Other medications are available and have been reviewed on the DEC. Nystatin powder. REVIEW OF SYSTEMS: Per HPI, otherwise all other review of systems are negative. PHYSICAL EXAMINATION: VITAL SIGNS: Temperature is 98.6, blood pressure 115/35, heart rate 76, respiratory rate 18, pulse oximetry 99% on room air. GENERAL: The patient is sitting in chair, alert and eating. HEENT: Pupils equally round and reactive. Oropharynx pink and moist. Dentures. [place]. NECK: Supple. LUNGS: Clear to auscultation. HEART: S1, S2. ABDOMEN: Obese, soft, nontender with bowel sounds present A reducible hernia. GENITOURINARY: Indwelling Hubbard in place. Yeast in groin area. EXTREMITIES: A 1+ edema and mild erythema, left lower extremity. He has necrotic ulcerations involving left heel, right ankle and foot. Distal pulses difficult to palpate. SKIN: Warm to touch. NEUROLOGIC: Alert and answers simple questions of self appropriately, poor historian. LABORATORY DATA: Recent WBC 6.6, hemoglobin 8.3, platelets 277,000. Electrolytes are unremarkable. Creatinine 1.6 from 2.0, BUN 27, glucose 228. Hemoglobin A1c 8.2. Lactic acid 1.8, total bilirubin 0.2, AST 45, ALT 19, albumin 2.0. Procalcitonin less than 0.10. Urinalysis from 07/05 shows wbc's too numerous to count, leukocyte esterase, occasional squamous epithelial cells and many bacteria. Urine culture is pending. Blood cultures from the 2nd negative to date. Wound culture and MRI per HPI. Chest x-ray shows no evidence of acute cardiopulmonary process. A duplex lower extremity bilaterally reviewed. ASSESSMENT: 1. Cellulitis, left lower extremity. 2. Necrotic wounds, bilateral feet. 3. Urinary tract infection present on admission, 07/05. 4. Yeast in groin. 5. Diabetes with peripheral neuropathy. 6. Peripheral vascular disease. 7. Acute kidney injury. 8. Dementia, wheelchair bound. PLAN: The patient has been seen by Vascular Service. An angiogram and debridement versus a left BKA is under consideration pending DPOA decision. Continue the antibiotics, renal dosing and nystatin powder. We will follow up on culture results. Continue local wound care and offloading as directed. Discussed with nursing. Thank you, Dr. Brooks, for asking us to participate in this patient's care. Should you have further questions or concerns, please call. RAUL EMMANUEL MD DR: JAREN/radha JOB#: [id number] / [id number]
[2019-07-07 14:11] LABS: KAPPA LAMBDA RATIO 1.75 (0.26-1.65); LAMBDA FREE 70.8 mg/L (5.7-26.3)
[2019-07-07 15:00] VITALS: BP 154/46
--- NOTE | 2019-07-07 18:43 | RAD ---
Examination: FOOT RIGHT 2V History: Wounds Comparison/Correlation: 12/21/2018" 3 View X ray exam Findings: AP and lateral views of the right foot were obtained. Vascular calcification is notable. Absence of the second digit noted. No focal bony destruction. Extension of the metacarpophalangeal joints noted. Hallux valgus deformity noted. No bony destruction. Osteopenia is present. Impression: No acute bony process. Consider further evaluation if osteomyelitis is a concern. Electronically signed by: Lucas Payne MD (07/07/2019 6:39 PM) [facility]
[2019-07-07 19:00] VITALS: BP 125/50
[2019-07-07] MEDS: CYANOCOBALAMIN (VITAMIN B-12) 1,000 MCG/ML VIAL IM SCH (19:15)
[2019-07-07] MEDS: MIRTAZAPINE 15 MG TABLET PO SCH (21:20)
[2019-07-07] MEDS: FINASTERIDE 5 MG TABLET. PO SCH (21:21)
[2019-07-07] MEDS: risperiDONE 0.25 MG TABLET. PO SCH (21:21)
[2019-07-07] MEDS: CITALOPRAM 20 MG TABLET. PO SCH (21:21)
--- NOTE | 2019-07-07 21:30 | NUR ---
Patient refused bedtime meds. Meds were offered 3 times.
[2019-07-07 23:00] VITALS: BP 131/48
[2019-07-08 03:00] VITALS: BP 153/78
[2019-07-08] MEDS: LEVOTHYROXINE 137 MCG TABLET PO SCH (06:00)
--- NOTE | 2019-07-08 06:59 | PDOC ---
Infectious Disease Note Subjective Subjective Sleeping and HUGHES Opened eyes briefly ROS ROS unable to obtain Vital Sign Vital Signs Vital Signs Date Time Temp Pulse Resp B/P (MAP) Pulse Ox O2 Delivery O2 Flow Rate FiO2 07/08/19 03:00 97.9 86 18 153/78 (103) 98 Room Air 97.9 Physical Exam PHYSICAL EXAM GENERAL: The patient is in bed and looks comfortable HEENT: clesed and would not open eyes or mouth. NECK: No JVD or swelling LUNGS: Clear to auscultation. HEART: S1, S2. ABDOMEN: Obese, soft, nontender with bowel sounds present A reducible hernia. GENITOURINARY: Indwelling Hubbard in place. Yeast in groin area. EXTREMITIES: A 1+ edema and mild erythema, left lower extremity. Wounds are dressed Distal pulses difficult to palpate. SKIN: Warm to touch. NEUROLOGIC: Not responding today but looks comfortable. Labs Lab Laboratory Tests Test 07/07/19 07:14 07/07/19 11:04 07/07/19 16:35 07/07/19 21:13 Glucose (Fingerstick) 214 mg/dL (70-99) 310 mg/dL (70-99) 436 mg/dL (70-99) 442 mg/dL (70-99) Micro Microbiology 07/05/19 Anaerobic/Aerobic Culture, Resulted Pending 07/05/19 Anaerobic Culture Result 1 (DENIS), Resulted Pending 07/05/19 Aerobic Culture, Resulted Pending 07/05/19 Aerobic Culture Result 1 (DENIS), Resulted Pending 07/05/19 Gram Stain - Final, Resulted 07/05/19 Gram Stain Result 1 (DENIS) - Final, Resulted 07/05/19 Gram Stain Result 2 (DENIS) - Final, Resulted 07/05/19 Urine Culture - Preliminary, Resulted 07/05/19 Urine Culture Result 1 (DENIS) - Preliminary, Resulted 07/05/19 Blood Culture - Preliminary, Resulted NO GROWTH AFTER 2 DAYS Objective Assessment Cellulitis left lower extremity - Necrotic wounds, bilateral feet GNR on gram stain. XRAY right foot - no osteo -MRI shows no evidence osteo left -h/o MSSA infection UTI - Ecoli 07/05 Yeast in groin Diabetes with peripheral neuropathy PVD GOVIND Dementia, wheelchair bound Plan Plan of Care vascular following. angiogram & debridement vs BKA, left pending DPOA decision Continue antibiotics, renal dosing - Zyvox and Meroepenem Continue Nystatin powder f/u cultures Local wound care and offloading as directed DM control per primary D/w nursing RAUL EMMANUEL MD Jul 08, 2019 06:59
[2019-07-08 07:00] VITALS: BP 133/42
[2019-07-08] MEDS: ALBUTEROL SULFATE 2.5 MG/3 ML NEBU. NEB SCH ×5 (07:27→23:43)
[2019-07-08] MEDS ORDERED: INSULIN GLARGINE SYRINGE. SQ SCH ×2 (08:00→11:00)
[2019-07-08] MEDS: LINEZOLID 600 MG TABLET PO SCH ×2 (09:00→20:18)
[2019-07-08] MEDS: FERROUS SULFATE 325 MG TABLET. PO SCH (09:00)
[2019-07-08] MEDS: LACTOBACILLUS RHAMNOSUS GG 1 CAPSULE. PO SCH ×2 (09:00→20:18)
[2019-07-08] MEDS: LINAGLIPTIN 5 MG TABLET PO SCH (09:00)
[2019-07-08] MEDS: MULTIVITAMIN with MINERAL TABLET. PO SCH (09:00)
[2019-07-08] MEDS: NYSTATIN TOPICAL POWDER 15GM BOTTLE. TP SCH ×2 (09:00→20:29)
[2019-07-08] MEDS ORDERED: IV DEXTROSE 5 %-0.45 % NACL 1,000 ML IV SCH (10:30)
--- NOTE | 2019-07-08 10:37 | PDOC ---
Provider Note Provider Note sleeping, low grade temp, exam same- lantus ordered 07/07, NOT given yet, will inc to 50 w/ prn humalog- iv hydration re ckd , arteriogram SATINDER KAT MD Jul 08, 2019 10:37
[2019-07-08] MEDS: MEROPENEM 1 GM in IV NORMAL SALINE 100ML 100 ML IV SCH ×2 (10:45→20:28)
[2019-07-08] MEDS: DOCUSATE SODIUM 100 MG CAPSULE. PO SCH ×2 (10:46→20:18)
[2019-07-08] MEDS: DIVALPROEX SPRINKLES 125 MG CAPSULE. PO SCH ×2 (10:47→20:17)
[2019-07-08 11:00] VITALS: BP 144/60
[2019-07-08] MEDS: INSULIN LISPRO 300 UNITS/3 ML VIAL. SQ PRN ×2 (14:54→19:15)
[2019-07-08 15:00] VITALS: BP 158/53
[2019-07-08] MEDS: IV 1/2 NORMAL SALINE 1,000 ML IV SCH (19:10)
[2019-07-08 19:20] VITALS: BP 152/58
[2019-07-08] MEDS: FINASTERIDE 5 MG TABLET. PO SCH (20:18)
[2019-07-08] MEDS: MIRTAZAPINE 15 MG TABLET PO SCH (20:18)
[2019-07-08] MEDS: CITALOPRAM 20 MG TABLET. PO SCH (20:18)
[2019-07-08] MEDS: DEXTROSE 50% 25 GM / 50ML DISP.SYRIN. IV PRN (22:54)
[2019-07-08 23:12] VITALS: BP 145/62
[2019-07-09] MEDS: IV 1/2 NORMAL SALINE 1,000 ML IV SCH ×2 (00:05→13:25)
[2019-07-09 03:27] VITALS: BP 119/34
[2019-07-09] MEDS: DEXTROSE 50% 25 GM / 50ML DISP.SYRIN. IV PRN ×2 (04:38→21:32)
[2019-07-09] MEDS: LEVOTHYROXINE 137 MCG TABLET PO SCH (05:03)
[2019-07-09 07:00] VITALS: BP 150/53
[2019-07-09] MEDS: ALBUTEROL SULFATE 2.5 MG/3 ML NEBU. NEB SCH ×4 (07:10→23:51)
[2019-07-09] MEDS: MULTIVITAMIN with MINERAL TABLET. PO SCH (09:00)
[2019-07-09] MEDS: DOCUSATE SODIUM 100 MG CAPSULE. PO SCH ×2 (09:00→21:00)
[2019-07-09] MEDS: LINAGLIPTIN 5 MG TABLET PO SCH (09:00)
[2019-07-09] MEDS: LINEZOLID 600 MG TABLET PO SCH ×2 (09:00→21:38)
[2019-07-09] MEDS: DIVALPROEX SPRINKLES 125 MG CAPSULE. PO SCH ×2 (09:00→21:00)
[2019-07-09] MEDS: LACTOBACILLUS RHAMNOSUS GG 1 CAPSULE. PO SCH ×2 (09:00→21:00)
[2019-07-09] MEDS: FERROUS SULFATE 325 MG TABLET. PO SCH (09:00)
--- NOTE | 2019-07-09 09:54 | PDOC ---
GENERAL General: vss and afebrile. awakens and denies complaints but never does. chest clear, he art regular, abdomen benign, left heel dressed. e. coli so far on urine culture. gram negative rods so far on heel culture. on zyvox and meropenem. creatinine decreased to 1.6. albumin 1.7 cw severe protein calorie malnutrition. sugars much improved last 12 hours. PAD suggested on dopplers. ID and vascular surgery following. BKA vs arteriogram, etc pending DPOA decision. VITAL SIGNS/I&O Vital Signs/I&O: Vital Signs Date Time Temp Pulse Resp B/P (MAP) Pulse Ox O2 Delivery O2 Flow Rate FiO2 07/09/19 07:10 96 Room Air 07/09/19 07:00 97.8 16 16 150/53 (85) 97.8 I & O 07/08/19 07/08/19 07/09/19 15:00 23:00 07:00 Intake Total 240 ml Output Total 325 ml 700 ml Balance -325 ml -460 ml ALLERGIES Allergies: Allergies Coded Allergies Type Severity Reaction Last Updated Verified No Known Drug Allergies 10/14/15 No MEDS Medications: Current Medications Medications (Trade) Dose Ordered Sig/Karol Route PRN Reason Start Time Stop Time Status Last Admin Dose Admin Insulin Glargine (Lantus Syringe) 50 unit [id number] SQ 07/08/19 11:00 07/08/19 11:25 Insulin Human Lispro (HumaLOG) 10 units PRN Q6HRS PRN SQ LOW BLOOD SUGAR 07/08/19 10:45 07/08/19 19:15 Sodium Chloride 1,000 ml @ 75 mls/hr [id number] IV 07/08/19 10:45 07/08/19 19:10 Dextrose (Dextrose 50%-Water Syringe) 12.5 gm PRN Q15MIN PRN IV SEE COMMENTS 07/08/19 23:00 07/09/19 04:38 LAB Lab: Laboratory Tests Test 07/08/19 11:52 07/08/19 15:49 07/08/19 22:46 07/08/19 23:00 Glucose (Fingerstick) 412 mg/dL (70-99) H 348 mg/dL (70-99) H 64 mg/dL (70-99) L 120 mg/dL (70-99) H Test 07/09/19 04:34 07/09/19 04:46 07/09/19 07:20 Glucose (Fingerstick) 57 mg/dL (70-99) L 141 mg/dL (70-99) H 97 mg/dL (70-99) SHELLIE WILLIS MD Jul 09, 2019 09:54
[2019-07-09] MEDS: INSULIN GLARGINE SYRINGE. SQ SCH (10:00)
[2019-07-09 10:51] VITALS: BP 145/47
--- NOTE | 2019-07-09 10:57 | PDOC ---
Infectious Disease Note Subjective Subjective Quiet No fevers last 24 hours Vital Sign Vital Signs Vital Signs Date Time Temp Pulse Resp B/P (MAP) Pulse Ox O2 Delivery O2 Flow Rate FiO2 07/09/19 07:10 96 Room Air 07/09/19 07:00 97.8 16 16 150/53 (85) 97.8 Physical Exam PHYSICAL EXAM GENERAL: Ppropped up in bed, resting quietly, arouses to name HEENT: would not mouth. NECK: No JVD or swelling LUNGS: Clear to auscultation. HEART: S1, S2. ABDOMEN: Obese, soft, nontender with bowel sounds present A reducible hernia. GENITOURINARY: Indwelling Hubbard in place. Yeast in groin area. EXTREMITIES: LLE edema and erythema - better. Foot wounds are dressed, bilaterally. DP to palpate. SKIN: Warm to touch. NEUROLOGIC: Not answering questions PIV Labs Lab Laboratory Tests Test 07/08/19 11:52 07/08/19 15:49 07/08/19 22:46 07/08/19 23:00 Glucose (Fingerstick) 412 mg/dL (70-99) 348 mg/dL (70-99) 64 mg/dL (70-99) 120 mg/dL (70-99) Test 07/09/19 04:34 07/09/19 04:46 07/09/19 07:20 Glucose (Fingerstick) 57 mg/dL (70-99) 141 mg/dL (70-99) 97 mg/dL (70-99) Micro left foot. GRAM STAIN RES 2 Final Comment Moderate gram negative rods. 10. URINE CULTURE RES 1 Preliminary Escherichia coli 07/05. BLOOD CULTURE Preliminary NO GROWTH AFTER 3 DAYS Objective Assessment Cellulitis left lower extremity Necrotic wounds, bilateral feet GNR on gram stain. -MRI shows no evidence osteo left -h/o MSSA infection UTI, POA 07/05 E. coli Yeast in groin Diabetes with peripheral neuropathy PVD GOVIND Dementia, wheelchair bound Plan Plan of Care vascular following. angiogram & debridement vs BKA, left pending DPOA decision Continue Zyvox and Merrem Continue Nystatin powder f/u cultures Local wound care and offloading as directed DM control per primary D/w nursing Attending Co-Sign Attending Co-Sign The patient was seen and interviewed as well as examined at the bedside. The chart was reviewed. The case was discussed. Agree with the plan of care. DEMARCUS VILLELA APRN Jul 09, 2019 10:57 RAUL EMMANUEL MD Jul 09, 2019 14:54
[2019-07-09] MEDS: MEROPENEM 1 GM in IV NORMAL SALINE 100ML 100 ML IV SCH ×2 (11:55→21:47)
[2019-07-09] MEDS: NYSTATIN TOPICAL POWDER 15GM BOTTLE. TP SCH ×2 (11:55→21:47)
[2019-07-09 14:56] VITALS: BP 144/49
[2019-07-09 19:20] VITALS: BP 144/48
--- NOTE | 2019-07-09 19:33 | NUR ---
BLOOD SUGAR TRENDS: 07/08 BREAKFAST FSBG = 395; LUNCH = 412 (50 units Lantus and 10 units Humalog given); SUPPER = 345 ( 10 units Humalog given); HS = 64 (glucose given), then blood sugar raised to 120. MONDAY 07/09 0430 = 57 (glucose given, blood sugar raised to 141); BREAKFAST = 97 (no insulin, no lantus given); LUNCH = 74 (no insulin given); SUPPER = 77 (no insulin given). Patient is refusing to eat.
[2019-07-09] MEDS: FINASTERIDE 5 MG TABLET. PO SCH (21:34)
[2019-07-09] MEDS: MIRTAZAPINE 15 MG TABLET PO SCH (21:34)
[2019-07-09] MEDS: CITALOPRAM 20 MG TABLET. PO SCH (21:36)
--- NOTE | 2019-07-09 21:45 | NUR ---
Patient had blood glucose reading of 57 and 12.5g Dextrose administered. Glucose re-checked and reading of 114 at this time. Patient remains asymptomatic and is resting in bed, will continue to monitor.
--- NOTE | 2019-07-09 21:50 | NUR ---
Patient cooperative and agreed to take almost all PM medications with pudding this evening. Medications non-administered this PM include: Depakote, Lactobacillus, and Colace.
[2019-07-09 23:52] VITALS: BP 134/59
[2019-07-10] MEDS: IV 1/2 NORMAL SALINE 1,000 ML IV SCH ×2 (02:37→17:38)
[2019-07-10 03:36] VITALS: BP 138/54
[2019-07-10] MEDS: LEVOTHYROXINE 137 MCG TABLET PO SCH (06:00)
[2019-07-10 07:00] VITALS: BP 162/60
[2019-07-10] MEDS: ALBUTEROL SULFATE 2.5 MG/3 ML NEBU. NEB SCH ×4 (07:41→23:40)
--- NOTE | 2019-07-10 08:05 | PDOC ---
GENERAL General: vss and afebrile. awakens and minimal interaction this am. chest clear, heart r egular, abdomen benign, foot appears stable. sugars good. plans per vascular surgery to follow. continue antibiotics. VITAL SIGNS/I&O Vital Signs/I&O: Vital Signs Date Time Temp Pulse Resp B/P (MAP) Pulse Ox O2 Delivery O2 Flow Rate FiO2 07/10/19 07:44 95 Room Air 07/10/19 03:36 99.1 74 18 138/54 (82) 99.1 I & O 07/09/19 07/09/19 07/10/19 15:00 23:00 07:00 Intake Total 120 ml Output Total 1200 ml 1800 ml Balance -1200 ml -1680 ml ALLERGIES Allergies: Allergies Coded Allergies Type Severity Reaction Last Updated Verified No Known Drug Allergies 10/14/15 No LAB Lab: Laboratory Tests Test 07/09/19 11:18 07/09/19 16:46 07/09/19 21:20 07/09/19 21:44 Glucose (Fingerstick) 74 mg/dL (70-99) 77 mg/dL (70-99) 57 mg/dL (70-99) L 114 mg/dL (70-99) H Test 07/10/19 02:15 07/10/19 07:29 Glucose (Fingerstick) 83 mg/dL (70-99) 69 mg/dL (70-99) L SHELLIE WILLIS MD Jul 10, 2019 08:05
[2019-07-10] MEDS: MEROPENEM 1 GM in IV NORMAL SALINE 100ML 100 ML IV SCH ×2 (08:39→21:35)
[2019-07-10] MEDS: FERROUS SULFATE 325 MG TABLET. PO SCH (08:40)
[2019-07-10] MEDS: MULTIVITAMIN with MINERAL TABLET. PO SCH (08:40)
[2019-07-10] MEDS: DOCUSATE SODIUM 100 MG CAPSULE. PO SCH ×2 (08:40→21:37)
[2019-07-10] MEDS: LINEZOLID 600 MG TABLET PO SCH ×2 (08:40→21:37)
[2019-07-10] MEDS: DIVALPROEX SPRINKLES 125 MG CAPSULE. PO SCH ×2 (08:40→21:37)
[2019-07-10] MEDS: LINAGLIPTIN 5 MG TABLET PO SCH (08:40)
[2019-07-10] MEDS: NYSTATIN TOPICAL POWDER 15GM BOTTLE. TP SCH ×2 (08:48→21:38)
[2019-07-10] MEDS: LACTOBACILLUS RHAMNOSUS GG 1 CAPSULE. PO SCH ×2 (08:51→21:38)
[2019-07-10 09:31] LABS: CALCIUM 8.6 mg/dL (8.5-10.1); CREATININE 1.3 mg/dL (0.7-1.3); GFR 52.5; POTASSIUM 4.5 mmol/L (3.5-5.1)
[2019-07-10 11:00] VITALS: BP 132/51
--- NOTE | 2019-07-10 12:05 | PDOC ---
Infectious Disease Note Subjective Subjective Quiet No fevers last 24 hours Vital Sign Vital Signs Vital Signs Date Time Temp Pulse Resp B/P (MAP) Pulse Ox O2 Delivery O2 Flow Rate FiO2 07/10/19 11:00 99.4 74 18 132/51 (78) 96 Room Air 99.4 Physical Exam PHYSICAL EXAM GENERAL: Ppropped up in bed, resting quietly, arouses to name - [place] - states ok HEENT: OC/Op- clear but dry NECK: No JVD or swelling LUNGS: Clear to auscultation. HEART: S1, S2. ABDOMEN: Obese, soft, nontender with bowel sounds present A reducible hernia. GENITOURINARY: Indwelling Hubbard in place. Yeast in groin area better. EXTREMITIES: LLE edema and erythema - better. Foot wounds are dressed, bilaterally. DP to palpate. SKIN: Warm to touch. NEUROLOGIC: Not answering questions PIV Labs Lab Laboratory Tests Test 07/09/19 16:46 07/09/19 21:20 07/09/19 21:44 07/10/19 02:15 Glucose (Fingerstick) 77 mg/dL (70-99) 57 mg/dL (70-99) 114 mg/dL (70-99) 83 mg/dL (70-99) Test 07/10/19 07:29 07/10/19 08:45 07/10/19 11:26 Glucose (Fingerstick) 69 mg/dL (70-99) 182 mg/dL (70-99) Sodium Level 138 mmol/L (136-145) Potassium Level 4.5 mmol/L (3.5-5.1) Chloride Level 102 mmol/L (98-107) Carbon Dioxide Level 29 mmol/L (21-32) Anion Gap 7 (6-14) Blood Urea Nitrogen 19 mg/dL (8-26) Creatinine 1.3 mg/dL (0.7-1.3) Estimated GFR (Cockcroft-Gault) 52.5 Glucose Level 93 mg/dL (70-99) Calcium Level 8.6 mg/dL (8.5-10.1) Micro URINE CULTURE RES 1 Final Escherichia coli Greater than 100,000 colony forming units per mL Performed at: DA - [facility] [address] [facility] [address], [place], [place] [id number] Absorption Plant Operator: SB Ward MD, Phone: [phone] Greater than 100,000 colony forming units per mL Cefazolin <=4 ug/mL Cefazolin with an DENIS <=16 predicts susceptibility to the oral agents cefaclor, cefdinir, cefpodoxime, cefprozil, cefuroxime, cephalexin, and loracarbef when used for therapy of uncomplicated urinary tract infections due to E. coli, Klebsiella pneumoniae, and Proteus mirabilis. ANTIMICROBIAL SUSCEPTIBILITY Final Comment S = Susceptible; I = Intermediate; R = Resistant P = Positive; N = Negative MICS are expressed in micrograms per mL Antibiotic RSLT#1 RSLT#2 RSLT#3 RSLT#4 Amoxicillin/Clavulanic Acid S<=2 Ampicillin S =8 Cefepime S<=0.12 Ceftriaxone S<=0.25 Cefuroxime I =8 Ciprofloxacin R>=4 Ertapenem S<=0.12 Gentamicin S<=1 Imipenem S<=0.25 Levofloxacin R>=8 Meropenem S<=0.25 Nitrofurantoin I =64 Piperacillin/Tazobactam S<=4 CONTINUED ON NEXT PAGE RUN DATE: 07/09/19 PAGE 2 RUN TIME: [address] [facility] [address] [place] [address] Ze Jaimes M.D., Membership Secretary SPEC: [id number] PATIENT: SATINDER DELACRUZ [id number] (Continued) Procedure Result ANTIMICROBIAL SUSCEPTIBILITY Final (continued) Tetracycline S =2 Tobramycin S<=1 Microbiology 10/11/22 Anaerobic/Aerobic Culture, Resulted Pending 07/05/19 Anaerobic Culture Result 1 (DENIS), Resulted Pending 07/05/19 Aerobic Culture, Resulted Pending 07/05/19 Aerobic Culture Result 1 (DENIS), Resulted Pending 07/05/19 Gram Stain - Final, Resulted 07/05/19 Gram Stain Result 1 (DENIS) - Final, Resulted 07/05/19 Gram Stain Result 2 (DENIS) - Final, Resulted 07/05/19 Urine Culture - Preliminary, Resulted 07/05/19 Urine Culture Result 1 (DENIS) - Preliminary, Resulted 07/05/19 Blood Culture - Preliminary, Resulted NO GROWTH AFTER 2 DAYS Objective Assessment Cellulitis left lower extremity - Necrotic wounds, bilateral feet GNR on gram stain/Staph aureus. XRAY right foot - no osteo -MRI shows no evidence osteo left -h/o MSSA infection UTI - Ecoli 10/2 Yeast in groin Diabetes with peripheral neuropathy PVD GOVIND Dementia, wheelchair bound Plan Plan of Care vascular following. angiogram & debridement vs BKA, left pending DPOA decision Continue Zyvox and Merrem Continue Nystatin powder f/u cultures Local wound care and offloading as directed DM control per primary D/w nursing RAUL EMMANUEL MD Jul 10, 2019 12:05
--- NOTE | 2019-07-10 12:35 | NUR ---
SS following up with discharge planning. Pt is LTC pt from [place], ; fax [phone], and is able to return when medically stable for discharge. SS will continue to follow for discharge planning.
[2019-07-10] MEDS: INSULIN GLARGINE SYRINGE. SQ SCH (12:36)
--- NOTE | 2019-07-10 14:20 | PDOC ---
Provider Note Provider Note Vascular S: Pt up in chair, reports no complaints. Does respond appropriately about 50% of time. Cannot tell me who Donna is (his listed DPoA) O:Awake, alert, disoriented HRR Non-labored respirations Dressings in place bilateral feet. Mild pedal edema. Left leg cellulitis with left heel wound that is malodorous, full-thickness eschar, minimal fluctuance. Periwound with erythema. Right foot with lateral necrotic wounds, mid foot and just below ankle. These areas are dry with mild surrounding erythema, no fluctuance noted. Cannot appreciate pedal pulses. Doppler signals monophasic arterial duplex: Triphasic waveform within the right common femoral, superficial femoral and popliteal arteries with normal velocity. Monophasic waveform within the right posterior tibial, anterior tibial and dorsalis pedis artery. Right peroneal artery not identified. Difficult evaluation of the right deep femoral artery due to patient's inability to follow commands. Left lower extremity: Left common femoral, deep femoral, superficial femoral, popliteal, posterior tibial and peroneal arteries not evaluated due to patient's inability to cooperate. Monophasic waveform within the left dorsalis pedis artery. Biphasic waveform within the left anterior tibial artery. Assessment/Plan: Right foot necrotic wounds Left heel wound with infection and cellulitis PAD Arterial US reviewed, left leg not well evaluated, right leg with normal waveforms until below the knee then monophasic. Previous arterial duplex from 06/27/19 at outside facility showed mild focal stenosis of lef mid SFA. MRI with out osteomyelitis of left heel. We have recommended arteriogram to ideally treat his PAD to optimize wound healing, however we have been unsuccessful at getting ahold of his DPoA and he is not competent to make his own medical decisions. I attempted again today to get ahold of DPoA without success, but will continue to try to get ahold of her. I have tried 2 numbers, Donna [phone] (home), (cell). His Cr has improved at 1.3. He also needs debridement of these wounds to control the infection and optimize wound healing. His left heel wound and infection likely will not be controlled on abx alone and needs surgical debridement for infection control. At this point I recommend we try to move forward with debridement tomorrow, Hopefully the RN can get ahold of the DPoA for consent. We can go from there regarding circulation status and hopefully discuss with DPoA future goals. Pt reports he still ambulates some, he was up in chair today. Recommend continued local wound care with protective measures and antibiotics in meantime. FRANCISCA BENJAMIN Jul 10, 2019 14:20
[2019-07-10 15:00] VITALS: BP 127/50
[2019-07-10 17:13] LABS: ALPHA 1 0.4 g/dL (0.0-0.4); PROTEIN TOTAL 5.4 g/dL (6.0-8.5); SPEP AG RATIO 0.6 (0.7-1.7)
[2019-07-10 19:00] VITALS: BP 137/56
[2019-07-10] MEDS: FINASTERIDE 5 MG TABLET. PO SCH (21:37)
[2019-07-10] MEDS: MIRTAZAPINE 15 MG TABLET PO SCH (21:37)
[2019-07-10] MEDS: CITALOPRAM 20 MG TABLET. PO SCH (21:38)
[2019-07-10] MEDS: INSULIN LISPRO 300 UNITS/3 ML VIAL. SQ PRN (22:19)
[2019-07-10 23:00] VITALS: BP 132/53
[2019-07-11] VITALS (12 sets, daily range): BP systolic 124–147; BP diastolic 41–59
[2019-07-11] MEDS: IV 1/2 NORMAL SALINE 1,000 ML IV SCH ×2 (05:51→17:17)
[2019-07-11] MEDS: LEVOTHYROXINE 137 MCG TABLET PO SCH (05:51)
[2019-07-11] MEDS ORDERED: IV RINGERS,LACTATED 1000ML 1,000 ML IV SCH (07:00)
[2019-07-11] MEDS ORDERED: LIDOCAINE 1% PF 2 ML VIAL. ID PRN (07:00)
[2019-07-11] MEDS ORDERED: PROCHLORPERAZINE 10 MG/2 ML VIAL. IV PRN (07:00)
[2019-07-11] MEDS ORDERED: MORPHINE SULFATE 2 MG/ML VIAL. IV PRN (07:00)
[2019-07-11] MEDS ORDERED: HYDROmorphone 2 MG/ML VIAL IV PRN (07:00)
[2019-07-11] MEDS: ALBUTEROL SULFATE 2.5 MG/3 ML NEBU. NEB SCH ×4 (07:58→19:46)
[2019-07-11] MEDS: INSULIN GLARGINE SYRINGE. SQ SCH (08:00)
[2019-07-11] MEDS: MEROPENEM 1 GM in IV NORMAL SALINE 100ML 100 ML IV SCH ×2 (08:11→21:24)
[2019-07-11 08:22] LABS: HEMATOCRIT 26.8 % (39.0-53.0); HEMOGLOBIN 8.7 g/dL (13.0-17.5); RED BLOOD COUNT 3.18 x10^6/uL (4.30-5.70); RED CELL DISTRIBUTION WIDTH 14.4 % (11.5-14.5); WHITE BLOOD COUNT 7.5 x10^3/uL (4.0-11.0)
[2019-07-11] MEDS: LACTOBACILLUS RHAMNOSUS GG 1 CAPSULE. PO SCH ×2 (08:31→21:25)
[2019-07-11] MEDS: DOCUSATE SODIUM 100 MG CAPSULE. PO SCH ×2 (08:31→21:25)
[2019-07-11] MEDS: FERROUS SULFATE 325 MG TABLET. PO SCH (08:32)
[2019-07-11] MEDS: LINAGLIPTIN 5 MG TABLET PO SCH (08:32)
[2019-07-11] MEDS: LINEZOLID 600 MG TABLET PO SCH ×2 (08:32→21:25)
[2019-07-11] MEDS: DIVALPROEX SPRINKLES 125 MG CAPSULE. PO SCH ×2 (08:32→21:25)
[2019-07-11] MEDS: MULTIVITAMIN with MINERAL TABLET. PO SCH (08:32)
[2019-07-11 08:53] LABS: CALCIUM 8.4 mg/dL (8.5-10.1); CREATININE 1.4 mg/dL (0.7-1.3); GFR 48.2; POTASSIUM 4.4 mmol/L (3.5-5.1)
[2019-07-11] MEDS: NYSTATIN TOPICAL POWDER 15GM BOTTLE. TP SCH ×2 (09:00→21:25)
--- NOTE | 2019-07-11 09:46 | PDOC ---
Infectious Disease Note Subjective Subjective Awakens and states ok States Donna is a friend who takes care of him ROS ROS No N/V/SOA/pain O/w neg Vital Sign Vital Signs Vital Signs Date Time Temp Pulse Resp B/P (MAP) Pulse Ox O2 Delivery O2 Flow Rate FiO2 07/11/19 07:59 96 Room Air 07/11/19 07:00 98.0 68 16 137/47 (77) 98.0 Physical Exam PHYSICAL EXAM GENERAL: Ppropped up in bed, resting quietly, arouses to name - [place] - states ok - no pain /nausea. itch HEENT: OC/Op- clear but dry NECK: No JVD or swelling LUNGS: Clear to auscultation. HEART: S1, S2. ABDOMEN: Obese, soft, nontender with bowel sounds present A reducible hernia. GENITOURINARY: Indwelling Hubbard in place. Yeast in groin area better. EXTREMITIES: LLE edema and erythema - better. Foot wounds are dressed, bilaterally. DP to palpate. Left leg cellulitis improved with left heel wound that is full-thickness eschar, minimal fluctuance. Periwound with erythema. Right foot with lateral necrotic wounds, mid foot and just below ankle. These areas are dry with mild surrounding erythema, no fluctuance noted. SKIN: Warm to touch. NEUROLOGIC: awakes and is coop PIV Labs Lab Laboratory Tests Test 07/10/19 11:26 07/10/19 16:29 07/10/19 20:52 07/11/19 07:40 Glucose (Fingerstick) 182 mg/dL (70-99) 320 mg/dL (70-99) 404 mg/dL (70-99) 52 mg/dL (70-99) Test 07/11/19 07:55 White Blood Count 7.5 x10^3/uL (4.0-11.0) Red Blood Count 3.18 x10^6/uL (4.30-5.70) Hemoglobin 8.7 g/dL (13.0-17.5) Hematocrit 26.8 % (39.0-53.0) Mean Corpuscular Volume 84 fL (79-100) Mean Corpuscular Hemoglobin 27 pg (25-35) Mean Corpuscular Hemoglobin Concent 33 g/dL (31-37) Red Cell Distribution Width 14.4 % (11.5-14.5) Platelet Count 295 x10^3/uL (140-400) Sodium Level 139 mmol/L (136-145) Potassium Level 4.4 mmol/L (3.5-5.1) Chloride Level 105 mmol/L (98-107) Carbon Dioxide Level 27 mmol/L (21-32) Anion Gap 7 (6-14) Blood Urea Nitrogen 24 mg/dL (8-26) Creatinine 1.4 mg/dL (0.7-1.3) Estimated GFR (Cockcroft-Gault) 48.2 Glucose Level 59 mg/dL (70-99) Calcium Level 8.4 mg/dL (8.5-10.1) Micro Bacteroides fragilis 1+ AEROBIC CULT Preliminary Preliminary report AEROBIC RES 1 Preliminary Staphylococcus aureus Comment 4+ Methicillin - resistant Staphylococcus aureus 4+ Based on resistance to oxacillin this isolate would be resistant to all currently available beta-lactam antimicrobial agents, with the exception of the newer cephalosporins with anti-MRSA activity, such as Ceftaroline This isolate does not demonstrate inducible clindamycin resistance in vitro by D test. AEROBIC RES 2 Preliminary Gram negative rods Alcaligenes faecalis 4+ AEROBIC RES 3 Preliminary Mixed skin lala CONTINUED ON NEXT PAGE RUN DATE: 07/10/19 PAGE 2 RUN TIME: 181 [facility] [address] [place] [address] Ze Jaimes M.D., Silk Washing Machine Operator SPEC: [id number] PATIENT: SATINDER DELACRUZ [id number] (Continued) Procedure Result AEROBIC RES 3 Preliminary (continued) 4+ ANTIMICROBIAL SUSCEPTIBILITY Preliminary Comment S = Susceptible; I = Intermediate; R = Resistant P = Positive; N = Negative MICS are expressed in micrograms per mL Antibiotic RSLT#1 RSLT#2 RSLT#3 RSLT#4 Amikacin S<=2 Cefepime S =4 Cefotaxime S =4 Ceftazidime S =4 Ceftriaxone S<=1 Ciprofloxacin S =1 Gentamicin S =2 Imipenem S =4 Meropenem S =2 Tetracycline I =8 Ticarcillin I =64 Tobramycin S<=1 GRAM STAIN Final URINE CULTURE RES 1 Final Escherichia coli Greater than 100,000 colony forming units per mL Performed at: DA - [facility] [address], [place] [id number] Customer Account Specialist: SB Ward MD, Phone: [phone] Greater than 100,000 colony forming units per mL Cefazolin <=4 ug/mL Cefazolin with an DENIS <=16 predicts susceptibility to the oral agents cefaclor, cefdinir, cefpodoxime, cefprozil, cefuroxime, cephalexin, and loracarbef when used for therapy of uncomplicated urinary tract infections due to E. coli, Klebsiella pneumoniae, and Proteus mirabilis. ANTIMICROBIAL SUSCEPTIBILITY Final Comment S = Susceptible; I = Intermediate; R = Resistant P = Positive; N = Negative MICS are expressed in micrograms per mL Antibiotic RSLT#1 RSLT#2 RSLT#3 RSLT#4 Amoxicillin/Clavulanic Acid S<=2 Ampicillin S =8 Cefepime S<=0.12 Ceftriaxone S<=0.25 Cefuroxime I =8 Ciprofloxacin R>=4 Ertapenem S<=0.12 Gentamicin S<=1 Imipenem S<=0.25 Levofloxacin R>=8 Meropenem S<=0.25 Nitrofurantoin I =64 Piperacillin/Tazobactam S<=4 CONTINUED ON NEXT PAGE RUN DATE: 07/09/19 PAGE 2 RUN TIME: [address] [facility] [address] [place] [address] Ze Jaimes M.D., Silk Washing Machine Operator - SPEC: [id number] PATIENT: SATINDER DELACRUZ [id number] (Continued) Procedure Result ANTIMICROBIAL SUSCEPTIBILITY Final (continued) Tetracycline S =2 Tobramycin S<=1 Microbiology 07/05/19 Anaerobic/Aerobic Culture, Resulted Pending 07/05/19 Anaerobic Culture Result 1 (DENIS), Resulted Pending 07/05/19 Aerobic Culture, Resulted Pending 07/05/19 Aerobic Culture Result 1 (DENIS), Resulted Pending 07/05/19 Gram Stain - Final, Resulted 07/05/19 Gram Stain Result 1 (DENIS) - Final, Resulted 07/05/19 Gram Stain Result 2 (DENIS) - Final, Resulted 07/05/19 Urine Culture - Preliminary, Resulted 07/05/19 Urine Culture Result 1 (DENIS) - Preliminary, Resulted 07/05/19 Blood Culture - Preliminary, Resulted NO GROWTH AFTER 2 DAYS Objective Assessment Cellulitis left lower extremity - Necrotic wounds, bilateral feet MRSA/Alcaligenes/Bacteroides. XRAY right foot - no osteo -MRI shows no evidence osteo left -h/o MSSA infection UTI - Ecoli 10/2 Yeast in groin Diabetes with peripheral neuropathy PVD GOVIND Dementia, wheelchair bound Plan Plan of Care vascular following. angiogram & debridement vs BKA, left pending DPOA decision Continue Zyvox and Merrem Continue Nystatin powder f/u cultures Local wound care and offloading as directed DM control per primary May need palliative eval D/w nursing RAUL EMMANUEL MD Jul 11, 2019 09:46
[2019-07-11] MEDS: DEXTROSE 50% 25 GM / 50ML DISP.SYRIN. IV PRN (09:58)
--- NOTE | 2019-07-11 10:00 | NUR ---
0800 Jonas held for FSBS of 52, [address] Almendarez regarding blood sugar
--- NOTE | 2019-07-11 10:40 | PN ---
DATE: 07/11/2019 DAILY PROGRESS NOTE SUBJECTIVE: The patient is easily awakened. Denies any complaints, it is at his baseline state of confusion. OBJECTIVE: VITAL SIGNS: Stable. He is afebrile. CHEST: Clear. HEART: Regular. ABDOMEN: Benign. LABORATORY DATA: Sugars have elevated yesterday evening with a back down on the low side this morning. Creatinine is decreased to 1.3 yesterday. Vascular Surgery was attempting to get a hold of DPOA yesterday to proceed as far as debridement and amputation versus revascularization of the leg. He is growing currently MRSA from the wound as well as Alcaligenes faecalis. IMPRESSION: Diabetic foot infection with MRSA. PLAN: Await further plans per Vascular Surgery as far as debridement versus amputation versus revascularization. SHELLIE WILLIS MD DR: NILDA/radha JOB#: [id number] / [id number]
[2019-07-11] MEDS ORDERED: LIDOCAINE 2% PF 5 ML VIAL. ONE (11:37)
[2019-07-11] MEDS ORDERED: PROPOFOL 20 ML IV ONE (11:37)
[2019-07-11] MEDS ORDERED: KETAMINE HCL IN NACL, ISO-OSM 50 MG/5 ML SYRINGE ONE (12:26)
[2019-07-11] MEDS ORDERED: HYDROcodone/APAP 5/325MG 1 TAB TABLET PO PRN (12:30)
[2019-07-11] MEDS ORDERED: LIDOCAINE 1% PF 30 ML VIAL. ONE (12:33)
[2019-07-11] MEDS ORDERED: PHENYLEPHRINE in 0.9% NACL PF 1 MG/10 ML SYRINGE. IV ONE (12:46)
[2019-07-11] MEDS ORDERED: SEVOFLURANE 16 TO 30 MINUTES. IH ONE (12:46)
--- NOTE | 2019-07-11 13:02 | PDOC ---
BRIEF OPERATIVE NOTE Date: Jul 11, 2019 Pre-Op Diagnosis 1. Left heel large necrotic wound with surrounding cellulitis 2. Right lateral foot necrotic wounds 3. Diabetes Post-Op Diagnosis Same Procedure Performed 1. Left heel sharp excisional debridement 7x7cm 2. Right lateral foot and ankle excisional debridement 2x2cm each wound Surgeon Laura Monsalve MD Rough Rice Grader JONNIE Collins Anesthesia Type: MAC Blood Loss 5mL Specimens Obtained Left heel culture Findings Ok bleeding. Complications None Operative Note See dictated op note FRANCISCA BENJAMIN Jul 11, 2019 13:02
--- NOTE | 2019-07-11 13:21 | OP ---
DATE OF SURGERY: 07/11/2019 SURGEON: Laura Monsalve MD CODE ENFORCEMENT INSPECTOR: Sue Durant, physician study assistant. PREOPERATIVE DIAGNOSES: 1. Left heel large necrotic wound with surrounding cellulitis. 2. Right lateral foot necrotic wounds with surrounding cellulitis. POSTOPERATIVE DIAGNOSES: 1. Left heel large necrotic wound with surrounding cellulitis. 2. Right lateral foot necrotic wounds with surrounding cellulitis. OPERATION PERFORMED: 1. Sharp excisional debridement of the left heel necrotic wound removing necrotic skin, subcutaneous tissue and muscle, measurements after debridement were approximately 7 cm in length x 7 cm in width x 0.5 cm in depth. 2. Right lateral foot sharp excisional debridement of a necrotic ulcer removing necrotic skin and subcutaneous tissue. The measurements on the lateral foot where 2 cm in width x 2 cm in length x superficial in depth. 3. Right lateral ankle necrotic wound sharp excisional debridement removing necrotic skin and subcutaneous tissue, measurements after debridement were approximately 2 cm in length x 2 cm in width x superficial in depth. ANESTHESIA USED: General anesthesia. BLOOD LOSS: Approximately 5 mL. INDICATIONS: The patient is an 84-year-old male with a history of a left transmetatarsal amputation, who is mainly bedridden. He has developed a large necrotic wound with gangrene on his left heel with surrounding infection and cellulitis. He also developed rotary drier gangrene 2 areas of necrotic wounds on his right lateral foot and ankle. I recommend surgical debridement of all the wounds in his feet removing the necrotic and infected tissue. Informed consent was obtained from his power of tax associate attorney. DETAILS OF THE OPERATION: The patient was brought into the operating room and placed on table in supine position. He received general anesthesia monitored throughout the case by the anesthesiologist. His bilateral feet and ankles were prepped and draped by normal sterile fashion. We used sharp dissection, debrided large left heel necrotic wound. This was deep down into the muscle and I did have to excise subcutaneous tissue and muscle to get down to healthier tissue. There was good bleeding which was controlled with electrocautery. Dissection was continued until there was no further gross necrotic tissue seen. His right lateral ankle and foot had 2 necrotic wounds. I excised sharply necrotic skin and subcutaneous tissue throughout both of these wounds. Hemostasis was gained with electrocautery. We irrigated with antibiotic solution. Aquacel was left on all wounds and the foot wrapped with 4 x 4 gauze, Kerlix wraps, ABDs, and Eran bandages. He tolerated the surgery with no immediate complications. Sue Durant was scrubbed throughout the entire length of the case. LAURA MONSALVE MD DR: MALIKA/radha JOB#: [id number] / [id number]
[2019-07-11] MEDS: CITALOPRAM 20 MG TABLET. PO SCH (21:25)
[2019-07-11] MEDS: FINASTERIDE 5 MG TABLET. PO SCH (21:25)
[2019-07-11] MEDS: MIRTAZAPINE 15 MG TABLET PO SCH (21:25)
[2019-07-12] MEDS: ALBUTEROL SULFATE 2.5 MG/3 ML NEBU. NEB SCH ×5 (00:32→23:25)
[2019-07-12 03:00] VITALS: BP 135/59
[2019-07-12] MEDS: LEVOTHYROXINE 137 MCG TABLET PO SCH (06:00)
[2019-07-12 07:00] VITALS: BP 141/53
[2019-07-12] MEDS: INSULIN GLARGINE SYRINGE. SQ SCH (08:00)
[2019-07-12] MEDS ORDERED: FLU VAX QS 2019-20 (36MOS+)/PF 0.5 ML SYRINGE. VAX IM ONE (08:00)
--- NOTE | 2019-07-12 08:09 | PN ---
DATE: 07/12/2019 DAILY PROGRESS NOTE LOCATION: He is in room 434. SUBJECTIVE: The patient is resting quietly, minimally awakens, denies complaints. OBJECTIVE: VITAL SIGNS: Stable. He is afebrile. CHEST: Clear. HEART: Regular. ABDOMEN: Benign. EXTREMITIES: Both feet are bandaged. He did undergo surgical debridement of both feet yesterday, 7 x 7 debridement on the left heel and 2 x 2 on the right lateral foot and ankle of each wound by Vascular Surgery. LABORATORY DATA: Sugars have been very good in the last 24 hours. IMPRESSION: 1. Diabetic foot ulcers with infection including methicillin-resistant Staphylococcus aureus. 2. Peripheral arterial disease. 3. Diabetes. PLAN: Continue present antibiotic therapy per ID with Vascular Surgery to decide further plans based on discussions with a durable power of associate attorney. SHELLIE WILLIS MD DR: NILDA/radha JOB#: [id number] / [id number]
--- NOTE | 2019-07-12 08:52 | NUR ---
IP: Pt is mrsa + in L foot wound requiring contact precautions.
[2019-07-12] MEDS: IV 1/2 NORMAL SALINE 1,000 ML IV SCH (09:02)
[2019-07-12] MEDS: MEROPENEM 1 GM in IV NORMAL SALINE 100ML 100 ML IV SCH ×2 (09:02→20:50)
[2019-07-12] MEDS: DIVALPROEX SPRINKLES 125 MG CAPSULE. PO SCH ×2 (09:04→20:52)
[2019-07-12] MEDS: LINAGLIPTIN 5 MG TABLET PO SCH (09:04)
[2019-07-12] MEDS: LINEZOLID 600 MG TABLET PO SCH ×2 (09:04→20:53)
[2019-07-12] MEDS: MULTIVITAMIN with MINERAL TABLET. PO SCH (09:04)
[2019-07-12] MEDS: DOCUSATE SODIUM 100 MG CAPSULE. PO SCH ×2 (09:04→20:52)
[2019-07-12] MEDS: LACTOBACILLUS RHAMNOSUS GG 1 CAPSULE. PO SCH ×2 (09:05→20:54)
[2019-07-12] MEDS: FERROUS SULFATE 325 MG TABLET. PO SCH (09:05)
[2019-07-12] MEDS: NYSTATIN TOPICAL POWDER 15GM BOTTLE. TP SCH ×2 (09:08→20:55)
--- NOTE | 2019-07-12 10:53 | PDOC ---
Infectious Disease Note Subjective Subjective Awakens and states ok States Donna is a friend who takes care of him Vital Sign Vital Signs Vital Signs Date Time Temp Pulse Resp B/P (MAP) Pulse Ox O2 Delivery O2 Flow Rate FiO2 07/12/19 07:44 Room Air 07/12/19 07:29 98 07/12/19 07:00 98.0 67 16 141/53 (82) 98.0 07/11/19 13:34 10 Physical Exam PHYSICAL EXAM GENERAL: Ppropped up in bed, resting quietly, arouses to name - [place] - states ok - no pain /nausea. itch HEENT: OC/Op- clear but dry NECK: No JVD or swelling LUNGS: Clear to auscultation. HEART: S1, S2. ABDOMEN: Obese, soft, nontender with bowel sounds present A reducible hernia. GENITOURINARY: Indwelling Hubbard in place. Yeast in groin area better. EXTREMITIES: LLE edema and erythema - better. Foot wounds are dressed, bilaterally. Post op dressings SKIN: Warm to touch. NEUROLOGIC: awakes PIV Labs Lab Laboratory Tests Test 07/11/19 13:27 07/11/19 16:48 07/11/19 21:03 07/12/19 07:33 Glucose (Fingerstick) 136 mg/dL (70-99) 107 mg/dL (70-99) 110 mg/dL (70-99) 82 mg/dL (70-99) Micro Bacteroides fragilis 1+ AEROBIC CULT Preliminary Preliminary report AEROBIC RES 1 Preliminary Staphylococcus aureus Comment 4+ Methicillin - resistant Staphylococcus aureus 4+ Based on resistance to oxacillin this isolate would be resistant to all currently available beta-lactam antimicrobial agents, with the exception of the newer cephalosporins with anti-MRSA activity, such as Ceftaroline This isolate does not demonstrate inducible clindamycin resistance in vitro by D test. AEROBIC RES 2 Preliminary Gram negative rods Alcaligenes faecalis 4+ AEROBIC RES 3 Preliminary Mixed skin lala CONTINUED ON NEXT PAGE RUN DATE: 07/10/19 PAGE 2 RUN TIME: 181 [facility] [address] [place] [address] Ze Jaimes M.D., Scrubber Operator ----- ------- SPEC: [id number] PATIENT: SATINDER DELACRUZ [id number] (Continued) Procedure Result AEROBIC RES 3 Preliminary (continued) 4+ ANTIMICROBIAL SUSCEPTIBILITY Preliminary Comment S = Susceptible; I = Intermediate; R = Resistant P = Positive; N = Negative MICS are expressed in micrograms per mL Antibiotic RSLT#1 RSLT#2 RSLT#3 RSLT#4 Amikacin S<=2 Cefepime S =4 Cefotaxime S =4 Ceftazidime S =4 Ceftriaxone S<=1 Ciprofloxacin S =1 Gentamicin S =2 Imipenem S =4 Meropenem S =2 Tetracycline I =8 Ticarcillin I =64 Tobramycin S<=1 GRAM STAIN Final URINE CULTURE RES 1 Final Escherichia coli Greater than 100,000 colony forming units per mL Performed at: DA - [facility] [address], [place], [place] [id number] Grinding Room Inspector: SB Ward MD, Phone: [phone] Greater than 100,000 colony forming units per mL Cefazolin <=4 ug/mL Cefazolin with an DENIS <=16 predicts susceptibility to the oral agents cefaclor, cefdinir, cefpodoxime, cefprozil, cefuroxime, cephalexin, and loracarbef when used for therapy of uncomplicated urinary tract infections due to E. coli, Klebsiella pneumoniae, and Proteus mirabilis. ANTIMICROBIAL SUSCEPTIBILITY Final Comment S = Susceptible; I = Intermediate; R = Resistant P = Positive; N = Negative MICS are expressed in micrograms per mL Antibiotic RSLT#1 RSLT#2 RSLT#3 RSLT#4 Amoxicillin/Clavulanic Acid S<=2 Ampicillin S =8 Cefepime S<=0.12 Ceftriaxone S<=0.25 Cefuroxime I =8 Ciprofloxacin R>=4 Ertapenem S<=0.12 Gentamicin S<=1 Imipenem S<=0.25 Levofloxacin R>=8 Meropenem S<=0.25 Nitrofurantoin I =64 Piperacillin/Tazobactam S<=4 CONTINUED ON NEXT PAGE RUN DATE: 07/09/19 PAGE 2 RUN TIME: 1612 [facility] [address] [place] [address] Ze Jaimes M.D., Scrubber Operator SPEC: [id number] PATIENT: SATINDER DELACRUZ [id number] (Continued) Procedure Result ANTIMICROBIAL SUSCEPTIBILITY Final (continued) Tetracycline S =2 Tobramycin S<=1 Microbiology 07/05/19 Anaerobic/Aerobic Culture, Resulted Pending 07/05/19 Anaerobic Culture Result 1 (DENIS), Resulted Pending 07/05/19 Aerobic Culture, Resulted Pending 07/05/19 Aerobic Culture Result 1 (DENIS), Resulted Pending 07/05/19 Gram Stain - Final, Resulted 07/05/19 Gram Stain Result 1 (DENIS) - Final, Resulted 07/05/19 Gram Stain Result 2 (DENIS) - Final, Resulted 07/05/19 Urine Culture - Preliminary, Resulted 07/05/19 Urine Culture Result 1 (DENIS) - Preliminary, Resulted 07/05/19 Blood Culture - Preliminary, Resulted NO GROWTH AFTER 2 DAYS Objective Assessment Cellulitis left lower extremity S/p 1. Left heel sharp excisional debridement 7x7cm 2. Right lateral foot and ankle excisional debridement 2x2cm each wound 07/11 Necrotic wounds, bilateral feet MRSA/Alcaligenes/Bacteroides/Group B. XRAY right foot - no osteo -MRI shows no evidence osteo left -h/o MSSA infection UTI - Ecoli 07/05 Yeast in groin Diabetes with peripheral neuropathy PVD GOVIND Dementia, wheelchair bound Plan Plan of Care ? Nutrition Continue Zyvox and Merrem for now Continue Nystatin powder f/u cultures Local wound care and offloading as directed DM control per primary May need palliative eval D/w nursing RAUL EMMANUEL MD Jul 12, 2019 10:53
[2019-07-12 11:00] VITALS: BP 118/51
--- NOTE | 2019-07-12 14:13 | PDOC ---
Provider Note Provider Note Vascular S: Pt sleeping upon visit. RN reports he denies any pain. O:Sleeping HRR Non-labored respirations Dressings in place bilateral feet. Arterial US reviewed, left leg not well evaluated, right leg with normal waveforms until below the knee then monophasic. Previous arterial duplex from 06/27/19 at outside facility showed mild focal stenosis of lef mid SFA and normal velocities throughout right lower extremity. MRI with out osteomyelitis of left heel. Assessment/Plan: Right foot necrotic wounds Left heel wound with infection and cellulitis PAD POD#1 of left heel debridement and right foot debridement Reviewed arterial duplex from outside facility with Dr. Monsalve, we discussed patient case in detail. His PVD is mild on the left, the right leg with monophasic signals below the knee. We will need to give time for these wounds to heal. The left heel wound is unlikely to heal based on size, depth, location, pressure point, pts immobility - likely not salvageable but can give time. Will again attempt for arteriogram, will consult IR. Right leg is ideal to treat because left heel is likely not salvageable. Hopefully RN can get misbah of Saumya for consent. I attempted again to get misbah of her today without success. Wound care team to see pt today, place vac left heel, decide on wound vac/local wound care to right foot wounds. He needs to remain nonweight bearing left foot, can be full weight bearing right foot. Saumya Thompson [phone] (home), (cell). FRANCISCA BENJAMIN Jul 12, 2019 14:13
[2019-07-12 15:00] VITALS: BP 130/53
[2019-07-12] MEDS: MORPHINE SULFATE 2 MG/ML VIAL. IV PRN (15:40)
--- NOTE | 2019-07-12 16:08 | NUR ---
Wound Care: Follow up wound care s/p I&D of L heel, and R lateral foot wounds. No open areas noted to buttocks, or other skin areas. On P500 bed. Wounds pictured and measured (see detailed assessment. Foot wounds dressed with wound vac, one piece of black foam per wound (x3), and Y-tracked together. Set to 125mmhg/continuous. Pain medication administered by Jessica DOUGLAS prior to dressing change. Good seal achieved. Follow up Wednesday07/14/19
[2019-07-12 19:00] VITALS: BP 145/63
[2019-07-12] MEDS: CITALOPRAM 20 MG TABLET. PO SCH (20:53)
[2019-07-12] MEDS: FINASTERIDE 5 MG TABLET. PO SCH (20:54)
[2019-07-12] MEDS: MIRTAZAPINE 15 MG TABLET PO SCH (20:54)
[2019-07-12 23:00] VITALS: BP 128/45
[2019-07-13 03:00] VITALS: BP 140/47
[2019-07-13] MEDS: IV 1/2 NORMAL SALINE 1,000 ML IV SCH ×2 (06:06→08:20)
[2019-07-13] MEDS: LEVOTHYROXINE 137 MCG TABLET PO SCH (06:06)
[2019-07-13 07:00] VITALS: BP 164/64
[2019-07-13] MEDS: ALBUTEROL SULFATE 2.5 MG/3 ML NEBU. NEB SCH ×3 (07:09→19:48)
[2019-07-13] MEDS: INSULIN GLARGINE SYRINGE. SQ SCH (08:00)
[2019-07-13] MEDS: MEROPENEM 1 GM in IV NORMAL SALINE 100ML 100 ML IV SCH ×2 (08:20→21:06)
[2019-07-13] MEDS: MULTIVITAMIN with MINERAL TABLET. PO SCH (08:21)
[2019-07-13] MEDS: DIVALPROEX SPRINKLES 125 MG CAPSULE. PO SCH ×2 (08:21→21:05)
[2019-07-13] MEDS: LINEZOLID 600 MG TABLET PO SCH ×2 (08:21→21:06)
[2019-07-13] MEDS: LACTOBACILLUS RHAMNOSUS GG 1 CAPSULE. PO SCH ×2 (08:21→21:05)
[2019-07-13] MEDS: LINAGLIPTIN 5 MG TABLET PO SCH (08:21)
[2019-07-13] MEDS: DOCUSATE SODIUM 100 MG CAPSULE. PO SCH ×2 (08:21→21:05)
[2019-07-13] MEDS: FERROUS SULFATE 325 MG TABLET. PO SCH (08:21)
[2019-07-13] MEDS: NYSTATIN TOPICAL POWDER 15GM BOTTLE. TP SCH ×2 (08:22→21:00)
[2019-07-13 08:31] LABS: PROTHROMBIN TIME PATIENT 13.9 SEC (11.7-14.0)
--- NOTE | 2019-07-13 10:45 | PDOC ---
Infectious Disease Note Subjective Subjective Awakens and denied pain but did not answer any more questions Vital Sign Vital Signs Vital Signs Date Time Temp Pulse Resp B/P (MAP) Pulse Ox O2 Delivery O2 Flow Rate FiO2 07/13/19 07:24 Room Air 07/13/19 07:09 94 07/13/19 07:00 97.9 73 18 164/64 (97) 97.9 Physical Exam PHYSICAL EXAM GENERAL: Ppropped up in bed, resting quietly, arouses to name - HUGHES - states - no pain HEENT: OC/Op- clear but dry NECK: No JVD or swelling LUNGS: Clear to auscultation. HEART: S1, S2. ABDOMEN: Obese, soft, nontender with bowel sounds present A reducible hernia. GENITOURINARY: Indwelling Hubbard in place. Yeast in groin area better. EXTREMITIES: LLE edema and erythema - better. Foot wounds are dressed, bilaterally. Post op dressings SKIN: Warm to touch. NEUROLOGIC: awakes PIV Labs Lab Laboratory Tests Test 07/12/19 11:08 07/12/19 16:28 07/12/19 20:43 07/13/19 08:05 Glucose (Fingerstick) 106 mg/dL (70-99) 139 mg/dL (70-99) 174 mg/dL (70-99) Prothrombin Time 13.9 SEC (11.7-14.0) Prothromb Time International Ratio 1.1 (0.8-1.1) Test 07/13/19 08:19 Glucose (Fingerstick) 164 mg/dL (70-99) Micro Bacteroides fragilis 1+ AEROBIC CULT Preliminary Preliminary report AEROBIC RES 1 Preliminary Staphylococcus aureus Comment 4+ Methicillin - resistant Staphylococcus aureus 4+ Based on resistance to oxacillin this isolate would be resistant to all currently available beta-lactam antimicrobial agents, with the exception of the newer cephalosporins with anti-MRSA activity, such as Ceftaroline This isolate does not demonstrate inducible clindamycin resistance in vitro by D test. AEROBIC RES 2 Preliminary Gram negative rods Alcaligenes faecalis 4+ AEROBIC RES 3 Preliminary Mixed skin lala CONTINUED ON NEXT PAGE RUN DATE: 07/10/19 PAGE 2 RUN TIME: 18[address] [facility] [address] [place] [address] Ze Jaimes M.D., Racking Machine Operator --------- --- SPEC: [id number] PATIENT: SATINDER DELACRUZ [id number] (Continued) Procedure Result AEROBIC RES 3 Preliminary (continued) 4+ ANTIMICROBIAL SUSCEPTIBILITY Preliminary Comment S = Susceptible; I = Intermediate; R = Resistant P = Positive; N = Negative MICS are expressed in micrograms per mL Antibiotic RSLT#1 RSLT#2 RSLT#3 RSLT#4 Amikacin S<=2 Cefepime S =4 Cefotaxime S =4 Ceftazidime S =4 Ceftriaxone S<=1 Ciprofloxacin S =1 Gentamicin S =2 Imipenem S =4 Meropenem S =2 Tetracycline I =8 Ticarcillin I =64 Tobramycin S<=1 GRAM STAIN Final URINE CULTURE RES 1 Final Escherichia coli Greater than 100,000 colony forming units per mL Performed at: [facility], [place], [place] [id number] Head Waiter/Waitress Banquet: SB Ward MD, Phone: [phone] Greater than 100,000 colony forming units per mL Cefazolin <=4 ug/mL Cefazolin with an DENIS <=16 predicts susceptibility to the oral agents cefaclor, cefdinir, cefpodoxime, cefprozil, cefuroxime, cephalexin, and loracarbef when used for therapy of uncomplicated urinary tract infections due to E. coli, Klebsiella pneumoniae, and Proteus mirabilis. ANTIMICROBIAL SUSCEPTIBILITY Final Comment S = Susceptible; I = Intermediate; R = Resistant P = Positive; N = Negative MICS are expressed in micrograms per mL Antibiotic RSLT#1 RSLT#2 RSLT#3 RSLT#4 Amoxicillin/Clavulanic Acid S<=2 Ampicillin S =8 Cefepime S<=0.12 Ceftriaxone S<=0.25 Cefuroxime I =8 Ciprofloxacin R>=4 Ertapenem S<=0.12 Gentamicin S<=1 Imipenem S<=0.25 Levofloxacin R>=8 Meropenem S<=0.25 Nitrofurantoin I =64 Piperacillin/Tazobactam S<=4 CONTINUED ON NEXT PAGE RUN DATE: 07/09/19 PAGE 2 RUN TIME: 16[address] [facility] [address] [place] [address] Ze Jaimes M.D., Racking Machine Operator SPEC: [id number] PATIENT: SATINDER DELACRUZ Nida [id number] (Continued) Procedure Result ANTIMICROBIAL SUSCEPTIBILITY Final (continued) Tetracycline S =2 Tobramycin S<=1 Microbiology 07/05/19 Anaerobic/Aerobic Culture, Resulted Pending 07/05/19 Anaerobic Culture Result 1 (DENIS), Resulted Pending 07/05/19 Aerobic Culture, Resulted Pending 07/05/19 Aerobic Culture Result 1 (DENIS), Resulted Pending 07/05/19 Gram Stain - Final, Resulted 07/05/19 Gram Stain Result 1 (DENIS) - Final, Resulted 07/05/19 Gram Stain Result 2 (DENIS) - Final, Resulted 07/05/19 Urine Culture - Preliminary, Resulted 07/05/19 Urine Culture Result 1 (DENIS) - Preliminary, Resulted 07/05/19 Blood Culture - Preliminary, Resulted NO GROWTH AFTER 2 DAYS Objective Assessment Cellulitis left lower extremity S/p 1. Left heel sharp excisional debridement 7x7cm 2. Right lateral foot and ankle excisional debridement 2x2cm each wound 07/11 Necrotic wounds, bilateral feet MRSA/Alcaligenes/Bacteroides/Group B. XRAY right foot - no osteo -MRI shows no evidence osteo left -h/o MSSA infection UTI - Ecoli 07/05 Yeast in groin Diabetes with peripheral neuropathy PVD GOVIND Dementia, wheelchair bound Plan Plan of Care Aortogram today Continue Zyvox and Merrem for now Continue Nystatin powder f/u cultures Local wound care and offloading as directed Awaiting further Vascular recs. DM control per primary May need palliative eval D/w nursing RAUL EMMANUEL MD Jul 13, 2019 10:45
--- NOTE | 2019-07-13 10:51 | PN ---
DATE: 07/13/2019 DAILY PROGRESS NOTE LOCATION: Room 434. SUBJECTIVE: The patient is awake and alert this morning, sitting up in bed. Denies any specific complaints. OBJECTIVE: Vital signs are stable. He is afebrile. ____. He is awake, alert, confused, which is his baseline. LABORATORY DATA: Blood sugars have been good. INR is 1.1. Plan is for arteriogram today per Vascular Surgery. IMPRESSION: ____ cellulitis, left lower extremity with left heel excisional debridement, right lateral foot and ankle excisional debridement, status post during the stay bilateral feet with methicillin-resistant Staphylococcus aureus, Escherichia coli urinary tract infection, diabetes, dementia, peripheral arterial disease. PLAN: Continue present antibiotics. ID and Vascular Surgery help is appreciated. Intervention on blood vessels. DPOA approves the same. SHELLIE WILLIS MD DR: NILDA/radha JOB#: [id number] / [id number]
[2019-07-13 11:00] VITALS: BP 168/70
[2019-07-13 11:27] LABS: CALCIUM 8.5 mg/dL (8.5-10.1); CREATININE 1.3 mg/dL (0.7-1.3); GFR 52.5; POTASSIUM 4.9 mmol/L (3.5-5.1)
[2019-07-13 11:33] LABS: HEMATOCRIT 28.5 % (39.0-53.0); HEMOGLOBIN 9.3 g/dL (13.0-17.5); RED BLOOD COUNT 3.33 x10^6/uL (4.30-5.70); RED CELL DISTRIBUTION WIDTH 14.7 % (11.5-14.5); WHITE BLOOD COUNT 8.5 x10^3/uL (4.0-11.0)
[2019-07-13] MEDS ORDERED: IODIXANOL 320 MG/ML 100 ML VIAL. ONE (13:22)
[2019-07-13] MEDS ORDERED: LIDOCAINE WITH 8.4% SOD BICARB 3 ML DISP.SYRIN. ONE (13:23)
[2019-07-13 15:00] VITALS: BP 162/60
--- NOTE | 2019-07-13 15:51 | PDOC ---
PROGRESS NOTES Subjective Subjective None. Patient is asleep Objective Objective Vascular Surgery - POD#2 Left heel and right foot debridements Patient is asleep with unlabored respirations. I spoke with RN. The DPOA has provided consent to proceed with AARO. The patient is NPO for such procedure today. Once results are known, this will help to drive next steps in care and if arterial circulation can be improved to help wound healing. At this point, continue wound vac therapy to wounds. I have ordered CBC and BMP for today since contrast dye will be provided. Dr. Monsalve will provide further recommendations after procedure. Vital Signs Date Time Temp Pulse Resp B/P (MAP) Pulse Ox O2 Delivery O2 Flow Rate FiO2 07/13/19 12:10 94 Room Air 07/13/19 11:00 97.7 72 18 168/70 (102) 97.7 07/11/19 13:34 10 Intake and Output 07/13/19 06:59 Intake Total 2020 ml Output Total 250 ml Balance 1770 ml Intake Oral 220 ml IV Total 900 ml Other 900 ml Output Urine Total 250 ml # Bowel Movements 1 Assessment Assessment Problems Medical Problems: (1) Cellulitis in diabetic foot Status: Acute (2) Diabetic foot ulcer Status: Acute Comment Review of Relevant I have reviewed the following items nesha (where applicable) has been applied. Labs Laboratory Tests Test 07/11/19 16:48 07/11/19 21:03 07/12/19 07:33 07/12/19 11:08 Glucose (Fingerstick) 107 mg/dL (70-99) 110 mg/dL (70-99) 82 mg/dL (70-99) 106 mg/dL (70-99) Test 07/12/19 16:28 07/12/19 20:43 07/13/19 08:05 07/13/19 08:19 Glucose (Fingerstick) 139 mg/dL (70-99) 174 mg/dL (70-99) 164 mg/dL (70-99) White Blood Count 8.5 x10^3/uL (4.0-11.0) Red Blood Count 3.33 x10^6/uL (4.30-5.70) Hemoglobin 9.3 g/dL (13.0-17.5) Hematocrit 28.5 % (39.0-53.0) Mean Corpuscular Volume 86 fL (79-100) Mean Corpuscular Hemoglobin 28 pg (25-35) Mean Corpuscular Hemoglobin Concent 33 g/dL (31-37) Red Cell Distribution Width 14.7 % (11.5-14.5) Platelet Count 337 x10^3/uL (140-400) Prothrombin Time 13.9 SEC (11.7-14.0) Prothromb Time International Ratio 1.1 (0.8-1.1) Sodium Level 136 mmol/L (136-145) Potassium Level 4.9 mmol/L (3.5-5.1) Chloride Level 101 mmol/L (98-107) Carbon Dioxide Level 26 mmol/L (21-32) Anion Gap 9 (6-14) Blood Urea Nitrogen 18 mg/dL (8-26) Creatinine 1.3 mg/dL (0.7-1.3) Estimated GFR (Cockcroft-Gault) 52.5 Glucose Level 164 mg/dL (70-99) Calcium Level 8.5 mg/dL (8.5-10.1) Test 07/13/19 11:34 Glucose (Fingerstick) 164 mg/dL (70-99) Laboratory Tests Test 07/12/19 16:28 07/12/19 20:43 07/13/19 08:05 07/13/19 08:19 Glucose (Fingerstick) 139 mg/dL (70-99) 174 mg/dL (70-99) 164 mg/dL (70-99) White Blood Count 8.5 x10^3/uL (4.0-11.0) Red Blood Count 3.33 x10^6/uL (4.30-5.70) Hemoglobin 9.3 g/dL (13.0-17.5) Hematocrit 28.5 % (39.0-53.0) Mean Corpuscular Volume 86 fL (79-100) Mean Corpuscular Hemoglobin 28 pg (25-35) Mean Corpuscular Hemoglobin Concent 33 g/dL (31-37) Red Cell Distribution Width 14.7 % (11.5-14.5) Platelet Count 337 x10^3/uL (140-400) Prothrombin Time 13.9 SEC (11.7-14.0) Prothromb Time International Ratio 1.1 (0.8-1.1) Sodium Level 136 mmol/L (136-145) Potassium Level 4.9 mmol/L (3.5-5.1) Chloride Level 101 mmol/L (98-107) Carbon Dioxide Level 26 mmol/L (21-32) Anion Gap 9 (6-14) Blood Urea Nitrogen 18 mg/dL (8-26) Creatinine 1.3 mg/dL (0.7-1.3) Estimated GFR (Cockcroft-Gault) 52.5 Glucose Level 164 mg/dL (70-99) Calcium Level 8.5 mg/dL (8.5-10.1) Test 07/13/19 11:34 Glucose (Fingerstick) 164 mg/dL (70-99) Microbiology 07/11/19 Anaerobic/Aerobic Culture, Resulted Pending 07/11/19 Anaerobic Culture Result 1 (DENIS), Resulted Pending 07/11/19 Aerobic Culture - Preliminary, Resulted 07/11/19 Aerobic Culture Result 1 (DENIS) - Preliminary, Resulted 07/11/19 Gram Stain - Final, Resulted 07/11/19 Gram Stain Result 1 (DENIS) - Final, Resulted 07/11/19 Gram Stain Result 2 (DENIS) - Final, Resulted 07/05/19 Urine Culture - Final, Complete 07/05/19 Urine Culture Result 1 (DENIS) - Final, Complete 07/05/19 Antimicrobic Susceptibility - Final, Complete 07/05/19 Blood Culture - Final, Complete NO GROWTH AFTER 5 DAYS Medications Current Medications Cefepime HCl (Maxipime) 2 gm 1X ONCE IVP ; Start 07/05/19 at 20:00; Stop 07/05/19 at 20:01; Status Cancel Vancomycin HCl (Vanco Per Pharmacy) 1 each 1X ONCE MC ; Start 07/05/19 at 20:00; Stop 07/06/19 at 08:43; Status DC Cefepime HCl (Maxipime) 2 gm 1X ONCE IVP Last administered on 07/05/19at 20:01; Start 07/05/19 at 20:00; Stop 07/05/19 at 20:01; Status DC Vancomycin HCl 1.5 gm/Sodium Chloride 500 ml @ 250 mls/hr 1X ONCE IV Last administered on 07/05/19at 20:31; Start 07/05/19 at 20:30; Stop 07/05/19 at 22:29; Status DC Vancomycin HCl (Vanco Per Pharmacy) 1 each PRN DAILY PRN MC SEE COMMENTS Last administered on 07/05/19at 22:26; Start 07/05/19 at 20:30; Stop 07/06/19 at 08:43; Status DC Meropenem 1 gm/ Sodium Chloride 100 ml @ 200 mls/hr Q12HR IV Last administered on 07/13/19at 08:20; Start 07/06/19 at 09:00 Ondansetron HCl (Zofran) 4 mg PRN Q8HRS PRN IV NAUSEA/VOMITING; Start 07/05/19 at 21:15; Stop 07/06/19 at 21:14; Status DC Vancomycin HCl 1.25 gm/Sodium Chloride 250 ml @ 167 mls/hr Q24H IV ; Start 07/06/19 at 20:30; Stop 07/06/19 at 08:38; Status DC Vancomycin HCl (Vancomycin Trough Level) 1 each 1X ONCE MC ; Start 07/07/19 at 20:00; Stop 07/06/19 at 08:43; Status DC Albuterol Sulfate (Ventolin Neb Soln) 2.5 mg Q6HRS PRN NEB SHORTNESS OF BREATH; Start 07/06/19 at 00:15; Status UNV Cetirizine HCl (ZyrTEC) 10 mg DAILY PO ; Start 07/06/19 at 09:00; Status UNV Vitamin D (Vitamin D3) 1,000 unit DAILY PO ; Start 07/06/19 at 09:00; Status UNV Docusate Sodium (Colace) 100 mg BID PO ; Start 07/06/19 at 09:00; Status UNV Ferrous Sulfate (Feosol) 325 mg DAILY PO ; Start 07/06/19 at 09:00; Status UNV Finasteride (Proscar) 5 mg HS PO ; Start 07/06/19 at 21:00; Status UNV Gabapentin (Neurontin) 100 mg TID PO ; Start 07/06/19 at 09:00; Status UNV Levothyroxine Sodium (Synthroid) 137 mcg DAILY PO ; Start 07/06/19 at 09:00; Status UNV Linagliptin (Tradjenta) 5 mg DAILY PO ; Start 07/06/19 at 09:00; Status UNV Non-Formulary Medication (Fluticasone Propionate (Flonase Allergy Relief)) 2 sprays DAILY NS ; Start 07/06/19 at 09:00; Status UNV Non-Formulary Medication (Menthol (Biofreeze)) 118 ml QIDPRN PRN TP PAIN; S tart 07/06/19 at 00:15; Status UNV Non-Formulary Medication (Multivitamin (Multi-Day Vitamins)) 1 tab DAILY PO ; Start 07/06/19 at 09:00; Status UNV Acetaminophen (Tylenol) 325 mg PRN Q4HRS PRN PO FEVER; Start 07/06/19 at 01:15 Acetaminophen (Tylenol) 650 mg PRN Q4HRS PRN PO MILD PAIN 1-3 Last administered on 07/06/19 21:10; Start 07/06/19 at 04:00 Citalopram Hydrobromide (CeleXA) 20 mg HS PO Last administered on 07/12/19 20:53; Start 07/06/19 at 21:00 Cyanocobalamin (Vitamin B-12) 1,000 mcg QFR IM Last administered on 07/07/19at 19:15; Start 07/07/19 at 16:00 Divalproex Sodium (Depakote Sprinkles) 375 mg BID PO Last administered on 07/13/19 08:21; Start 07/06/19 at 09:00 Mirtazapine (Remeron) 15 mg QHS PO Last administered on 07/12/19 20:54; Start 07/06/19 at 21:00 Nitroglycerin (Nitrostat) 0.4 mg PRN Q5MIN PRN SL CHEST PAIN; Start 07/06/19 at 01:15 Nystatin (Nystop) 1 geoff BID TP Last administered on 07/13/19 08:22; Start 07/06/19 at 09:00 Non-Formulary Medication (Insulin Detemir (Levemir)) 22 unit DAILYWBKFT SQ ; Start 07/06/19 at 08:00; Status UNV Lactobacillus Rhamnosus (Culturelle) 1 cap BID PO Last administered on 07/13/19 08:21; Start 07/06/19 at 09:00 Risperidone (RisperDAL) 0.5 mg QHS PO Last administered on 07/07/19 21:21; Start 07/06/19 at 21:00; Stop 07/08/19 at 10:36; Status DC Insulin Glargine (Lantus Syringe) 22 unit DAILYWBKFT SQ Last administered on 07/06/19at 09:14; Start 07/06/19 at 08:00; Stop 07/07/19 at 09:02; Status DC Albuterol Sulfate (Ventolin Neb Soln) 2.5 mg Q6HRS NEB Last administered on 07/13/19at 12:10; Start 07/06/19 at 06:00 Cetirizine HCl (ZyrTEC) 10 mg DAILY PO ; Start 07/06/19 at 09:00; Stop 07/06/19 at 08:43; Status DC Vitamin D (Vitamin D3) 1,000 unit DAILY PO Last administered on 07/06/19 08:59; Start 07/06/19 at 09:00; Stop 07/07/19 at 09:02; Status DC Docusate Sodium (Colace) 100 mg BID PO Last administered on 07/13/19at 08:21; Start 07/06/19 at 09:00 Ferrous Sulfate (Feosol) 325 mg DAILY PO Last administered on 07/13/19 08:21; Start 07/06/19 at 09:00 Finasteride (Proscar) 5 mg QHS PO Last administered on 07/12/19at 20:54; Start 07/06/19 at 21:00 Fluticasone Propionate (Flonase) 2 spray QHS NS ; Start 07/06/19 at 21:00; Stop 07/06/19 at 08:43; Status DC Gabapentin (Neurontin) 100 mg PRN TID PRN PO neurogenic pain management; Start 07/06/19 at 04:00; Stop 07/06/19 at 08:44; Status DC Levothyroxine Sodium (Synthroid) 137 mcg DAILY06 PO Last administered on 07/13/19 06:06; Start 07/06/19 at 06:00 Linagliptin (Tradjenta) 5 mg DAILY PO Last administered on 07/13/19 08:21; Start 07/06/19 at 09:00 Calcium/Vitamin D (Oscal D 500mg/ 200uts) 1 tab BIDWMEALS PO ; Start 07/06/19 at 08:00; Stop 07/07/19 at 09:02; Status DC Non-Formulary Medication (Menthol (Biofreeze)) 118 ml Q6HRS TP ; Start 07/06/19 at 06:00; Stop 07/06/19 at 06:41; Status DC Multivitamins (Thera M Plus) 1 tab DAILY PO Last administered on 07/13/19at 08:21; Start 07/06/19 at 09:00 Info (FLU VACCINE SCREEN per RX) 1 each 1X ONCE MC ; Start 07/06/19 at 08:15; Stop 07/06/19 at 08:16; Status UNV Pharmacy Consult (C.diff Med Screen By Rx) 1 each 1X ONCE MC ; Start 07/06/19 at 08:15; Stop 07/06/19 at 08:16; Status UNV Influenza Virus Vaccine Quadrival (Afluria Quad 2019-20 (3yr Up) Syringe) 0.5 ml ONCE ONCE VAX IM Last administered on 07/06/19at 09:03; Start 07/06/19 at 09:00; Stop 07/06/19 at 09:01; Status DC Linezolid (Zyvox) 600 mg BID PO Last administered on 07/13/19at 08:21; Start 07/06/19 at 09:00 Dextrose/Sodium Chloride 1,000 ml @ 100 mls/hr Q10H IV Last administered on 07/07/19at 05:41; Start 07/06/19 at 09:00; Stop 07/08/19 at 10:36; Status DC Insulin Glargine (Lantus Syringe) 30 unit DAILYWBKFT SQ ; Start 07/08/19 at 08:00; Stop 07/08/19 at 10:36; Status DC Insulin Glargine (Lantus Syringe) 8 unit 1X ONCE SQ Last administered on 07/07/19at 10:03; Start 07/07/19 at 09:15; Stop 07/07/19 at 09:16; Status DC Insulin Glargine (Lantus Syringe) 50 unit DAILYWBKFT SQ Last administered on 07/08/19at 11:25; Start 07/08/19 at 11:00; Stop 07/09/19 at 09:58; Status DC Dextrose/Sodium Chloride 1,000 ml @ 75 mls/hr [id number] IV ; Start 07/08/19 at 10:30; Stop 07/08/19 at 10:40; Status DC Insulin Human Lispro (HumaLOG) 10 units PRN Q6HRS PRN SQ LOW BLOOD SUGAR Last administered on 07/10/19at 22:19; Start 07/08/19 at 10:45 Sodium Chloride 1,000 ml @ 75 mls/hr [id number] IV Last administered on 07/13/19at 08:20; Start 07/08/19 at 10:45 Dextrose (Dextrose 50%-Water Syringe) 12.5 gm PRN Q15MIN PRN IV SEE COMMENTS Last administered on 07/11/19at 09:58; Start 07/08/19 at 23:00 Insulin Glargine (Lantus Syringe) 40 unit DAILYWBKFT SQ Last administered on 07/10/19at 12:36; Start 07/09/19 at 10:00 Morphine Sulfate (Morphine Sulfate) 1 mg PRN Q10MIN PRN IV SEVERE PAIN 7-10; Start 07/11/19 at 07:00; Stop 07/12/19 at 06:59; Status DC Ringer's Solution 1,000 ml @ 30 mls/hr Q24H IV Last administered on 07/11/19at 10:49; Start 07/11/19 at 07:00; Stop 07/11/19 at 18:59; Status DC Lidocaine HCl (Xylocaine-Mpf 1% 2ml Vial) 2 ml PRN 1X PRN ID PRIOR TO IV START; Start 07/11/19 at 07:00; Stop 07/12/19 at 06:59; Status DC Hydromorphone HCl (Dilaudid) 0.5 mg PRN Q10MIN PRN IV SEV PAIN, Second choice; Start 07/11/19 at 07:00; Stop 07/12/19 at 06:59; Status DC Prochlorperazine Edisylate (Compazine) 5 mg PACU PRN PRN IV NAUSEA, MRX1; Start 07/11/19 at 07:00; Stop 07/12/19 at 06:59; Status DC Cefazolin Sodium 1 gm/Sodium Chloride 500 ml @ 500 mls/hr 1X ONCE IRR Last administered on 07/11/19at 12:42; Start 07/11/19 at 06:00; Stop 07/11/19 at 06:59; Status DC Propofol 20 ml @ As Directed STK-MED ONCE IV ; Start 07/11/19 at 11:37; Stop 07/11/19 at 11:37; Status DC Lidocaine HCl (Lidocaine Pf 2% Vial) 5 ml STK-MED ONCE .ROUTE ; Start 07/11/19 at 11:37; Stop 07/11/19 at 11:37; Status DC Ketamine HCl (Ketamine) 50 mg STK-MED ONCE .ROUTE ; Start 07/11/19 at 12:26; Stop 07/11/19 at 12:26; Status DC Acetaminophen/ Hydrocodone Bitart (Lortab 5/325) 1 tab PRN Q6HRS PRN PO MODERATE PAIN; Start 07/11/19 at 12:30 Morphine Sulfate (Morphine Sulfate) 1 mg PRN Q3HRS PRN IV PAIN Last administered on 07/12/19at 15:40; Start 07/11/19 at 12:30 Lidocaine HCl (Xylocaine 1% Pf 30ml Vial) 30 ml STK-MED ONCE .ROUTE ; Start 07/11/19 at 12:33; Stop 07/11/19 at 12:34; Status DC Phenylephrine HCl (PHENYLEPHRINE in 0.9% NACL PF) 1 mg STK-MED ONCE IV ; Start 07/11/19 at 12:46; Stop 07/11/19 at 12:46; Status DC Sevoflurane (Ultane) 15 ml STK-MED ONCE IH ; Start 07/11/19 at 12:46; Stop 07/11/19 at 12:46; Status DC Ephedrine Sulfate (Akovaz) 50 mg STK-MED ONCE .ROUTE ; Start 07/11/19 at 12:50; Stop 07/11/19 at 12:50; Status DC Influenza Virus Vaccine Quadrival (Afluria Quad 2019-20 (3yr Up) Syringe) 0.5 ml ONCE ONCE VAX IM Last administered on 07/12/19at 09:10; Start 07/12/19 at 08:00; Stop 07/12/19 at 08:01; Status DC Iodixanol (Visipaque 320) 100 ml STK-MED ONCE .ROUTE ; Start 07/13/19 at 13:22; Stop 07/13/19 at 13:23; Status DC Lidocaine HCl (Buffered Lidocaine 1%) 3 ml STK-MED ONCE .ROUTE ; Start 07/13/19 at 13:23; Stop 07/13/19 at 13:23; Status DC Heparin Sodium/ Sodium Chloride 500 ml @ As Directed STK-MED ONCE .ROUTE ; Start 07/13/19 at 13:23; Stop 07/13/19 at 13:23; Status DC Ondansetron HCl (Zofran) 4 mg PRN Q6HRS PRN IV NAUSEA/VOMITING; Start 07/14/19 at 07:00; Stop 07/14/19 at 20:00 Fentanyl Citrate (Fentanyl 2ml Vial) 25 mcg PRN Q5MIN PRN IV MILD PAIN 1-3; Start 07/14/19 at 07:00; Stop 07/14/19 at 20:00 Fentanyl Citrate (Fentanyl 2ml Vial) 50 mcg PRN Q5MIN PRN IV MODERATE TO SEVERE PAIN; Start 07/14/19 at 07:00; Stop 07/14/19 at 20:00 Morphine Sulfate (Morphine Sulfate) 1 mg PRN Q10MIN PRN IV SEVERE PAIN 7-10; Start 07/14/19 at 07:00; Stop 07/14/19 at 20:00 Ringer's Solution 1,000 ml @ 30 mls/hr Q24H IV ; Start 07/14/19 at 07:00; Stop 07/14/19 at 18:59 Lidocaine HCl (Xylocaine-Mpf 1% 2ml Vial) 2 ml PRN 1X PRN ID PRIOR TO IV START; Start 07/14/19 at 07:00; Stop 07/14/19 at 20:00 Hydromorphone HCl (Dilaudid) 0.5 mg PRN Q10MIN PRN IV SEV PAIN, Second choice; Start 07/14/19 at 07:00; Stop 07/14/19 at 20:00 Prochlorperazine Edisylate (Compazine) 5 mg PACU PRN PRN IV NAUSEA, MRX1; Start 07/14/19 at 07:00; Stop 07/14/19 at 20:00 Active Scripts Active Keflex (Cephalexin) 500 Mg Capsule 1 Cap PO TID Reported Multivitamins (Multivitamin) 1 Each Tablet 1 Tab PO DAILY Tradjenta (Linagliptin) 5 Mg Tablet 5 Mg PO DAILY Levothyroxine Sodium 137 Mcg Tablet 1 Tab PO DAILY Gabapentin (Gabapentin) 100 Mg Capsule 100 Mg PO TID PRN Fluticasone Propionate Nasal Emmett (Fluticasone Propionate) 16 Gm Emmett.susp 2 Emmett NS QHS Finasteride 5 Mg Tablet 5 Mg PO QHS Ferrous Sulfate 325 Mg Tablet 1 Tab PO DAILY Docusate Sodium 100 Mg Capsule 1 Cap PO BID Vitamin D3 (Cholecalciferol (Vitamin D3)) 1,000 Unit Tablet 1 Tab PO DAILY Cetirizine Hcl 10 Mg Tablet 1 Tab PO DAILY Calcium + Vitamin D Tablet (Calcium Carbonate/Vitamin D3) 1 Each Tablet 1 Each PO BID Biofreeze (Menthol) 118 Ml Gel..ml. 118 Ml TP Q6HRS Albuterol Sulfate Neb Soln (Albuterol Sulfate) 2.5 Mg/3 Ml Vial.neb 1 Vial NEB Q6HRS Tylenol (Acetaminophen) 325 Mg Tablet 650 Mg PO Q4HRS Tylenol (Acetaminophen) 325 Mg Tablet 1 Tab PO PRN Q4HRS Risperdal (Risperidone) 0.5 Mg Tablet 0.5 Mg PO QHS Nystatin 15 Gm Powder 1 Geoff TP BID NITROGLYCERIN SubLingual (Nitroglycerin) 0.4 Mg Tab.subl 0.4 Mg SL PRN Q5MIN PRN Mirtazapine 15 Mg Tablet 1 Tab PO QHS Culturelle (Lactobacillus Rhamnosus Gg) 1 Each Capsule 1 Each PO BID Levemir (Insulin Detemir) 100 Unit/1 Ml Vial 22 Unit SQ DAILYWBKFT Depakote Sprinkle (Divalproex Sodium) 125 Mg Cap.sprink 375 Mg PO BID Cyanocobalamin Injection (Cyanocobalamin (Vitamin B-12)) 1,000 Mcg/1 Ml Vial 1 Ml IM QFR Citalopram Hbr (Citalopram Hydrobromide) 20 Mg Tablet 1 Tab PO HS Gabapentin (Gabapentin) 100 Mg Capsule 100 Mg PO TID Flonase Allergy Relief (Fluticasone Propionate) 9.9 Ml Emmett.susp 2 Sprays NS DAILY Biofreeze (Menthol) 118 Ml Gel..ml. 118 Ml TP QIDPRN PRN Tradjenta (Linagliptin) 5 Mg Tablet 5 Mg PO DAILY Lisinopril 10 Mg Tablet 1 Tab PO DAILY Zyrtec (Cetirizine Hcl) 10 Mg Tablet 1 Tab PO DAILY Xarelto (Rivaroxaban) 15 Mg Tablet 15 Mg PO DAILY Vitamin D3 (Cholecalciferol (Vitamin D3)) 1,000 Unit Tablet 1 Tab PO DAILY Levothyroxine Sodium 137 Mcg Tablet 1 Tab PO DAILY Levemir Flextouch (Insulin Detemir) 100 Unit/1 Ml Insuln.pen 25 Unit SQ AM Multi-Day Vitamins (Multivitamin) 1 Each Tablet 1 Tab PO DAILY Miralax (Polyethylene Glycol 3350) 17 Gm Powd.pack 1 Packet PO DAILY Levemir Flexpen (Insulin Detemir) 100 Unit/1 Ml Insuln.pen 8 Unit SQ HS Albuterol Sulfate Neb Soln (Albuterol Sulfate) 2.5 Mg/3 Ml Vial.neb 2.5 Mg IH Q6HRS PRN Acetaminophen 325 Mg Tablet 325 Mg PO Q4HRS PRN Finasteride 5 Mg Tablet 5 Mg PO HS Colace (Docusate Sodium) 100 Mg Capsule 100 Mg PO BID Calcium + Vitamin D Tablet (Calcium Carbonate/Vitamin D3) 1 Each Tablet 500,200 Each PO BID Ferrous Sulfate 325 Mg Tablet 325 Mg PO DAILY Amlodipine Besylate 5 Mg Tablet 5 Mg PO DAILY Vitamin D3 1,000 Unit Tablet (Ca Cmb No.1/Vit D3/B-6/Fa/B12) 1 Each Tablet 1 Each PO DAILY Vitals/I & O Vital Sign - Last 24 Hours 07/12/19 07/12/19 07/12/19 07/12/19 16:09 19:00 19:39 19:50 Temp 98.8 98.8 Pulse 75 Resp 16 B/P (MAP) 145/63 (90) Pulse Ox 94 96 O2 Delivery Room Air Room Air Room Air Room Air 07/12/19 07/12/19 07/13/19 07/13/19 23:00 23:25 03:00 07:00 Temp 98.3 98.0 97.9 98.3 98.0 97.9 Pulse 73 69 73 Resp 16 16 18 B/P (MAP) 128/45 (72) 140/47 (78) 164/64 (97) Pulse Ox 93 95 96 95 O2 Delivery Room Air Room Air Room Air Room Air 07/13/19 07/13/19 07/13/19 07/13/19 07:09 07:24 11:00 12:10 Temp 97.7 97.7 Pulse 72 Resp 18 B/P (MAP) 168/70 (102) Pulse Ox 94 95 94 O2 Delivery Room Air Room Air Room Air Room Air l Intake and Output 07/12/19 07/12/19 07/13/19 14:59 22:59 06:59 Intake Total 120 ml 1900 ml Output Total 250 ml Balance -250 ml 120 ml 1900 ml OLMAN KINSEY APRN Jul 13, 2019 15:51
[2019-07-13] MEDS ORDERED: CONTRAST GIVEN. MC PRN (16:15)
[2019-07-13 19:25] VITALS: BP 153/49
[2019-07-13] MEDS: CITALOPRAM 20 MG TABLET. PO SCH (21:05)
[2019-07-13] MEDS: FINASTERIDE 5 MG TABLET. PO SCH (21:05)
[2019-07-13] MEDS: MIRTAZAPINE 15 MG TABLET PO SCH (21:06)
[2019-07-13] MEDS ORDERED: INSULIN LISPRO 300 UNITS/3 ML VIAL. SQ ONE (22:15)
[2019-07-13 23:37] VITALS: BP 148/56
[2019-07-14] VITALS (11 sets, daily range): BP systolic 101–143; BP diastolic 42–78
[2019-07-14] MEDS: ALBUTEROL SULFATE 2.5 MG/3 ML NEBU. NEB SCH ×4 (00:24→19:38)
[2019-07-14] MEDS: IV 1/2 NORMAL SALINE 1,000 ML IV SCH ×3 (05:09→14:50)
[2019-07-14] MEDS: LEVOTHYROXINE 137 MCG TABLET PO SCH (06:00)
[2019-07-14] MEDS ORDERED: LIDOCAINE 1% PF 2 ML VIAL. ID PRN (07:00)
[2019-07-14] MEDS ORDERED: fentaNYL PF VIAL 100 MCG/2 ML VIAL IV PRN ×2 (07:00)
[2019-07-14] MEDS ORDERED: IV RINGERS,LACTATED 1000ML 1,000 ML IV SCH (07:00)
[2019-07-14] MEDS ORDERED: ONDANSETRON PF 4 MG/2 ML VIAL. IV PRN (07:00)
[2019-07-14] MEDS ORDERED: HYDROmorphone 2 MG/ML VIAL IV PRN (07:00)
[2019-07-14] MEDS ORDERED: PROCHLORPERAZINE 10 MG/2 ML VIAL. IV PRN (07:00)
[2019-07-14] MEDS ORDERED: MORPHINE SULFATE 2 MG/ML VIAL. IV PRN (07:00)
[2019-07-14] MEDS: LINAGLIPTIN 5 MG TABLET PO SCH (07:47)
[2019-07-14] MEDS: MULTIVITAMIN with MINERAL TABLET. PO SCH (07:47)
[2019-07-14] MEDS: LINEZOLID 600 MG TABLET PO SCH ×2 (07:47→22:21)
[2019-07-14] MEDS: LACTOBACILLUS RHAMNOSUS GG 1 CAPSULE. PO SCH ×2 (07:47→22:21)
[2019-07-14] MEDS: FERROUS SULFATE 325 MG TABLET. PO SCH (07:47)
[2019-07-14] MEDS: DOCUSATE SODIUM 100 MG CAPSULE. PO SCH ×2 (07:47→22:21)
[2019-07-14] MEDS: DIVALPROEX SPRINKLES 125 MG CAPSULE. PO SCH ×2 (07:47→22:21)
[2019-07-14] MEDS: MEROPENEM 1 GM in IV NORMAL SALINE 100ML 100 ML IV SCH ×2 (07:49→22:01)
[2019-07-14] MEDS: NYSTATIN TOPICAL POWDER 15GM BOTTLE. TP SCH ×2 (07:50→21:00)
[2019-07-14] MEDS: INSULIN GLARGINE SYRINGE. SQ SCH (08:00)
--- NOTE | 2019-07-14 08:25 | PN ---
DATE: 07/14/2019 LOCATION: He is in room 434. SUBJECTIVE: The patient is less responsive today, but denies any complaints. They were unable to do the arteriogram yesterday due to leg contractures and Anesthesia is going to help today to get this done. Hemoglobin this morning is 9.3. Sugars have been for the most part good with him being high last night. OBJECTIVE: VITAL SIGNS: Stable. He is afebrile. CHEST: Clear. HEART: Regular. ABDOMEN: Benign. EXTREMITIES: Legs are bandaged. IMPRESSION: 1. Diabetic foot ulcers, status post debridement. 2. Peripheral arterial disease. 3. Dementia. PLAN: Arteriogram today with plans to follow as far as further intervention. SHELLIE WILLIS MD DR: NILDA/radha JOB#: [id number] / [id number]
--- NOTE | 2019-07-14 09:53 | PDOC ---
Infectious Disease Note Subjective Subjective Awakens but nonverbal ROS ROS unable to obtain Vital Sign Vital Signs Vital Signs Date Time Temp Pulse Resp B/P (MAP) Pulse Ox O2 Delivery O2 Flow Rate FiO2 07/14/19 07:28 95 Room Air 07/14/19 07:00 98.1 79 16 117/51 (73) 98.1 Physical Exam PHYSICAL EXAM GENERAL: Ppropped up in bed, resting quietly, comfortable. [place] HEENT: OC/Op- clear but dry NECK: No JVD or swelling LUNGS: Clear to auscultation. HEART: S1, S2. ABDOMEN: Obese, soft, nontender with bowel sounds present A reducible hernia. GENITOURINARY: Indwelling Hubbard in place. Yeast in groin area better. EXTREMITIES: LLE edema and erythema - better. Foot wounds are dressed, bilaterally. Post op dressings SKIN: Warm to touch - no Rash. NEUROLOGIC: awakes briefly PIV Labs Lab Laboratory Tests Test 07/13/19 11:34 07/13/19 16:38 07/13/19 21:23 07/14/19 08:02 Glucose (Fingerstick) 164 mg/dL (70-99) 241 mg/dL (70-99) 384 mg/dL (70-99) 182 mg/dL (70-99) Micro Bacteroides fragilis 1+ AEROBIC CULT Preliminary Preliminary report AEROBIC RES 1 Preliminary Staphylococcus aureus Comment 4+ Methicillin - resistant Staphylococcus aureus 4+ Based on resistance to oxacillin this isolate would be resistant to all currently available beta-lactam antimicrobial agents, with the exception of the newer cephalosporins with anti-MRSA activity, such as Ceftaroline This isolate does not demonstrate inducible clindamycin resistance in vitro by D test. AEROBIC RES 2 Preliminary Gram negative rods Alcaligenes faecalis 4+ AEROBIC RES 3 Preliminary Mixed skin lala CONTINUED ON NEXT PAGE RUN DATE: 07/10/19 PAGE 2 RUN TIME: 181 [facility] [address] [place] [address] Ze Jaimes M.D., Safety Trainer SPEC: [id number] PATIENT: SATINDER DELACRUZ [id number] (Continued) ---- -------- Procedure Result AEROBIC RES 3 Preliminary (continued) 4+ ANTIMICROBIAL SUSCEPTIBILITY Preliminary Comment S = Susceptible; I = Intermediate; R = Resistant P = Positive; N = Negative MICS are expressed in micrograms per mL Antibiotic RSLT#1 RSLT#2 RSLT#3 RSLT#4 Amikacin S<=2 Cefepime S =4 Cefotaxime S =4 Ceftazidime S =4 Ceftriaxone S<=1 Ciprofloxacin S =1 Gentamicin S =2 Imipenem S =4 Meropenem S =2 Tetracycline I =8 Ticarcillin I =64 Tobramycin S<=1 GRAM STAIN Final URINE CULTURE RES 1 Final Escherichia coli Greater than 100,000 colony forming units per mL Performed at: DA - [facility] [address], [place], [place] [id number] Account Services Manager: SB Ward MD, Phone: [phone] Greater than 100,000 colony forming units per mL Cefazolin <=4 ug/mL Cefazolin with an DENIS <=16 predicts susceptibility to the oral agents cefaclor, cefdinir, cefpodoxime, cefprozil, cefuroxime, cephalexin, and loracarbef when used for therapy of uncomplicated urinary tract infections due to E. coli, Klebsiella pneumoniae, and Proteus mirabilis. ANTIMICROBIAL SUSCEPTIBILITY Final Comment S = Susceptible; I = Intermediate; R = Resistant P = Positive; N = Negative MICS are expressed in micrograms per mL Antibiotic RSLT#1 RSLT#2 RSLT#3 RSLT#4 Amoxicillin/Clavulanic Acid S<=2 Ampicillin S =8 Cefepime S<=0.12 Ceftriaxone S<=0.25 Cefuroxime I =8 Ciprofloxacin R>=4 Ertapenem S<=0.12 Gentamicin S<=1 Imipenem S<=0.25 Levofloxacin R>=8 Meropenem S<=0.25 Nitrofurantoin I =64 Piperacillin/Tazobactam S<=4 CONTINUED ON NEXT PAGE RUN DATE: 07/09/19 PAGE 2 RUN TIME: 1612 [facility] [address] [place] [address] Ze Jaimes M.D., Safety Trainer SPEC: [id number] PATIENT: JAYMESATINDER Nida [id number] (Continued) Procedure Result -- ANTIMICROBIAL SUSCEPTIBILITY Final (continued) Tetracycline S =2 Tobramycin S<=1 Microbiology 07/05/19 Anaerobic/Aerobic Culture, Resulted Pending 07/05/19 Anaerobic Culture Result 1 (DENIS), Resulted Pending 07/05/19 Aerobic Culture, Resulted Pending 07/05/19 Aerobic Culture Result 1 (DENIS), Resulted Pending 07/05/19 Gram Stain - Final, Resulted 07/05/19 Gram Stain Result 1 (DENIS) - Final, Resulted 07/05/19 Gram Stain Result 2 (DENIS) - Final, Resulted 07/05/19 Urine Culture - Preliminary, Resulted 07/05/19 Urine Culture Result 1 (DENIS) - Preliminary, Resulted 07/05/19 Blood Culture - Preliminary, Resulted NO GROWTH AFTER 2 DAYS Objective Assessment Cellulitis left lower extremity S/p 1. Left heel sharp excisional debridement 7x7cm - Staph aureus 07/11 2. Right lateral foot and ankle excisional debridement 2x2cm each wound 07/11 Necrotic wounds, bilateral feet MRSA/Alcaligenes/Bacteroides/Group B. XRAY right foot - no osteo -MRI shows no evidence osteo left -h/o MSSA infection UTI - Ecoli 07/05 Yeast in groin Diabetes with peripheral neuropathy PVD GOVIND Dementia, wheelchair bound Plan Plan of Care Await Aortogram today - not done 07/13 sec to contractures - to get anaesthesia today Continue Zyvox and Merrem for now Continue Nystatin powder f/u cultures from 07/11 Local wound care and offloading as directed Awaiting further Vascular recs. DM control per primary May need palliative eval D/w nursing RAUL EMMANUEL MD Jul 14, 2019 09:53
--- NOTE | 2019-07-14 10:21 | NUR ---
SS following up with discharge planning. Updates phoned and faxed to [facility], ; fax [phone]. Pt getting aortogram today. Pt is able to return to [facility] when medically stable for discharge. SS will continue to follow for discharge planning.
[2019-07-14] MEDS ORDERED: PROPOFOL 100 ML IV ONE (12:04)
[2019-07-14] MEDS ORDERED: KETAMINE HCL IN NACL, ISO-OSM 50 MG/5 ML SYRINGE ONE (12:27)
[2019-07-14] MEDS ORDERED: HEPARIN for ARTERIAL LINE 1,500 ML ONE (12:30)
[2019-07-14] MEDS ORDERED: LIDOCAINE WITH 8.4% SOD BICARB 3 ML DISP.SYRIN. ONE (12:30)
[2019-07-14] MEDS ORDERED: IODIXANOL 320 MG/ML 100 ML VIAL. ONE (12:30)
--- NOTE | 2019-07-14 12:52 | PDOC ---
Provider Note Provider Note Vascular Surgery - POD#3 Left heel and right foot debridements Unable to perform angio yesterday due to contractures. Will try again today with general anesthesia VSS, afebrile Respirations nonlabored Wound vac bilateral feet removed. Left heel with brown unhealthy fatty tissue to majority of wound base, there is healthy pink granulation tissue along the wound edges. Right lateral foot wound with firbin slough to wound base, minimal granulation tissue. Wound near ankle is about 50/50 granulation tissue/fibrin slough base. There are no signs of active infection bilaterally. Bilateral knee flexion contractures. Cr 1.3 today PAD with bilateral food wounds - For arteriogram today. Will follow up with results and further recommendations - Left heel wound with poor signs of healing, likely not be salvageable. Can continue to try vac therapy and give some time. Will likely require more proximal amputation, with bilateral flexion contractures would likely require AKA. - Continue wound vac therapy to wounds, will discuss with Wound care team. He may benefit from veraflo while inpatient. FRANCISCA BENJAMIN Jul 14, 2019 12:52
[2019-07-14] MEDS ORDERED: HEPARIN for IV BOLUS 10,000 UNIT/10 ML VIAL. ONE (13:04)
[2019-07-14] MEDS ORDERED: HEPARIN for IV BOLUS 10,000 UNIT/10 ML VIAL. IV ONE (13:15)
[2019-07-14] MEDS ORDERED: LIDOCAINE WITH 8.4% SOD BICARB 3 ML DISP.SYRIN. IJ ONE (13:15)
[2019-07-14] MEDS ORDERED: IODIXANOL 320 MG/ML 100 ML VIAL. IART ONE (13:15)
[2019-07-14] MEDS ORDERED: INSULIN LISPRO 100 UNIT/ML 3ML VIAL for OP,RR ONLY. SQ PRN (14:30)
--- NOTE | 2019-07-14 15:51 | RAD ---
07/14/2019 1:33 PM Procedure: 1. Abdominal aortogram 2. Pelvic angiography 3. Right lower extremity angiography 4. Angioplasty of the right posterior tibial artery and lateral plantar artery Clinical Indication: Aortogram BL runoff w. Possible right leg intervention. Discussion: The procedure was explained in its entirety to the patient or the patients designated retention representative by a member of the treatment team, including a discussion of the risks, benefits and commonly accepted alternatives to the procedure, as well as the expected consequences of no therapy whatsoever. Discussion of the risks included, but was not limited to, those that are most frequent and those that are rare but possibly severe or life-threatening, as well as the possibility of unforeseen complications. All elements of maximal sterile barrier technique including the use of a cap, mask, sterile gown, sterile gloves, large sterile sheet, appropriate hand hygiene, and 2% chlorhexidine for cutaneous antisepsis (or acceptable alternative antiseptic per current guidelines) were followed for this procedure. The left groin was prepped and draped using maximum sterile barrier technique. 1% lidocaine was administered for local anesthesia. Ultrasound evaluation demonstrates patent left common femoral artery. The artery was accessed under direct ultrasound guidance using micropuncture technique. Fluoroscopic visualization was also used. Reference ultrasound images were saved the medical record. A 5 Maltese vascular sheath was placed. The catheter was advanced into the abdominal aorta. Abdominal angiography was performed. No aneurysm or flow-limiting stenosis is seen. Visualized portions of major vessel arteries are unremarkable. Catheter was repositioned pelvic angiography was performed. No significant aortoiliac stenosis is seen. The catheter was positioned in the right common femoral artery. Right lower extremity angiography was performed. Right common femoral artery, profunda artery, popliteal artery are grossly patent. The anterior tibial artery is patent. The dorsalis pedis artery is small but patent. The peroneal artery is patent. Tibial peroneal trunk is patent. Multiple high-grade stenoses/occlusions of the posterior tibial artery seen extending into the lateral plantar artery overlying the calcaneus. Given presence of a healed wound, intervention was deemed warranted. Up and over vascular sheath was placed. A wire was advanced into the lateral plantar artery. Angioplasty of the posterior tibial artery and lateral plantar artery performed with a 2 mm x 200 m balloon. Following angiography significantly improved morphology and flow was seen through the target lesion. Patient tolerated the procedure well without immediate complication. The sheath was removed. A minx device was used to achieve hemostasis in left common femoral puncture site. No immediate complications were identified. Sterile dressings were applied. Total fluoroscopy time: 17.4 min Dose area product: 154 Gycm2 Anesthesia: Provided by the anesthesia department. Impression: 1. No significant aortoiliac stenosis 2. No significant femoropopliteal stenosis 3. Multiple high-grade stenoses of the posterior tibial artery and lateral plantar artery treated with balloon angioplasty as described
--- NOTE | 2019-07-14 16:28 | NUR ---
Wound Care: Follow up wound care s/p I&D of L heel, and R lateral foot wounds. Wounds cleansed and assessed. Patient given pain medication. Skin prepped and Foot wounds dressed with wound vac, one piece of black foam to left heel with a good seal maintained at 125mmHg continuous. Skin prepped and an ostomy ring placed to brittany-wound on right lateral ankle and right foot, 1 piece of Veraflo black foam placed to each wound and tracked to the right dorsal foot with settings of 8mL for 5 minutes every 4 hours. Good seal maintained. Patient s/p Arteriogram so patient unable to turn or elevate for further assessment. Follow up Wednesday07/17/19 for dressing change.
[2019-07-14] MEDS: CYANOCOBALAMIN (VITAMIN B-12) 1,000 MCG/ML VIAL IM SCH (18:23)
[2019-07-14] MEDS: MORPHINE SULFATE 2 MG/ML VIAL. IV PRN (18:40)
[2019-07-14] MEDS: CITALOPRAM 20 MG TABLET. PO SCH (22:21)
[2019-07-14] MEDS: FINASTERIDE 5 MG TABLET. PO SCH (22:21)
[2019-07-14] MEDS: MIRTAZAPINE 15 MG TABLET PO SCH (22:21)
[2019-07-15] MEDS: ALBUTEROL SULFATE 2.5 MG/3 ML NEBU. NEB SCH ×4 (00:45→19:50)
[2019-07-15 03:10] VITALS: BP 156/71
[2019-07-15] MEDS: LEVOTHYROXINE 137 MCG TABLET PO SCH (06:00)
[2019-07-15 07:00] VITALS: BP 137/41
[2019-07-15] MEDS: INSULIN GLARGINE SYRINGE. SQ SCH (08:00)
[2019-07-15] MEDS: MEROPENEM 1 GM in IV NORMAL SALINE 100ML 100 ML IV SCH ×2 (08:20→21:42)
[2019-07-15] MEDS: DOCUSATE SODIUM 100 MG CAPSULE. PO SCH ×2 (08:22→21:00)
[2019-07-15] MEDS: LACTOBACILLUS RHAMNOSUS GG 1 CAPSULE. PO SCH ×2 (08:22→21:00)
[2019-07-15] MEDS: FERROUS SULFATE 325 MG TABLET. PO SCH (08:23)
[2019-07-15] MEDS: LINAGLIPTIN 5 MG TABLET PO SCH (08:23)
[2019-07-15] MEDS: MULTIVITAMIN with MINERAL TABLET. PO SCH (08:23)
[2019-07-15] MEDS: DIVALPROEX SPRINKLES 125 MG CAPSULE. PO SCH ×2 (08:23→21:00)
[2019-07-15] MEDS: NYSTATIN TOPICAL POWDER 15GM BOTTLE. TP SCH ×2 (08:23→21:00)
[2019-07-15] MEDS: LINEZOLID 600 MG TABLET PO SCH ×2 (08:23→21:00)
[2019-07-15 11:00] VITALS: BP 137/66
--- NOTE | 2019-07-15 11:36 | PDOC ---
Infectious Disease Note Subjective Subjective Says doing alright Fever 100.0 early this morning No N/V/D Vital Sign Vital Signs Vital Signs Date Time Temp Pulse Resp B/P (MAP) Pulse Ox O2 Delivery O2 Flow Rate FiO2 07/15/19 08:00 93 Room Air 07/15/19 07:00 98.4 84 16 137/41 (73) 98.4 07/14/19 18:40 10.0 Physical Exam PHYSICAL EXAM GENERAL: Lying down, awake, comfortable. [place] HEENT: OC/Op- clear but dry NECK: No JVD or swelling LUNGS: Clear to auscultation. HEART: S1, S2. ABDOMEN: Obese, soft, nontender with bowel sounds present A reducible hernia. EXTREMITIES: LLE edema and erythema - better. wound vac and Rooke boots in place, feet bilaterally SKIN: Warm to touch - no Rash. NEUROLOGIC: Awake, answers a few questions, otherwise quiet PIV Labs Lab Laboratory Tests Test 07/14/19 14:07 07/14/19 17:08 07/14/19 21:11 07/15/19 08:37 Glucose (Fingerstick) 224 mg/dL (70-99) 140 mg/dL (70-99) 120 mg/dL (70-99) 212 mg/dL (70-99) Micro left foot. GRAM STAIN RES 2 Final Comment Moderate gram negative rods. 07/05. URINE CULTURE RES 1 Preliminary Escherichia coli 07/05. BLOOD CULTURE Preliminary NO GROWTH AFTER 3 DAYS Objective Assessment Cellulitis left lower extremity s/p left heel sharp excisional debridement 7x7cm - MRSA/bacteroides,07/11 s/p right lateral foot and ankle excisional debridement 2x2cm each wound 07/11 Necrotic wounds, bilateral feet. MRSA/Alcaligenes/Bacteroides/Group B. 07/05 -MRI shows no evidence osteo left and x-ray showed no osteo on right -h/o MSSA infection PVD s/p right lower extremity angiography, angioplasty of the right posterior tibial artery and lateral plantar artery, 07/15 UTI - E. coli 07/05 Yeast in groin - better Diabetes with peripheral neuropathy GOVIND - better Dementia, wheelchair bound Plan Plan of Care Continue Zyvox and Merrem for now Continue Nystatin powder f/u cultures from 07/11 Local wound care and offloading as directed DM control per primary May need palliative eval D/w nursing Attending Co-Sign The patient was seen and interviewed as well as examined at the bedside. The chart was reviewed. The case was discussed. Agree with the plan of care. DEMARCUS VILLELA APRN Jul 15, 2019 11:36 KEREN ROSE MD Jul 15, 2019 13:05
--- NOTE | 2019-07-15 11:59 | PDOC ---
Provider Note Provider Note sleeping, low grade temp after leg stent- on zyvox/merem re wounds, bmp good - cont same meds SATINDER KAT MD Jul 15, 2019 11:59
[2019-07-15 15:00] VITALS: BP 131/44
[2019-07-15] MEDS: IV 1/2 NORMAL SALINE 1,000 ML IV SCH (16:05)
[2019-07-15 19:00] VITALS: BP 158/66
[2019-07-15] MEDS: MIRTAZAPINE 15 MG TABLET PO SCH (21:00)
[2019-07-15] MEDS: CITALOPRAM 20 MG TABLET. PO SCH (21:00)
[2019-07-15] MEDS: FINASTERIDE 5 MG TABLET. PO SCH (21:00)
[2019-07-15 23:00] VITALS: BP 146/44
[2019-07-16] MEDS: ALBUTEROL SULFATE 2.5 MG/3 ML NEBU. NEB SCH ×5 (00:15→23:57)
[2019-07-16 03:00] VITALS: BP 151/87
[2019-07-16] MEDS: IV 1/2 NORMAL SALINE 1,000 ML IV SCH ×2 (05:31→18:45)
[2019-07-16] MEDS: LEVOTHYROXINE 137 MCG TABLET PO SCH (06:00)
[2019-07-16 07:00] VITALS: BP 136/47
[2019-07-16] MEDS: INSULIN GLARGINE SYRINGE. SQ SCH (08:00)
[2019-07-16] MEDS: MEROPENEM 1 GM in IV NORMAL SALINE 100ML 100 ML IV SCH ×2 (08:01→19:50)
[2019-07-16] MEDS: DOCUSATE SODIUM 100 MG CAPSULE. PO SCH ×2 (08:01→19:54)
[2019-07-16] MEDS: NYSTATIN TOPICAL POWDER 15GM BOTTLE. TP SCH ×2 (08:02→22:47)
[2019-07-16] MEDS: DIVALPROEX SPRINKLES 125 MG CAPSULE. PO SCH ×2 (08:02→19:53)
[2019-07-16] MEDS: FERROUS SULFATE 325 MG TABLET. PO SCH (08:02)
[2019-07-16] MEDS: LINEZOLID 600 MG TABLET PO SCH (08:02)
[2019-07-16] MEDS: LACTOBACILLUS RHAMNOSUS GG 1 CAPSULE. PO SCH ×2 (08:02→19:53)
[2019-07-16] MEDS: LINAGLIPTIN 5 MG TABLET PO SCH (08:02)
[2019-07-16] MEDS: MULTIVITAMIN with MINERAL TABLET. PO SCH (08:02)
--- NOTE | 2019-07-16 09:52 | PDOC ---
Infectious Disease Note Subjective Subjective Refusing to eat No fevers last 24 hours Vital Sign Vital Signs Vital Signs Date Time Temp Pulse Resp B/P (MAP) Pulse Ox O2 Delivery O2 Flow Rate FiO2 07/16/19 07:36 95 Room Air 07/16/19 07:00 97.9 73 18 136/47 (76) 97.9 Physical Exam PHYSICAL EXAM GENERAL: Lying down, awake, appears, comfortable. [place], quiet LUNGS: Clear to auscultation. HEART: S1, S2. ABDOMEN: Obese, soft, nontender with bowel sounds present A reducible hernia. : [place] EXTREMITIES: LLE edema and erythema - better. wound vac and Rooke boots in place, feet bilaterally SKIN: Warm to touch - no Rash. NEUROLOGIC: Quiet, no verbal response PIV Labs Lab Laboratory Tests Test 07/15/19 11:15 07/15/19 17:01 07/15/19 20:18 07/16/19 07:46 Glucose (Fingerstick) 195 mg/dL (70-99) 188 mg/dL (70-99) 198 mg/dL (70-99) 196 mg/dL (70-99) Micro left foot. GRAM STAIN RES 2 Final Comment Moderate gram negative rods. 07/05. URINE CULTURE RES 1 Preliminary Escherichia coli 07/05. BLOOD CULTURE Preliminary NO GROWTH AFTER 3 DAYS Objective Assessment Cellulitis left lower extremity s/p left heel sharp excisional debridement 7x7cm - MRSA/bacteroides,07/11 s/p right lateral foot and ankle excisional debridement 2x2cm each wound 07/11 Necrotic wounds, bilateral feet. MRSA/Alcaligenes/Bacteroides/Group B. 07/05 -MRI shows no evidence osteo left and x-ray showed no osteo on right -h/o MSSA infection PVD s/p right lower extremity angiography, angioplasty of the right posterior tibial artery and lateral plantar artery, 07/15 UTI - E. coli 07/05 Yeast in groin - better Diabetes with peripheral neuropathy GOVIND - better Dementia, wheelchair bound Plan Plan of Care Continue Zyvox and Merrem for now Continue Nystatin powder f/u cultures from 07/11 Local wound care and offloading as directed DM control per primary May need palliative eval D/w nursing Attending Co-Sign The patient was seen and interviewed as well as examined at the bedside. The chart was reviewed. The case was discussed. Agree with the plan of care. SUBLETTE,DEMARCUS C UPHOLSTERER LIMOUSINE AND HEARSE Jul 16, 2019 09:52 KEREN ROSE MD Jul 16, 2019 11:30
--- NOTE | 2019-07-16 09:55 | PDOC ---
Provider Note Provider Note sleeping, bp ok, glucose 180-250 but record shows he last took lantus 07/10 as he refused since- feel palliative care appropriate considering mental status and severity of illness SATINDER KAT MD Jul 16, 2019 09:54
--- NOTE | 2019-07-16 09:57 | PDOC ---
Provider Note Provider Note AF VSS awake and alert wound vac dressing on the right and left foot left groin with no hematoma angiogram reviewed A/P s/p right lateral foot debridement and left large heel wound debridement - had angiogram with right posterior tibial angioplasty on wednesday. I don't see left leg imaging, will discuss with IR and may need further angiogram/intervention of the left leg. - wound VAC change tomorrow - will start plavix for the angioplasty HILTON GALLO MD Jul 16, 2019 09:57
[2019-07-16] MEDS: CLOPIDOGREL BISULFATE 75 MG TABLET PO SCH (10:00)
[2019-07-16 11:00] VITALS: BP 138/52
[2019-07-16 15:00] VITALS: BP 134/62
[2019-07-16 19:00] VITALS: BP 147/50
[2019-07-16] MEDS: FINASTERIDE 5 MG TABLET. PO SCH (19:53)
[2019-07-16] MEDS: MIRTAZAPINE 15 MG TABLET PO SCH (19:54)
--- NOTE | 2019-07-16 20:39 | NUR ---
FSBS 249 tonDr Todd morgan notified no new order.
[2019-07-16] MEDS: CITALOPRAM 20 MG TABLET. PO SCH (22:48)
[2019-07-16 23:00] VITALS: BP 131/41
[2019-07-17 03:00] VITALS: BP 149/50
--- NOTE | 2019-07-17 03:05 | NUR ---
pt able to turn from side to side tonight by himself, RN able to assessed pt and noted wound on left inner groin ,picture taken and filed, will notify bar tacker for further treatment.
[2019-07-17] MEDS: LEVOTHYROXINE 137 MCG TABLET PO SCH (06:02)
[2019-07-17] MEDS: CLOPIDOGREL BISULFATE 75 MG TABLET PO SCH (08:00)
[2019-07-17] MEDS: IV 1/2 NORMAL SALINE 1,000 ML IV SCH ×2 (08:05→21:22)
[2019-07-17] MEDS: MEROPENEM 1 GM in IV NORMAL SALINE 100ML 100 ML IV SCH ×2 (08:13→21:22)
[2019-07-17] MEDS: INSULIN GLARGINE SYRINGE. SQ SCH (08:18)
[2019-07-17] MEDS: ALBUTEROL SULFATE 2.5 MG/3 ML NEBU. NEB SCH ×3 (08:54→19:51)
[2019-07-17] MEDS: NYSTATIN TOPICAL POWDER 15GM BOTTLE. TP SCH ×2 (09:00→21:00)
[2019-07-17] MEDS: DOCUSATE SODIUM 100 MG CAPSULE. PO SCH ×2 (09:00→21:21)
[2019-07-17] MEDS: MULTIVITAMIN with MINERAL TABLET. PO SCH (09:00)
[2019-07-17] MEDS: LACTOBACILLUS RHAMNOSUS GG 1 CAPSULE. PO SCH ×2 (09:00→21:21)
[2019-07-17] MEDS: LINAGLIPTIN 5 MG TABLET PO SCH (09:00)
[2019-07-17] MEDS: DIVALPROEX SPRINKLES 125 MG CAPSULE. PO SCH ×2 (09:00→21:22)
[2019-07-17] MEDS: FERROUS SULFATE 325 MG TABLET. PO SCH (09:00)
--- NOTE | 2019-07-17 09:38 | PDOC ---
Infectious Disease Note Subjective Subjective Refusing to eat No fevers last 24 hours ROS ROS no n/v/d/ Vital Sign Vital Signs Vital Signs Date Time Temp Pulse Resp B/P (MAP) Pulse Ox O2 Delivery O2 Flow Rate FiO2 07/17/19 08:55 97 Room Air 07/17/19 03:00 98.7 73 18 149/50 (83) 98.7 Physical Exam PHYSICAL EXAM GENERAL: Lying down, awake, appears, comfortable. [place], quiet LUNGS: Clear to auscultation. HEART: S1, S2. ABDOMEN: Obese, soft, nontender with bowel sounds present A reducible hernia. : [place] EXTREMITIES: LLE edema and erythema - better. wound vac and Rooke boots in place, feet bilaterally ,, left foot calcaneal wound to bone and is not healthy yet SKIN: Warm to touch - no Rash. NEUROLOGIC: Quiet, no verbal response PIV Labs Lab Laboratory Tests Test 07/16/19 11:24 07/16/19 16:38 07/16/19 19:35 Glucose (Fingerstick) 207 mg/dL (70-99) 255 mg/dL (70-99) 249 mg/dL (70-99) Objective Assessment Cellulitis left lower extremity s/p left heel sharp excisional debridement 7x7cm - MRSA/bacteroides,07/11,, bone palpable s/p right lateral foot and ankle excisional debridement 2x2cm each wound 07/11 Necrotic wounds, bilateral feet. MRSA/Alcaligenes/Bacteroides/Group B. 07/05 -MRI shows no evidence osteo left and x-ray showed no osteo on right -h/o MSSA infection PVD s/p right lower extremity angiography, angioplasty of the right posterior tibial artery and lateral plantar artery, 07/15 UTI - E. coli 07/05 Yeast in groin - better Diabetes with peripheral neuropathy GOVIND - better Dementia, wheelchair bound Plan Plan of Care Continue Zyvox and Merrem for now Continue Nystatin powder f/u cultures from 07/11 Local wound care and offloading as directed DM control per primary May need palliative eval D/w nursing KEREN ROSE MD Jul 17, 2019 09:38
--- NOTE | 2019-07-17 09:40 | PDOC ---
Provider Note Provider Note S: Pt resting in bed. Reports no complaints. RN reports he has been refusing most of his care and PO medicines, Refusing PT. AF VSS sleepy but alert and responds appropriately wound vac dressing on the right and left foot removed. left groin with no hematoma angiogram reviewed A/P s/p right lateral foot debridement and left large heel wound debridement - had angiogram with right posterior tibial angioplasty on wednesday. We don't see left leg imaging, however pt for palliative care consult today. His left heel wound is not salvageable, however at this point pt reports not wanting any further care and refusing PT/meds/nursing assistance. Will await this discussion and further goals of care. - WC team to replace wound VAC today - continue plavix for the angioplasty FRANCISCA BENJAMIN Jul 17, 2019 09:40
[2019-07-17 11:00] VITALS: BP 129/45
--- NOTE | 2019-07-17 13:07 | NUR ---
SS following up with discharge planning. Updates phoned and faxed to [facility], ; fax [phone]. Palliative Care consulted. Pt able to return to LTC placement at [facility] when ready. SS will continue to follow for discharge planning.
[2019-07-17 15:00] VITALS: BP 152/57
[2019-07-17] MEDS: MORPHINE SULFATE 2 MG/ML VIAL. IV PRN (15:58)
--- NOTE | 2019-07-17 16:49 | NUR ---
Wound Care: Follow up wound care s/p I&D of L heel, and R lateral foot wounds. Wounds cleansed and assessed. Patient given pain medication. Pt has arterial ulcers to anterior and lateral left ankle, covered with foams for protection. Skin prepped and Foot wounds dressed with wound vac, one piece of black foam to left heel with a good seal maintained at 125mmHg continuous. Skin prepped, 1 piece of Veraflo black foam placed to each wound and tracked to the right dorsal foot with settings of 8mL for 5 minutes every 4 hours. Good seal maintained. WC will continue to follow for dressing changes.
--- NOTE | 2019-07-17 18:54 | PDOC2 ---
PALLIATIVE CARE Palliative Care Note Palliative Care Consult requested by to address goals of care. Patient refusing treatment. Pulling IV's out per staff. Medical Assessment per medical record; A/P s/p right lateral foot debridement and left large heel wound debridement - had angiogram with right posterior tibial angioplasty on wednesday. We don't see left leg imaging, however pt for palliative care consult today. His left heel wound is not salvageable, however at this point pt reports not wanting any further care and refusing PT/meds/nursing assistance. Will await this discussion and further goals of care. - team to replace wound VAC today - continue plavix for the angioplasty 1899; Spoke with Donna BROWNE. Plan meeting tomorrow at [facility] Jul 17, 2019 18:54
[2019-07-17 19:00] VITALS: BP 144/50
[2019-07-17] MEDS: FINASTERIDE 5 MG TABLET. PO SCH (21:21)
[2019-07-17] MEDS: MIRTAZAPINE 15 MG TABLET PO SCH (21:22)
[2019-07-17] MEDS: CITALOPRAM 20 MG TABLET. PO SCH (21:22)
[2019-07-17 23:00] VITALS: BP 152/59
[2019-07-18 03:00] VITALS: BP 139/58
[2019-07-18] MEDS: LEVOTHYROXINE 137 MCG TABLET PO SCH (06:00)
[2019-07-18 07:00] VITALS: BP 154/58
[2019-07-18] MEDS: ALBUTEROL SULFATE 2.5 MG/3 ML NEBU. NEB SCH ×4 (07:16→19:58)
--- NOTE | 2019-07-18 07:56 | PDOC ---
Provider Note Provider Note Vascular - awaiting palliative care meeting A/P s/p right lateral foot debridement and left large heel wound debridement - had angiogram with right PT angioplasty on wednesday. We don't see left leg imaging, however pt for palliative care consult today. His left heel wound is not salvageable, however at this point pt reports not wanting any further care and refusing PT/meds/nursing assistance. Will await this discussion and further goals of care. - WC team to replace wound VAC today, recommend continued vac therapy unless decision to withdrawal all care - continue plavix for the angioplasty FRANCISCA BENJAMIN Jul 18, 2019 07:56
[2019-07-18] MEDS: CLOPIDOGREL BISULFATE 75 MG TABLET PO SCH (08:00)
[2019-07-18] MEDS: INSULIN GLARGINE SYRINGE. SQ SCH (08:00)
[2019-07-18] MEDS: MEROPENEM 1 GM in IV NORMAL SALINE 100ML 100 ML IV SCH ×2 (08:01→21:00)
[2019-07-18] MEDS: LACTOBACILLUS RHAMNOSUS GG 1 CAPSULE. PO SCH ×2 (08:06→21:00)
[2019-07-18] MEDS: DIVALPROEX SPRINKLES 125 MG CAPSULE. PO SCH ×2 (08:06→21:00)
[2019-07-18] MEDS: DOCUSATE SODIUM 100 MG CAPSULE. PO SCH ×2 (08:06→21:00)
[2019-07-18] MEDS: FERROUS SULFATE 325 MG TABLET. PO SCH (08:06)
[2019-07-18] MEDS: MULTIVITAMIN with MINERAL TABLET. PO SCH (08:07)
[2019-07-18] MEDS: NYSTATIN TOPICAL POWDER 15GM BOTTLE. TP SCH ×2 (08:07→21:00)
[2019-07-18] MEDS: LINAGLIPTIN 5 MG TABLET PO SCH (08:07)
--- NOTE | 2019-07-18 08:30 | PDOC ---
Provider Note Provider Note vss, glucose labile as he refuses most injections- family meeting today re his disposition as prognosis is poor SATINDER KAT MD Jul 18, 2019 08:30
--- NOTE | 2019-07-18 09:16 | PDOC ---
Infectious Disease Note Subjective Subjective Refusing to eat No fevers last 24 hours ROS ROS no n/v/d/sob Vital Sign Vital Signs Vital Signs Date Time Temp Pulse Resp B/P (MAP) Pulse Ox O2 Delivery O2 Flow Rate FiO2 07/18/19 07:18 97 Room Air 07/18/19 07:00 98.2 70 16 154/58 (90) 98.2 Physical Exam PHYSICAL EXAM GENERAL: Lying down, awake, appears, comfortable. [place], quiet LUNGS: Clear to auscultation. HEART: S1, S2. ABDOMEN: Obese, soft, nontender with bowel sounds present A reducible hernia. : [place] EXTREMITIES: LLE edema and erythema - better. wound vac and Rooke boots in place, feet bilaterally ,, left foot calcaneal wound to bone and is not healthy yet SKIN: Warm to touch - no Rash. NEUROLOGIC: Quiet, no verbal response PIV Labs Lab Laboratory Tests Test 07/17/19 11:16 07/17/19 20:33 07/18/19 07:33 Glucose (Fingerstick) 282 mg/dL (70-99) 171 mg/dL (70-99) 117 mg/dL (70-99) Micro Microbiology 07/11/19 Fungal Culture - Preliminary, Resulted 07/11/19 Fungal Culture Result 1 - Preliminary, Resulted 07/05/19 Urine Culture - Final, Complete 07/05/19 Urine Culture Result 1 (DENIS) - Final, Complete 07/05/19 Antimicrobic Susceptibility - Final, Complete 07/05/19 Blood Culture - Final, Complete NO GROWTH AFTER 5 DAYS Objective Assessment Cellulitis left lower extremity s/p left heel sharp excisional debridement 7x7cm - MRSA/bacteroides,07/11,, bone palpable s/p right lateral foot and ankle excisional debridement 2x2cm each wound 07/11 Necrotic wounds, bilateral feet. MRSA/Alcaligenes/Bacteroides/Group B. 07/05 -MRI shows no evidence osteo left and x-ray showed no osteo on right -h/o MSSA infection PVD s/p right lower extremity angiography, angioplasty of the right posterior tibial artery and lateral plantar artery, 07/15 UTI - E. coli 07/05 Yeast in groin - better Diabetes with peripheral neuropathy GOVIND - better Dementia, wheelchair bound Plan Plan of Care Continue Zyvox and Merrem for now Continue Nystatin powder f/u cultures from 07/11 Local wound care and offloading as directed DM control per primary palliative meeting today D/w nursing KEREN ROSE MD Jul 18, 2019 09:16
[2019-07-18 11:00] VITALS: BP 155/61
[2019-07-18] MEDS: IV 1/2 NORMAL SALINE 1,000 ML IV SCH (13:48)
--- NOTE | 2019-07-18 13:50 | PDOC2 ---
PALLIATIVE CARE Palliative Care Note Palliative Care Patient resting. Refusing treatments, meds. Met with patient's DPJOAN Thompson and Bg De Souza. States they are friends/tenriism members and have assisted patient and his sister for many years. Donna states she has shown copy of POA Document to staff. No copy noted in record. [facility] called. Message to have fax copy of document to [facility]> Reviewed medical condition; Cellulitis left lower extremity s/p left heel sharp excisional debridement 7x7cm - MRSA/bacteroides,07/11,, bone palpable s/p right lateral foot and ankle excisional debridement 2x2cm each wound 07/11 Necrotic wounds, bilateral feet. MRSA/Alcaligenes/Bacteroides/Group B. 07/05 -MRI shows no evidence osteo left and x-ray showed no osteo on right -h/o MSSA infection PVD s/p right lower extremity angiography, angioplasty of the right posterior tibial artery and lateral plantar artery, 07/15 UTI - E. coli 07/05 Yeast in groin - better Diabetes with peripheral neuropathy GOVIND - better Dementia, wheelchair bound Donna and Bg shared that patient would not want aggressive care/amputation. He would want to return to [facility] and be kept comfortable. Patient has had mental health issues for many years. Has been talking to family members lately. They would like to focus on his comfort. Return to [facility] with Hospice. They will return call with name of hospice agency they "do not want" and otherwise they have no preference. Discussed Code Status: DNR/DNI. Understands without this attempt he likely would . Outside the Hospital DNR/DNI form signed. Plan: DNR/DNI Return to [facility] with Hospice. Reviewed with Leena who will give info. to [facility] Jul 18, 2019 13:50
[2019-07-18 19:35] VITALS: BP 154/56
[2019-07-18] MEDS: FINASTERIDE 5 MG TABLET. PO SCH (21:00)
[2019-07-18] MEDS: CITALOPRAM 20 MG TABLET. PO SCH (21:00)
[2019-07-18] MEDS: MIRTAZAPINE 15 MG TABLET PO SCH (21:00)
[2019-07-18 23:15] VITALS: BP 154/56
[2019-07-19] MEDS: ALBUTEROL SULFATE 2.5 MG/3 ML NEBU. NEB SCH ×3 (00:18→11:13)
[2019-07-19 03:05] VITALS: BP 109/51
[2019-07-19] MEDS: IV 1/2 NORMAL SALINE 1,000 ML IV SCH (03:28)
[2019-07-19] MEDS: LEVOTHYROXINE 137 MCG TABLET PO SCH (06:00)
[2019-07-19 07:00] VITALS: BP 147/54
[2019-07-19] MEDS: INSULIN GLARGINE SYRINGE. SQ SCH (08:00)
[2019-07-19] MEDS: CLOPIDOGREL BISULFATE 75 MG TABLET PO SCH (08:00)
--- NOTE | 2019-07-19 08:16 | PDOC ---
Provider Note Provider Note Vascular Reviewed Palliative care note - Pt returning to [facility] with hospice, we will sign off. Would continue local wound care to wounds that is compatible with hospice and keeping patient comfortable, but with attempt to keep wounds clean to prevent occult infection. FRANCISCA BENJAMIN Jul 19, 2019 08:16
[2019-07-19] MEDS: MEROPENEM 1 GM in IV NORMAL SALINE 100ML 100 ML IV SCH (08:21)
[2019-07-19] MEDS: LINAGLIPTIN 5 MG TABLET PO SCH (09:00)
[2019-07-19] MEDS: FERROUS SULFATE 325 MG TABLET. PO SCH (09:00)
[2019-07-19] MEDS: DOCUSATE SODIUM 100 MG CAPSULE. PO SCH (09:00)
[2019-07-19] MEDS: MULTIVITAMIN with MINERAL TABLET. PO SCH (09:00)
[2019-07-19] MEDS: NYSTATIN TOPICAL POWDER 15GM BOTTLE. TP SCH (09:00)
[2019-07-19] MEDS: LACTOBACILLUS RHAMNOSUS GG 1 CAPSULE. PO SCH (09:00)
[2019-07-19] MEDS: DIVALPROEX SPRINKLES 125 MG CAPSULE. PO SCH (09:00)
--- NOTE | 2019-07-19 09:10 | PDOC ---
Infectious Disease Note Subjective Subjective Refusing to eat No fevers last 24 hours ROS ROS no n/v/d/ Vital Sign Vital Signs Vital Signs Date Time Temp Pulse Resp B/P (MAP) Pulse Ox O2 Delivery O2 Flow Rate FiO2 07/19/19 07:30 96 Room Air 07/19/19 07:00 98.2 68 16 147/54 (85) 98.2 Physical Exam PHYSICAL EXAM GENERAL: Lying down, awake, appears, comfortable. [place], quiet LUNGS: Clear to auscultation. HEART: S1, S2. ABDOMEN: Obese, soft, nontender with bowel sounds present A reducible hernia. : [place] EXTREMITIES: LLE edema and erythema - better. wound vac and Rooke boots in place, feet bilaterally ,, left foot calcaneal wound to bone and is not healthy yet SKIN: Warm to touch - no Rash. NEUROLOGIC: Quiet, no verbal response PIV Labs Lab Laboratory Tests Test 07/18/19 11:10 07/18/19 17:21 07/18/19 21:48 07/19/19 08:12 Glucose (Fingerstick) 120 mg/dL (70-99) 150 mg/dL (70-99) 214 mg/dL (70-99) 162 mg/dL (70-99) Micro Objective Assessment Cellulitis left lower extremity s/p left heel sharp excisional debridement 7x7cm - MRSA/bacteroides,07/11,, bone palpable s/p right lateral foot and ankle excisional debridement 2x2cm each wound 07/11 Necrotic wounds, bilateral feet. MRSA/Alcaligenes/Bacteroides/Group B. 07/05 -MRI shows no evidence osteo left and x-ray showed no osteo on right -h/o MSSA infection PVD s/p right lower extremity angiography, angioplasty of the right posterior tibial artery and lateral plantar artery, 07/15 UTI - E. coli 07/05 Yeast in groin - better Diabetes with peripheral neuropathy GOVIND - better Dementia, wheelchair bound Plan Plan of Care Continue Zyvox and Merrem for now Continue Nystatin powder f/u cultures from 07/11 Local wound care and offloading as directed DM control per primary D/w nursing pt to go back to [place] with hospice KEREN ROSE MD Jul 19, 2019 09:10
[2019-07-19 11:00] VITALS: BP 111/43
--- NOTE | 2019-07-19 12:46 | NUR ---
SS following up with discharge planning. SS spoke with pt's daughter, Donna, via phone. Pt's daughter reported that she could not get a hold of her sister and wanted to use the hospice that [facility] recommended. SS contacted, Griselda, at [facility] and was notified that they use [facility]. SS phoned and faxed referral to [facility], ; fax [phone]. SS phoned and faxed updated clinical to [facility]. SS received notification from [facility] that they have an appt. with pt's daughter at 1400 and are okay with discharge to [facility] anytime after that. SS currently awaiting discharge orders for hospice and will proceed accordingly with discharge to facility.
--- NOTE | 2019-07-19 14:56 | NUR ---
Wound care: Patient seen per wound care follow. Patient has anticipated discharge back to [facility]. No discharge orders at this time. Wound care will see patient tomorrow to change dressings. If patient should discharge today remove dressings, cleanse, measure, and picture wounds for discharge. Redress with Xeroform gauze, ABD pads, and kerlix to bilateral heels.
[2019-07-19 15:00] VITALS: BP 126/60
--- NOTE | 2019-07-19 16:00 | NUR ---
SS following up with discharge planning. Discharge orders received for return to [facility]. SS phoned and faxed discharge orders to [facility], ; fax [phone], and [facility], ; fax [phone]. Pt will discharge today and return to [facility] between 1730 and 1800. [facility] to provide transportation. Pt, pt's RN, and pt's family notified.
--- NOTE | 2019-07-19 17:38 | NUR ---
attempted to call report to [facility] with no answer.
--- NOTE | 2019-07-19 18:14 | NUR ---
Discharge Note: [facility] Discharge instructions and discharge home medications reviewed with Other facility and a copy given. All questions have been answered and understanding verbalized. The following instructions and handouts were given: diet, activity, medication list and follow up instructions. Discontinued lines and drains: Peripheral IV discontinued and catheter intact. Patient discharged to [facility] with [facility]ulance Personnel via [facility]
== END 2019-07-19 18:00 | disposition hospice, home (50) | DRG 622 ==
LOC: ER 19:04 → 4 NORTH 21:24 → 1 WEST ICU 07-14 15:09 → 4 NORTH 07-14 21:30
PROVIDERS: ADMIT Family Medicine; ATTEND Family Medicine
PROC: 0JBQ0ZZ Excision of Right Foot Subcutaneous Tissue and Fascia, Open Approach (ICD-10-PCS; 2019-07-11)
PROC: 0KBS0ZZ Excision of Right Lower Leg Muscle, Open Approach (ICD-10-PCS; 2019-07-11)
PROC: 0JBR0ZZ Excision of Left Foot Subcutaneous Tissue and Fascia, Open Approach (ICD-10-PCS; principal; 2019-07-11 10:45)
PROC: 047R3ZZ Dilation of Right Posterior Tibial Artery, Percutaneous Approach (ICD-10-PCS; 2019-07-14)
PROC: B4101ZZ Fluoroscopy of Abdominal Aorta using Low Osmolar Contrast (ICD-10-PCS; 2019-07-14)
PROC: B41C1ZZ Fluoroscopy of Pelvic Arteries using Low Osmolar Contrast (ICD-10-PCS; 2019-07-14)
PROC: B41F1ZZ Fluoroscopy of Right Lower Extremity Arteries using Low Osmolar Contrast (ICD-10-PCS; 2019-07-14)
DX: E11.621 Type 2 diabetes mellitus with foot ulcer (principal); E43 Unspecified severe protein-calorie malnutrition; L03.116 Cellulitis of left lower limb; E11.52 Type 2 diabetes mellitus with diabetic peripheral angiopathy with gangrene; N39.0 Urinary tract infection, site not specified; L03.115 Cellulitis of right lower limb; N17.9 Acute kidney failure, unspecified; E11.40 Type 2 diabetes mellitus with diabetic neuropathy, unspecified; L97.509 Non-pressure chronic ulcer of other part of unspecified foot with unspecified severity; B95.62 Methicillin resistant Staphylococcus aureus infection as the cause of diseases classified elsewhere; B96.20 Unspecified Escherichia coli [E. coli] as the cause of diseases classified elsewhere; B37.2 Candidiasis of skin and nail; E03.9 Hypothyroidism, unspecified; E11.42 Type 2 diabetes mellitus with diabetic polyneuropathy; E11.628 Type 2 diabetes mellitus with other skin complications; E78.5 Hyperlipidemia, unspecified; F02.80 Dementia in other diseases classified elsewhere, unspecified severity, without behavioral disturbance, psychotic disturbance, mood disturbance, and anxiety; G30.9 Alzheimer's disease, unspecified; I10 Essential (primary) hypertension; I25.10 Atherosclerotic heart disease of native coronary artery without angina pectoris; I25.2 Old myocardial infarction; K21.9 Gastro-esophageal reflux disease without esophagitis; L97.519 Non-pressure chronic ulcer of other part of right foot with unspecified severity; L97.529 Non-pressure chronic ulcer of other part of left foot with unspecified severity; N40.0 Benign prostatic hyperplasia without lower urinary tract symptoms; Z79.02 Long term (current) use of antithrombotics/antiplatelets; Z86.19 Personal history of other infectious and parasitic diseases; Z86.718 Personal history of other venous thrombosis and embolism; Z96.642 Presence of left artificial hip joint; Z99.3 Dependence on wheelchair; B95.61 Methicillin susceptible Staphylococcus aureus infection as the cause of diseases classified elsewhere; F32.9 Major depressive disorder, single episode, unspecified; F41.9 Anxiety disorder, unspecified; Z74.01 Bed confinement status; Z51.5 Encounter for palliative care; Z68.26 Body mass index [BMI] 26.0-26.9, adult
CPT/HCPCS: 36415; 37228; 71045; 73620; 73718; 75625; 75710; 76937; 80048; 80053; 81001; 82728; 82962; 83036; 83520; 83540; 83550; 83605; 84145; 84165; 85025; 85027; 85610; 87040; 87071; 87075; 87086; 87102; 87186; 90471; 90686; 93925; 94640; 94760; 96365; 96366; 96375; A7015; C1760; C1769; C1885; C1892; C1894; G0269; J0692; J1644; J1815; J2001; J2020; J2185; J2270; J2370; J2704; J3370; J3420; J7040; J7042; J7120; J7613; Q9967; 97110; 97530; 97535; 99285-25; G0378